=== PATIENT | female | born 1950 | race Caucasian/White ===

== ENCOUNTER 2019-11-23 10:41 | Outpatient (REF) | payer MEDICARE, OTHER, SELFPAY ==
[2019-11-23 12:15] LABS: MANUAL DIFF FLAG NO
[2019-11-23 12:23] LABS: Basophils Absolute Auto 0.1 X10*3/uL (0.0-0.2); Basophils Percent Auto 0.6 % (0-2); Eosinophils Absolute Auto 0.1 X10*3/uL (0.0-0.4); Eosinophils Percent Auto 1.4 % (0-4); Hematocrit 43.7 % (37-47); Hemoglobin 13.1 g/dl (12.0-16.0); Imm Gran Abs Auto 0.02 X10*3/uL (0.00-0.03); Imm Gran Pct Auto 0.2 % (0.0-0.4); Lymphocytes Absolute Auto 3.1 X10*3/uL (1.2-4.9); Lymphocytes Percent Auto 38.4 % (20-40); Mean Corpuscular Hemoglobin 22.8 pg (27.0-33.0); Mean Corpuscular Volume 76.1 fL (80-98); Mean Platelet Volume 9.5 fL (9.4-12.3); Monocytes Absolute Auto 0.5 X10*3/uL (0.1-1.2); Monocytes Percent Auto 5.6 % (2-11); Neutrophils Absolute Auto 4.4 X10*3/uL (2.0-8.3); Neutrophils Percent Auto 53.8 % (45-73); Platelet Count 469 X10*3/uL (160-400); Red Blood Count 5.74 X10*6/uL (4.20-5.50); Red Cell Distribution Width 14.4 % (11.0-16.0); White Blood Count 8.1 X10*3/uL (4.8-10.8)
[2019-11-23 12:57] LABS: Anion Gap 16 (12-20); Blood Urea Nitrogen 22 mg/dL (9-16); Carbon Dioxide 26 mmol/L (22-29); Chloride 99 mmol/L (96-108); Estimated Glomerular Filt Rate 55; Glucose Fasting 172 mg/dL (60-99); Potassium 4.7 mmol/l (3.3-5.1); Sodium 136 mmol/L (135-145)
[2019-11-23 13:19] LABS: Calcium 10.5 mg/dL (8.4-10.2)
[2019-11-23 14:43] LABS: Estimated Average Glucose 226 mg/dL; Hemoglobin A1c % 9.5 %
== END 2019-11-23 10:42 | disposition home or self-care (01) ==
LOC: HO.LAB 10:41
PROVIDERS: PCP Internal Medicine; Visit Provider Nurse Practitioner Family
DX: Z01.818 Encounter for other preprocedural examination (principal)
CPT/HCPCS: 36415; 80048; 83036; 85025

== ENCOUNTER 2020-01-20 07:05 | Outpatient (REF) | payer MEDICARE, OTHER, SELFPAY ==
[2020-01-20 07:45] LABS: Basophils Absolute Auto 0.1 X10*3/uL (0.0-0.2); Basophils Percent Auto 0.7 % (0-2); Eosinophils Absolute Auto 0.2 X10*3/uL (0.0-0.4); Eosinophils Percent Auto 2.3 % (0-4); Hemoglobin 12.2 g/dl (12.0-16.0); Imm Gran Abs Auto 0.02 X10*3/uL (0.00-0.03); Imm Gran Pct Auto 0.3 % (0.0-0.4); Lymphocytes Absolute Auto 3.1 X10*3/uL (1.2-4.9); Lymphocytes Percent Auto 42.1 % (20-40); Mean Corpuscular HGB Conc 30.5 g/dl (31.0-35.0); Mean Corpuscular Hemoglobin 22.8 pg (27.0-33.0); Mean Corpuscular Volume 74.9 fL (80-98); Monocytes Absolute Auto 0.4 X10*3/uL (0.1-1.2); Monocytes Percent Auto 5.4 % (2-11); Neutrophils Absolute Auto 3.7 X10*3/uL (2.0-8.3); Neutrophils Percent Auto 49.2 % (45-73); Platelet Count 412 X10*3/uL (160-400); Red Blood Count 5.34 X10*6/uL (4.20-5.50); Red Cell Distribution Width 14.3 % (11.0-16.0); White Blood Count 7.4 X10*3/uL (4.8-10.8)
[2020-01-20 07:46] LABS: MANUAL DIFF FLAG NO
[2020-01-20 07:56] LABS: Glucose Urine UA NEG (NEG); Leukocyte Esterase Urine NEG (NEG); Nitrite Urine NEG (NEG); Urine Blood 1+ (NEG); Urine Ketones NEG (NEG); Urine Protein NEG (NEG-TRACE)
[2020-01-20 08:03] LABS: Appearance Urine CLEAR; Color Urine YELLOW
[2020-01-20 08:16] LABS: Alanine Aminotransferase 22 U/L (0-31); Albumin Level 4.4 g/dL (3.5-5.0); Alkaline Phosphatase 109 U/L (39-117); Anion Gap 12 (12-20); Aspartate Amino Transferase 17 U/L (5-31); Bilirubin Total 0.5 mg/dL (0.0-1.0); Blood Urea Nitrogen 15 mg/dL (9-16); Calcium 9.9 mg/dL (8.4-10.2); Carbon Dioxide 28 mmol/L (22-29); Chloride 99 mmol/L (96-108); Cholesterol 187 mg/dL; Estimated Glomerular Filt Rate > 60; Glucose Random 243 mg/dL (60-115); HDL Cholesterol 47 mg/dL; LDL Cholesterol Calculated 111 mg/dl; Potassium 4.4 mmol/l (3.3-5.1); Sodium 135 mmol/L (135-145); Squamous Epithelial Cell Urine 1+ /LPF; Total Protein 7.4 g/dL (6.5-8.0); Triglycerides 148 mg/dL
[2020-01-20 09:08] LABS: Folate > 20.0 ng/mL (> or = 4.0); Vitamin B12 729 pg/mL (200-900)
[2020-01-20 09:19] LABS: Creatinine Urine 87.68 mg/dL; Microalbum/Creatinine Ratio Ur 51.3 ug/mg cr
== END 2020-01-20 07:06 | disposition home or self-care (01) ==
LOC: HO.LAB 07:05
PROVIDERS: PCP Internal Medicine; Visit Provider Internal Medicine
DX: E11.65 Type 2 diabetes mellitus with hyperglycemia (principal); E78.00 Pure hypercholesterolemia, unspecified
CPT/HCPCS: 36415; 80053; 80061; 81001; 82043; 82607; 82746; 84439; 84443; 85025

== ENCOUNTER → 2020-02-17 09:28 | Outpatient (BNVA) | payer MEDICARE, OTHER, SELFPAY | PROVIDERS: PCP Internal Medicine; Referring Provider Internal Medicine; Visit Provider Internal Medicine | DX: Z13.89 Encounter for screening for other disorder (principal) | CPT/HCPCS: Q3014 ==

== ENCOUNTER → 2020-02-23 12:18 | Outpatient (BNVA) | payer MEDICARE, OTHER, SELFPAY | PROVIDERS: PCP Internal Medicine; Visit Provider Dietitian, Registered | DX: Z76.89 Persons encountering health services in other specified circumstances (principal) ==

== ENCOUNTER 2020-03-29 11:20 | Outpatient (REF) | payer MEDICARE, OTHER, SELFPAY | END 2020-03-29 11:21 | disposition home or self-care (01) | LOC: HO.LAB 11:20 | PROVIDERS: PCP Neurological Surgery; Referring Provider Obstetrics & Gynecology; Visit Provider Internal Medicine | DX: Z20.822 Contact with and (suspected) exposure to COVID-19 (principal) | CPT/HCPCS: 36415; C9803; U0003; U0005 ==

== ENCOUNTER 2020-04-13 08:22 | Outpatient (REF) | payer MEDICARE, OTHER, SELFPAY ==
--- NOTE | ~2020-04-13 | MM_ITS ---
EXAMINATION: BONE DENSITOMETRY CLINICAL INDICATION: Age-related osteoporosis without current pathological fracture. COMPARISON: Baseline BD dated 06/12/2018. TECHNIQUE: Using a [employer] DXA System (software version: 13.1) manufactured by [employer], dual-energy x-ray absorptiometry was performed of the lumbar spine and left hip. The images are of good technical quality. Summary results are attached. FINDINGS: AP SPINE L1-L2 (excluding L3 and L4): The data of L1-L4 has been changed to exclude the L3 and L4 vertebral bodies, because hardware overlying these levels may cause overestimation of lumbar spine density. Current: BMD 0.673 g/cm2, Z-score -2.4, T-score -4.1, osteoporosis, 15.5% decrease from baseline (<5% change is not significant). Baseline: BMD 0.796 g/cm2. LEFT FEMUR, NECK: Current: BMD 0.641 g/cm2, Z-score -1.1, T-score -2.9, osteoporosis. Baseline: BMD 0.716 g/cm2. LEFT FEMUR, TOTAL: Current: BMD 0.631 g/cm2, Z-score -1.5, T-score -3.0, osteoporosis, 13.2% decrease from baseline (<5% change is not significant). Baseline: BMD 0.727 g/cm2. IDENTIFIED RISK FACTORS: Osteoporosis, history of fracture (adult). Early menopause, secondary osteoporosis, hysterectomy, left oophorectomy. HISTORY OF FRACTURE: Knee. MEDICATIONS: Calcium supplements or multivitamin, vitamin D. MM/XR DEXA axial skeleton IMPRESSION: 1. DIAGNOSIS: Osteoporosis based on the lowest T-score value of -4.1 in the lumbar spine applying World Health Organization criteria. 2. 10-YEAR FRACTURE RISK PREDICTION, FRAX: Major osteoporotic fracture (clinical spine, forearm, hip or shoulder) 26.8%. Hip fracture 8.3%. 3. Treatment Recommendations: NOF guidelines recommend consideration for treatment in postmenopausal women and men age 50 and older presenting with the following: -A hip or vertebral (clinical or morphometric) fracture. -T-score less than or equal to -2.5 at the femoral neck or spine after appropriate evaluation to exclude secondary causes. -Low bone mass at the hip or spine and a 10-year fracture probability by FRAX of greater than or equal to 3% for hip fracture or greater than or equal to 20% for major osteoporotic fracture based on the [place] adapted WHO algorithm. 4. Other Recommendations: All treatment decisions require clinical judgment and consideration of individual patient factors, including patient preferences, comorbidities, previous drug use, risk factors not captured in the FRAX model (e.g. frailty, falls, vitamin D deficiency, increased bone turnover, interval significant decline in bone density) and possible under or overestimation of fracture risk by FRAX. Additional medical evaluation for secondary cause of low bone mineral density may be appropriate. FUTURE SCAN RECOMMENDATION: People with diagnosed cases of osteoporosis or at high risk for fracture should have regular bone mineral density tests. For patients eligible for Medicare, routine testing is allowed once every 2 years. The testing frequency can be increased to one year for patients who have rapidly progressing disease, those who are receiving or discontinuing medical therapy to restore bone mass, or have additional risk factors.
== END 2020-04-13 08:23 | disposition home or self-care (01) ==
LOC: HO.MAMMO 08:22
PROVIDERS: Visit Provider Internal Medicine
DX: M81.0 Age-related osteoporosis without current pathological fracture (principal); E04.1 Nontoxic single thyroid nodule; Z78.0 Asymptomatic menopausal state; Z90.710 Acquired absence of both cervix and uterus; Z90.721 Acquired absence of ovaries, unilateral
CPT/HCPCS: 77080

== ENCOUNTER 2020-04-18 12:18 | Outpatient (REF) | payer MEDICARE, OTHER, SELFPAY ==
--- NOTE | ~2020-04-18 | US_ITS ---
EXAMINATION: US THYROID CLINICAL INFORMATION: Nontoxic single thyroid nodule. COMPARISON: None TECHNIQUE: Linear transducer grayscale and color Doppler examination with attention to the region of the thyroid. FINDINGS: SIZE: Measurements of the thyroid lobes and nodules are given in sagittal, anteroposterior and transverse dimensions respectively. Right Thyroid Lobe: 4.5 x 1.8 x 1.5 cm, volume 6.4 mL. Parenchyma: The gland echotexture is heterogeneous. Thyroid vascularity is normal. Left Thyroid Lobe: 4.8 x 1.9 x 1.3 cm, volume 6.2 mL. Parenchyma: The gland echotexture is heterogeneous. Thyroid vascularity is normal. Isthmus: 0.5 cm in maximum AP dimension. Estimated total number of nodules greater than or equal to 1 cm: 3. [employer] nodules are described as follows: 1. Location: Right mid. Size: 1.0 x 0.8 x 0.9 cm, volume 4 mL. Nodule characteristics: Composition: Solid (2). Echogenicity: Hypoechoic (2). Shape: Not taller than wide (0). Margins: Smooth (0). Echogenic Foci: Punctate echogenic foci (3). ACR TI-RADS total points: 7 ACR TI-RADS category: 5 2. Location: Right mid. Size: 1.0 x 0.8 x 0.8 cm, volume 0.3 mL. Nodule characteristics: Composition: Solid (2). Echogenicity: Hyperechoic (1). Shape: Not taller than wide (0). Margins: Ill-defined (0). Echogenic Foci: None (0). ACR TI-RADS total points: 3 ACR TI-RADS category: 3 3. Location: Left inferior. Size: 1.3 x 1.2 x 1.7 cm, volume 1.4 mL. Nodule characteristics: Composition: Solid (2). Echogenicity: Hyperechoic (1). Shape: Not taller than wide (0). Margins: Smooth (0). Echogenic Foci: None (0). ACR TI-RADS total points: 3 ACR TI-RADS category: 3 NODES: No lymphadenopathy is seen in the tissue surrounding the thyroid gland. US/US thyroid IMPRESSION: Bilateral thyroid nodules. Fine-needle aspiration of the 1 cm nodule with calcification in the mid right lobe and continued ultrasound follow-up should be considered as described below. ACR TI-RADS RECOMMENDATION REFERENCE: Ultrasound-guided fine-needle aspiration, followup ultrasound, no further follow up. * TR1 (0 point) and TR 2 (2 points): No FNA or follow up * TR3 (3 points): FNA if more than or equal to 2.5 cm in maximum dimension, followup ultrasound in 1, 3 and 5 years if 1.5 to 2.4 cm in maximum dimension. * TR4 (4-6 points): FNA if more than or equal to 1.5 cm in maximum dimension, followup ultrasound in 1, 2, 3 and 5 years if 1 to 1.4 cm in maximum dimension. * TR5 (more than or equal to 7 points): FNA if more than or equal to 1 cm in maximum dimension, followup ultrasound every year for 5 years if 0.5 to 0.9 cm in maximum dimension. * TR3, TR4 or TR5 nodules that are below the size threshold for follow up receive no follow up.
== END 2020-04-18 12:19 | disposition home or self-care (01) ==
LOC: HO.US 12:18
PROVIDERS: Visit Provider Internal Medicine
DX: E04.1 Nontoxic single thyroid nodule (principal); M81.0 Age-related osteoporosis without current pathological fracture
CPT/HCPCS: 76536

== ENCOUNTER 2020-04-19 13:31 | Outpatient (REF) | payer MEDICARE, OTHER, SELFPAY ==
[2020-04-19 16:02] LABS: MANUAL DIFF FLAG NO
[2020-04-19 16:18] LABS: Basophils Absolute Auto 0.1 X10*3/uL (0.0-0.2); Basophils Percent Auto 0.6 % (0-2); Eosinophils Absolute Auto 0.2 X10*3/uL (0.0-0.4); Eosinophils Percent Auto 2.6 % (0-4); Estimated Average Glucose 269 mg/dL; Hematocrit 40.1 % (37-47); Hemoglobin 12.4 g/dl (12.0-16.0); Imm Gran Abs Auto 0.02 X10*3/uL (0.00-0.03); Imm Gran Pct Auto 0.2 % (0.0-0.4); Lymphocytes Absolute Auto 3.9 X10*3/uL (1.2-4.9); Lymphocytes Percent Auto 44.2 % (20-40); Mean Corpuscular HGB Conc 30.9 g/dl (31.0-35.0); Mean Corpuscular Hemoglobin 23.2 pg (27.0-33.0); Mean Platelet Volume 9.9 fL (9.4-12.3); Monocytes Absolute Auto 0.5 X10*3/uL (0.1-1.2); Monocytes Percent Auto 5.8 % (2-11); Neutrophils Absolute Auto 4.1 X10*3/uL (2.0-8.3); Neutrophils Percent Auto 46.6 % (45-73); Platelet Count 420 X10*3/uL (160-400); Red Blood Count 5.35 X10*6/uL (4.20-5.50); Red Cell Distribution Width 14.4 % (11.0-16.0); White Blood Count 8.8 X10*3/uL (4.8-10.8)
[2020-04-19 16:30] LABS: Alanine Aminotransferase 21 U/L (0-31); Albumin Level 4.3 g/dL (3.5-5.0); Alkaline Phosphatase 97 U/L (39-117); Anion Gap 13 (12-20); Aspartate Amino Transferase 18 U/L (5-31); Bilirubin Total 0.4 mg/dL (0.0-1.0); Blood Urea Nitrogen 22 mg/dL (9-16); Calcium 10.2 mg/dL (8.4-10.2); Carbon Dioxide 26 mmol/L (22-29); Chloride 100 mmol/L (96-108); Cholesterol 230 mg/dL; Estimated Glomerular Filt Rate 48; Glucose Random 194 mg/dL (60-115); HDL Cholesterol 52 mg/dL; LDL Cholesterol Calculated 135 mg/dl; Phosphorus 3.4 mg/dL (2.7-4.5); Sodium 135 mmol/L (135-145); Total Protein 7.4 g/dL (6.5-8.0); Triglycerides 218 mg/dL
[2020-04-19 16:53] LABS: Glucose Urine UA 500 MG/DL (NEG); Leukocyte Esterase Urine TRACE (NEG); Nitrite Urine NEG (NEG); PH 5.5 (5.0-8.0); Specific Gravity - Urine 1.025 (1.005-1.025); Urine Blood TRACE (NEG); Urine Ketones 5 MG/DL (NEG); Urine Protein NEG (NEG-TRACE)
[2020-04-19 16:53] LABS: Free T4 (Free Thyroxine) 1.05 ng/dL (0.71-1.85); Thyroid Stimulating Hormone 1.65 uIU/mL (0.32-4.0); Vitamin D 25-OH Total 64.5 ng/mL (>30)
[2020-04-19 17:00] LABS: Appearance Urine CLEAR; Color Urine YELLOW
[2020-04-19 17:13] LABS: Folate > 20.0 ng/mL (> or = 4.0); Vitamin B12 743 pg/mL (200-900)
[2020-04-19 17:22] LABS: Creatinine Urine 116.42 mg/dL; Microalbum/Creatinine Ratio Ur 30.9 ug/mg cr
[2020-04-19 17:37] LABS: RBC Urine 0-2 /HPF (0); Squamous Epithelial Cell Urine TRACE /LPF
[2020-04-20 04:31] LABS: LDL Cholesterol Direct 135 mg/dL (<100)
[2020-04-20 11:42] LABS: Calcium (PTHI) 10.2 mg/dL (8.6-10.4); PTHI 29 pg/mL (14-64)
[2020-04-20 13:16] LABS: Prot Elec - Albumin 4.2 g/dL (3.8-4.8); Prot Elec - Alpha1 0.3 g/dL (0.2-0.3); Prot Elec - Alpha2 0.9 g/dL (0.5-0.9); Prot Elec - Beta 1 0.5 g/dL (0.4-0.6); Prot Elec - Beta 2 0.4 g/dL (0.2-0.5); Prot Elec - Total Protein 7.3 g/dL (6.1-8.1)
[2020-04-20 15:36] LABS: Calcium, Ionized 5.4 mg/dL (4.8-5.6)
[2020-04-22 12:11] LABS: Alkaline Phosphatase Bone 17.3 mcg/L (5.6-29.0)
[2020-04-25 08:40] LABS: Glutamic acid decarboxylase Ab <5 IU/mL (<5)
[2020-04-26 04:48] LABS: Islet Cell Antibody Screen NEGATIVE (NEGATIVE)
[2020-04-29 16:01] LABS: Insulinoma associated 2 aatb <5.4 U/mL (<5.4)
== END 2020-04-19 13:32 | disposition home or self-care (01) ==
LOC: HO.LAB 13:31
PROVIDERS: PCP Internal Medicine; Visit Provider Internal Medicine
DX: E11.65 Type 2 diabetes mellitus with hyperglycemia (principal); Z79.4 Long term (current) use of insulin; I10 Essential (primary) hypertension; E04.1 Nontoxic single thyroid nodule; E55.9 Vitamin D deficiency, unspecified; E78.5 Hyperlipidemia, unspecified; M81.0 Age-related osteoporosis without current pathological fracture
CPT/HCPCS: 36415; 80053; 80061; 81001; 82043; 82306; 82330; 82607; 82746; 82947; 83036; 83721; 83970; 84075; 84100; 84155; 84165; 84439; 84443; 85025; 86255; 86341; 96372; 99212; J1815

== ENCOUNTER 2020-04-21 07:53 | Outpatient (REF) | payer MEDICARE, OTHER, SELFPAY ==
[2020-04-21 09:04] LABS: Creatinine, mg/dL 37.62
[2020-04-21 09:05] LABS: Creatinine, 24Hr Urine 0.5 G/Day (1.0-2.0); Total Volume 24 Hour Urine 1375 mL
[2020-04-22 17:17] LABS: Calcium, 24 Hr Urine 47 mg/24 h; Calcium/Creatinine Ratio 85 mg/g creat (30-275); Creatinine 24Hr Urine 0.55 g/24 h (0.50-2.15)
[2020-04-26 07:22] LABS: N-Telopeptide 50 (see note); NTXCreaRU 26 mg/dL (20-275)
== END 2020-04-21 07:54 | disposition home or self-care (01) ==
LOC: HO.LNP 07:53
PROVIDERS: Visit Provider Internal Medicine
DX: M81.0 Age-related osteoporosis without current pathological fracture (principal)
CPT/HCPCS: 82340; 82523; 82570

== ENCOUNTER 2020-08-10 14:41 | Outpatient (REF) | payer MEDICARE, OTHER, SELFPAY ==
[2020-08-10 15:30] LABS: Glucose Urine UA 250 MG/DL (NEG); Leukocyte Esterase Urine TRACE (NEG); Nitrite Urine NEG (NEG); PH 5.5 (5.0-8.0); Specific Gravity - Urine 1.025 (1.005-1.025); UACC Culture Trigger YES; Urine Blood 1+ (NEG); Urine Ketones 5 MG/DL (NEG); Urine Protein NEG (NEG-TRACE)
[2020-08-10 15:32] LABS: Appearance Urine CLEAR; Color Urine YELLOW
[2020-08-10 15:40] LABS: Bacteria Urine 1+ /LPF; Squamous Epithelial Cell Urine 1+ /LPF; UACC CULT YES; WBC Urine 0-2 /HPF (0-4)
[2020-08-10 15:41] LABS: Alanine Aminotransferase 34 U/L (0-31); Albumin Level 4.4 g/dL (3.5-5.0); Alkaline Phosphatase 93 U/L (39-117); Anion Gap 16 (12-20); Aspartate Amino Transferase 27 U/L (5-31); Bilirubin Total 0.3 mg/dL (0.0-1.0); Blood Urea Nitrogen 24 mg/dL (9-16); Calcium 10.5 mg/dL (8.4-10.2); Carbon Dioxide 25 mmol/L (22-29); Chloride 100 mmol/L (96-108); Estimated Glomerular Filt Rate 40; Glucose Random 279 mg/dL (60-115); Potassium 4.7 mmol/L (3.3-5.1); Sodium 136 mmol/L (135-145); Total Protein 7.7 g/dL (6.5-8.0)
[2020-08-10 16:00] LABS: Free T4 (Free Thyroxine) 1.11 ng/dL (0.71-1.85); Thyroid Stimulating Hormone 1.19 uIU/mL (0.32-4.0)
== END 2020-08-10 14:42 | disposition home or self-care (01) ==
LOC: HO.LAB 14:41
PROVIDERS: Internal Medicine; PCP Internal Medicine; Visit Provider Internal Medicine
DX: R30.0 Dysuria (principal)
CPT/HCPCS: 36415; 80053; 81001; 84439; 84443; 87086

== ENCOUNTER 2021-01-06 10:41 | Outpatient (REF) | payer MEDICARE, OTHER, SELFPAY ==
[2021-01-06 11:18] LABS: Appearance Urine CLEAR; Color Urine YELLOW; Glucose Urine UA >=1000 MG/DL (NEG); Leukocyte Esterase Urine NEG (NEG); Nitrite Urine NEG (NEG); Specific Gravity - Urine <= 1.005 (1.005-1.025); Urine Blood TRACE (NEG); Urine Ketones NEG (NEG); Urine Protein NEG (NEG-TRACE)
[2021-01-06 11:19] LABS: Hematocrit 42.2 % (37.0-47.0); Hemoglobin 12.7 g/dl (12.0-16.0); Mean Corpuscular HGB Conc 30.1 g/dl (31.0-35.0); Mean Corpuscular Hemoglobin 22.8 pg (27.0-33.0); Mean Corpuscular Volume 75.8 fL (80.0-98.0); Mean Platelet Volume 9.5 fL (9.4-12.3); Platelet Count 366 X10*3/uL (160-400); Red Blood Count 5.57 X10*6/uL (4.20-5.50); Red Cell Distribution Width 14.9 % (11.0-16.0); White Blood Count 7.2 X10*3/uL (4.8-10.8)
[2021-01-06 11:28] LABS: RBC Urine 0-2 /HPF (0); Squamous Epithelial Cell Urine TRACE /LPF
[2021-01-06 11:33] LABS: Creatinine Urine 29.15 mg/dL; Microalbum/Creatinine Ratio Ur 27.4 ug/mg cr
[2021-01-06 12:00] LABS: Alanine Aminotransferase 28 U/L (0-31); Albumin Level 4.3 g/dL (3.5-5.0); Alkaline Phosphatase 72 U/L (39-117); Anion Gap 13 (12-20); Aspartate Amino Transferase 21 U/L (5-31); Bilirubin Direct < 0.2 mg/dL (0.0-0.5); Bilirubin Total 0.3 mg/dL (0.0-1.0); Blood Urea Nitrogen 25 mg/dL (9-16); Calcium 9.8 mg/dL (8.4-10.2); Carbon Dioxide 24 mmol/L (22-29); Chloride 102 mmol/L (96-108); Cholesterol 204 mg/dL; Estimated Glomerular Filt Rate 43; HDL Cholesterol 51 mg/dL; LDL Cholesterol Calculated 116 mg/dl; Potassium 4.5 mmol/L (3.3-5.1); Sodium 134 mmol/L (135-145); Triglycerides 186 mg/dL
[2021-01-06 12:01] LABS: Total Protein 7.3 g/dL (6.5-8.0)
[2021-01-06 12:16] LABS: Thyroid Stimulating Hormone 0.98 uIU/mL (0.32-4.0)
[2021-01-07 06:44] LABS: Glucose Random 368 mg/dL (60-115)
== END 2021-01-06 10:42 | disposition home or self-care (01) ==
LOC: HO.LAB 10:41
PROVIDERS: PCP Internal Medicine; Visit Provider Internal Medicine
DX: E11.65 Type 2 diabetes mellitus with hyperglycemia (principal); Z79.4 Long term (current) use of insulin
CPT/HCPCS: 36415; 80048; 80061; 80076; 81001; 81003; 82043; 84443; 85027

== ENCOUNTER 2021-06-27 09:36 | Outpatient (REF) | payer MEDICARE, OTHER, SELFPAY ==
[2021-06-27 09:52] LABS: MANUAL DIFF FLAG NO
[2021-06-27 10:34] LABS: Basophils Absolute Auto 0.1 X10*3/uL (0.0-0.2); Basophils Percent Auto 0.9 % (0-2); Eosinophils Absolute Auto 0.2 X10*3/uL (0.0-0.4); Eosinophils Percent Auto 2.7 % (0-4); Hematocrit 43.1 % (37.0-47.0); Hemoglobin 13.1 g/dl (12.0-16.0); Imm Gran Abs Auto 0.04 X10*3/uL (0.00-0.03); Imm Gran Pct Auto 0.6 % (0.0-0.4); Lymphocytes Absolute Auto 2.5 X10*3/uL (1.2-4.9); Lymphocytes Percent Auto 37.6 % (20-40); Mean Corpuscular HGB Conc 30.4 g/dl (31.0-35.0); Mean Corpuscular Volume 75.7 fL (80.0-98.0); Mean Platelet Volume 9.7 fL (9.4-12.3); Monocytes Absolute Auto 0.5 X10*3/uL (0.1-1.2); Monocytes Percent Auto 7.2 % (2-11); Neutrophils Absolute Auto 3.3 x10*3/uL (2.0-8.3); Platelet Count 338 X10*3/uL (160-400); Red Blood Count 5.69 X10*6/uL (4.20-5.50); Red Cell Distribution Width 15.6 % (11.0-16.0); White Blood Count 6.6 X10*3/uL (4.8-10.8)
[2021-06-27 11:13] LABS: Alanine Aminotransferase 30 U/L (0-31); Albumin Level 4.3 g/dL (3.5-5.0); Alkaline Phosphatase 74 U/L (39-117); Anion Gap 15 (12-20); Aspartate Amino Transferase 26 U/L (5-31); Bilirubin Total 0.3 mg/dL (0.0-1.0); Blood Urea Nitrogen 21 mg/dL (9-16); Calcium 10.1 mg/dL (8.4-10.2); Carbon Dioxide 25 mmol/L (22-29); Chloride 99 mmol/L (96-108); Cholesterol 222 mg/dL; Estimated Glomerular Filt Rate 47; Glucose Random 343 mg/dL (60-115); HDL Cholesterol 60 mg/dL; LDL Cholesterol Calculated 134 mg/dl; Potassium 4.6 mmol/L (3.3-5.1); Sodium 134 mmol/L (135-145); Total Protein 7.5 g/dL (6.5-8.0); Triglycerides 144 mg/dL
[2021-06-27 11:20] LABS: Estimated Average Glucose 243 mg/dL; Hemoglobin A1c % 10.1 %
== END 2021-06-27 09:37 | disposition home or self-care (01) ==
LOC: HO.LAB 09:36
PROVIDERS: PCP Internal Medicine; Visit Provider Internal Medicine
DX: E78.00 Pure hypercholesterolemia, unspecified (principal); E11.65 Type 2 diabetes mellitus with hyperglycemia
CPT/HCPCS: 36415; 80053; 80061; 83036; 85025

== ENCOUNTER → 2021-07-24 07:56 | Outpatient (BNVA) | payer MEDICARE, OTHER, SELFPAY | PROVIDERS: PCP Internal Medicine; Visit Provider Internal Medicine | DX: E11.65 Type 2 diabetes mellitus with hyperglycemia (principal); E78.5 Hyperlipidemia, unspecified; M81.0 Age-related osteoporosis without current pathological fracture; E04.1 Nontoxic single thyroid nodule; I12.9 Hypertensive chronic kidney disease with stage 1 through stage 4 chronic kidney disease, or unspecified chronic kidney disease; N18.30 Chronic kidney disease, stage 3 unspecified; R77.8 Other specified abnormalities of plasma proteins; E55.9 Vitamin D deficiency, unspecified; Z79.4 Long term (current) use of insulin; Z79.899 Other long term (current) drug therapy | CPT/HCPCS: Q3014 ==

== ENCOUNTER 2021-07-25 07:29 | Outpatient (REF) | payer MEDICARE, OTHER, SELFPAY ==
[2021-07-25 08:56] LABS: Alanine Aminotransferase 26 U/L (0-31); Albumin Level 4.5 g/dL (3.5-5.0); Alkaline Phosphatase 77 U/L (39-117); Anion Gap 15 (12-20); Aspartate Amino Transferase 23 U/L (5-31); Bilirubin Total 0.4 mg/dL (0.0-1.0); Blood Urea Nitrogen 21 mg/dL (9-16); Calcium 10.5 mg/dL (8.4-10.2); Carbon Dioxide 26 mmol/L (22-29); Chloride 101 mmol/L (96-108); Estimated Glomerular Filt Rate 52; Glucose Random 254 mg/dL (60-115); Phosphorus 3.3 mg/dL (2.7-4.5); Potassium 4.8 mmol/L (3.3-5.1); Sodium 137 mmol/L (135-145); Total Protein 7.8 g/dL (6.5-8.0)
[2021-07-25 09:09] LABS: Appearance Urine CLEAR; Color Urine YELLOW; Glucose Urine UA NEG (NEG); Leukocyte Esterase Urine 1+ (NEG); Nitrite Urine NEG (NEG); Specific Gravity - Urine <= 1.005 (1.005-1.025); UACC Culture Trigger YES; Urine Blood TRACE (NEG); Urine Ketones NEG (NEG); Urine Protein NEG (NEG-TRACE)
[2021-07-25 09:18] LABS: Free T4 (Free Thyroxine) 1.21 ng/dL (0.71-1.85); Thyroid Stimulating Hormone 0.96 uIU/mL (0.32-4.0); Vitamin D 25-OH Total 51.1 ng/mL (>30)
[2021-07-25 09:29] LABS: Bacteria Urine TRACE /LPF; Squamous Epithelial Cell Urine 1+ /LPF
[2021-07-26 15:51] LABS: Calcium (PTHI) 10.4 mg/dL (8.6-10.4); PTHI 35 pg/mL (16-77)
[2021-07-27 11:11] LABS: Prot Elec - Albumin 4.4 g/dL (3.8-4.8); Prot Elec - Alpha1 0.3 g/dL (0.2-0.3); Prot Elec - Beta 1 0.5 g/dL (0.4-0.6); Prot Elec - Beta 2 0.5 g/dL (0.2-0.5); Prot Elec - Gamma 1.1 g/dL (0.8-1.7); Prot Elec - Total Protein 7.8 g/dL (6.1-8.1)
[2021-07-31 12:47] LABS: Calcium, Ionized 5.6 mg/dL (4.8-5.6)
[2021-08-01 12:47] LABS: Alkaline Phosphatase Bone 13.1 mcg/L (5.6-29.0)
== END 2021-07-25 07:30 | disposition home or self-care (01) ==
LOC: HO.LAB 07:29
PROVIDERS: Absent Provider Surgery Plastic and Reconstructive Surgery; PCP Internal Medicine; Visit Provider Internal Medicine
DX: E04.1 Nontoxic single thyroid nodule (principal); E55.9 Vitamin D deficiency, unspecified; M81.0 Age-related osteoporosis without current pathological fracture; R30.0 Dysuria
CPT/HCPCS: 36415; 80053; 81001; 82306; 82330; 83970; 84075; 84100; 84165; 84439; 84443; 87086

== ENCOUNTER 2021-07-27 07:31 | Outpatient (REF) | payer MEDICARE, OTHER, SELFPAY ==
[2021-07-27 08:06] LABS: Total Volume 24 Hour Urine 2500 mL
[2021-07-27 08:12] LABS: Creatinine, 24Hr Urine 0.6 G/Day (1.0-2.0); Creatinine, mg/dL 24.32
[2021-07-30 17:52] LABS: Calcium, 24 Hr Urine 25 mg/24 h; Calcium/Creatinine Ratio 38 mg/g creat (30-275); Creatinine 24Hr Urine 0.65 g/24 h (0.50-2.15)
[2021-08-02 06:27] LABS: N-Telopeptide 39 (see note); NTXCreaRU 90 mg/dL (20-275)
== END 2021-07-27 07:32 | disposition home or self-care (01) ==
LOC: HO.LNP 07:31
PROVIDERS: Visit Provider Internal Medicine
DX: M81.0 Age-related osteoporosis without current pathological fracture (principal)
CPT/HCPCS: 82340; 82523; 82570

== ENCOUNTER → 2021-08-09 08:04 | Outpatient (BNVA) | payer MEDICARE, OTHER, SELFPAY | PROVIDERS: PCP Internal Medicine; Visit Provider Registered Nurse Diabetes Educator | DX: E11.65 Type 2 diabetes mellitus with hyperglycemia (principal); Z79.4 Long term (current) use of insulin | CPT/HCPCS: 99211 ==

== ENCOUNTER → 2021-08-24 12:55 | Outpatient (BNVA) | payer MEDICARE, OTHER, SELFPAY | PROVIDERS: PCP Internal Medicine; Visit Provider Registered Nurse Diabetes Educator | DX: E11.65 Type 2 diabetes mellitus with hyperglycemia (principal); E11.22 Type 2 diabetes mellitus with diabetic chronic kidney disease; N18.9 Chronic kidney disease, unspecified; Z79.4 Long term (current) use of insulin | CPT/HCPCS: 99211 ==

== ENCOUNTER 2021-10-26 07:35 | Outpatient (REF) | payer MEDICARE, OTHER, SELFPAY ==
[2021-10-26 08:58] LABS: Appearance Urine Clear; Color Urine Yellow; Glucose Urine UA Negative (Negative); Leukocyte Esterase Urine Moderate (2+) (Negative); Nitrite Urine Negative (Negative); PH 5.5 (5.0-9.0); Specific Gravity - Urine 1.015 (1.005-1.025); Urine Blood Negative (Negative); Urine Ketones Negative (Negative); Urine Protein Negative (Neg-Trace)
[2021-10-26 09:10] LABS: Bacteria Urine None Seen (None Seen); Hyaline Casts Urine 0-2 /LPF (0-2); RBC Urine 0-2 /HPF (0-2); Squamous Epithelial Cell Urine 0-2 /HPF (0-2); WBC Urine 21-50 /HPF (0-5)
[2021-10-26 09:12] LABS: UACC Culture Trigger YES
== END 2021-10-26 07:36 | disposition home or self-care (01) ==
LOC: HO.LAB 07:35
PROVIDERS: PCP Internal Medicine; Visit Provider Internal Medicine
DX: R30.0 Dysuria (principal)
CPT/HCPCS: 81001; 81003; 87086

== ENCOUNTER 2021-11-28 09:18 | Outpatient (REF) | payer MEDICARE, OTHER, SELFPAY ==
--- NOTE | ~2021-11-28 | MM_ITS ---
EXAMINATION: MM SCREENING DIGITAL BREAST TOMOSYNTHESIS, BILATERAL CLINICAL INFORMATION: Screening. Asymptomatic. The lifetime risk of breast cancer based on the Tyrer-Cuzick Model is 4%. COMPARISON: Mammography: 06/12/2018; outside mammography 07/23/2017, 07/30/2016 ([facility]). TECHNIQUE: Digital breast tomosynthesis is performed in both the craniocaudal and mediolateral oblique views along with computer-aided detection (CAD). Synthesized 2D images are generated from the tomosynthesis. FINDINGS: There are scattered areas of fibroglandular density (ACR BI-RADS breast composition Category b). There are no significant masses, abnormal calcifications, or other abnormalities. Parenchymal pattern is similar to prior studies. There is no developing density or architectural abnormality. The axilla and skin contours are unremarkable. No significant changes from prior exams. MM/MM tomosynthesis screening BI IMPRESSION: No mammographic evidence of malignancy. ASSESSMENT: BI-RADS 1: Negative RECOMMENDATION: Routine annual mammography screening. This patient's information was entered into a reminder system with a target due date for their next mammogram.
== END 2021-11-28 09:19 | disposition home or self-care (01) ==
LOC: HO.MAMMO 09:18
PROVIDERS: PCP Internal Medicine; Visit Provider Internal Medicine
DX: Z12.31 Encounter for screening mammogram for malignant neoplasm of breast (principal)
CPT/HCPCS: 77063; 77067

== ENCOUNTER → 2022-02-07 11:41 | Outpatient (BNVA) | payer MEDICARE, OTHER, SELFPAY | PROVIDERS: PCP Internal Medicine; Visit Provider Internal Medicine | DX: E11.65 Type 2 diabetes mellitus with hyperglycemia (principal); E11.22 Type 2 diabetes mellitus with diabetic chronic kidney disease; I12.9 Hypertensive chronic kidney disease with stage 1 through stage 4 chronic kidney disease, or unspecified chronic kidney disease; N18.9 Chronic kidney disease, unspecified; M81.0 Age-related osteoporosis without current pathological fracture; E78.5 Hyperlipidemia, unspecified; E04.1 Nontoxic single thyroid nodule; E55.9 Vitamin D deficiency, unspecified; R77.8 Other specified abnormalities of plasma proteins; Z79.4 Long term (current) use of insulin | CPT/HCPCS: 36415; 80053; 80061; 82043; 82306; 82607; 82947; 83036; 83721; 83970; 84100; 99212 ==

== ENCOUNTER 2022-02-07 12:59 | Outpatient (REF) | payer MEDICARE, OTHER, SELFPAY ==
[2022-02-07 14:15] LABS: Estimated Average Glucose 189 mg/dL; Hemoglobin A1c % 8.2 %
[2022-02-07 14:36] LABS: Alanine Aminotransferase 21 U/L (0-31); Albumin Level 4.4 g/dL (3.5-5.0); Alkaline Phosphatase 76 U/L (39-117); Anion Gap 17 (12-20); Aspartate Amino Transferase 21 U/L (5-31); Bilirubin Total 0.3 mg/dL (0.0-1.0); Blood Urea Nitrogen 25 mg/dL (9-16); Calcium 10.5 mg/dL (8.4-10.2); Carbon Dioxide 23 mmol/L (22-29); Chloride 103 mmol/L (96-108); Cholesterol 202 mg/dL; Estimated Glomerular Filt Rate 52; Glucose Random 121 mg/dL (60-115); HDL Cholesterol 49 mg/dL; LDL Cholesterol Calculated 130 mg/dl; Potassium 4.6 mmol/L (3.3-5.1); Sodium 138 mmol/L (135-145); Total Protein 7.4 g/dL (6.5-8.0); Triglycerides 115 mg/dL; Vitamin D 25-OH Total 48.8 ng/mL (>30)
[2022-02-07 14:42] LABS: Vitamin B12 943 pg/mL (200-900)
[2022-02-07 15:31] LABS: Microalbum/Creatinine Ratio Ur 33.7 ug/mg cr
[2022-02-08 21:13] LABS: LDL Cholesterol Direct 131 mg/dL (<100)
[2022-02-10 13:39] LABS: Calcium (PTHI) 10.5 mg/dL (8.6-10.4); PTHI 36 pg/mL (16-77)
== END 2022-02-07 13:00 | disposition home or self-care (01) ==
LOC: HO.10HDL 12:59
PROVIDERS: Visit Provider Internal Medicine
DX: Z13.89 Encounter for screening for other disorder (principal)
CPT/HCPCS: 36415; 80053; 80061; 82043; 82306; 82607; 83036; 83721; 83970; 84100

== ENCOUNTER 2022-02-23 11:33 | Emergency (ER) | payer MEDICARE, SELFPAY ==
--- NOTE | 2022-02-23 11:38 | ED_ITS ---
HPI - General Adult General Chief complaint: Extremity Problem <BASSAM Valdez - Last Filed: 02/23/22 11:41> Stated complaint: pain in l arm <BASSAM Valdez - Last Filed: 02/23/22 11:41> Time Seen by Provider: 02/23/22 12:53 <BASSAM Valdez - Last Filed: 02/23/22 11:41> Source: patient <BASSAM Howard - Last Filed: 02/23/22 13:14> Mode of arrival: ambulatory <BASSAM Howard - Last Filed: 02/23/22 13:14> History of Present Illness HPI narrative: 71-year-old female with a past medical history of CKD, GERD, HLD, hypertension, diabetes, presenting to the ED complaining of left arm pain x2 days with associated generalized fatigue/malaise. Admits symptoms resolved/improved at present. Denies known injury, trauma, fall, SOB/CP, numbness, tingling, weakness <BASSAM Howard - Last Filed: 02/23/22 13:14> Onset (ago): day(s) <BASSAM Howard - Last Filed: 02/23/22 13:14> Related Data Home medications: Home Medications Medication Instructions Recorded Confirmed amlodipine 5 mg tablet 5 mg PO DAILY 11/12/21 02/07/22 metformin 1,000 mg tablet 1,000 mg PO BID 02/07/22 02/07/22 Previous Rx's Medication Instructions Recorded nystatin-triamcinolone 100,000 1 appl topical DAILY #30 grams 02/15/21 unit/gram-0.1 % topical ointment blood sugar diagnostic (FreeStyle #120 ea 07/11/21 Lite Strips) blood sugar diagnostic (OneTouch #100 ea 07/24/21 Ultra Test strips) flash glucose scanning reader #1 ea 07/27/21 (FreeStyle Lyndsay 14 Day [place]) flash glucose sensor (FreeStyle #6 kits 07/27/21 Lyndsay 14 Day Sensor kit) insulin aspart U-100 100 unit/mL 10 unit (0.1 mL) subcut TID 30 08/09/21 (3 mL) subcutaneous pen (Novolog days #9 mL FlexPen U-100 Insulin aspart) pen needle, diabetic 32 gauge x #100 ea 08/09/21 gabapentin 100 mg capsule 200 mg PO BEDTIME 90 days #180 caps 11/12/21 losartan 100 mg tablet 100 mg PO DAILY #90 tabs 12/13/21 atorvastatin 80 mg tablet 80 mg PO BEDTIME 30 days #30 tabs 02/07/22 eszopiclone 1 mg tablet (Lunesta) 1 mg PO BEDTIME #30 tabs 02/08/22 insulin detemir U-100 100 unit/mL 30 unit (0.3 mL) subcut DAILY #30 02/18/22 (3 mL) subcutaneous pen (Levemir mL FlexTouch U-100 Insulin) acetaminophen 500 mg tablet 500 mg PO Q6H PRN fever or pain 02/23/22 (Tylenol Extra Strength) #14 tabs lidocaine 5 % topical patch 1 patch topical DAILY PRN pain #30 02/23/22 (Lidoderm) ea <BASSAM Valdez Last Filed: 02/23/22 11:41> Allergies/adverse reactions: Allergies Allergy/AdvReac Type Severity Reaction Status Date / Time dulaglutide [From [facility]] AdvReac Intermediate nausea Verified 02/07/22 11:53 glipizide AdvReac Intermediate patient Verified 02/07/22 11:53 <BASSAM Valdez Last Filed: 02/23/22 11:41> Review of Systems Review of Systems: Constitutional: No Fever, No Chills ENT/Mouth: No Ear Pain, No Nasal Congestion, No sore throat, No Rhinorrhea, No Swallowing Difficulty Cardiovascular: No Chest Pain, No SOB Respiratory: No Cough, No Sputum, No Wheezing Gastrointestinal: No Nausea, No Vomiting, No Diarrhea, No Constipation, No A bdominal pain Genitourinary: No Dysuria, No Urinary Frequency, No Hematuria, No Flank Pain Musculoskeletal: + joint pain, No Myalgias, No Joint Swelling Skin: No Skin Lesions, No rash Neuro: No Weakness, No Numbness, No Paresthesias <BASSAM Howard Last Filed: 02/23/22 13:14> Yes all other systems are reviewed and are negative <BASSAM Howard Last Filed: 02/23/22 13:14> Constitutional: Constitutional: Reports as per HPI <BASSAM Howard Last Filed: 02/23/22 13:14> [facility] Past Medical History Attestation statement: The following information was validated with the patient. <BASSAM Howard - Last Filed: 02/23/22 13:14> Medical History: Medical History Abnormal SPEP CKD (chronic kidney disease) Common bile duct dilatation Esophageal hernia GERD (gastroesophageal reflux disease) H. pylori duodenitis Hypercholesterolemia Hypertension Insomnia Osteoporosis Thyroid nodule Tubular adenoma of colon Type 2 diabetes mellitus with hyperglycemia Vitamin D deficiency <BASSAM Valdez - Last Filed: 02/23/22 11:41> Surgical History: Surgical History H/O: hysterectomy History of back surgery History of partial hysterectomy S/P epidural steroid injection Status post lumbar spine surgery for decompression of spinal cord <BASSAM Valdez - Last Filed: 02/23/22 11:41> Family History Family History: Family History Father No problems noted. Mother Diabetes <BASSAM Valdez - Last Filed: 02/23/22 11:41> Social History Social History: Social History Housing: House Are you a primary primary care physician to a significant other at home: No Alcohol intake: never Patient Tobacco Use Status: Never used Tobacco e-Cigarette/Vaping Use: Never Used Second Hand Smoke Exposure: No Advance Directives: Yes Advance Directives Information Provided: No Advance Directives on File: No service: No Current occupational status: retired Cognitive needs: No Hearing needs: No Vision needs: Yes (Glasses) <BASSAM Valdez - Last Filed: 02/23/22 11:41> Physical Exam ED Vital Signs: Vital Signs - 24 hr 02/23/22 11:39 Temperature 97.8 F Pulse Rate 97 Respiratory Rate 18 Blood Pressure 144/74 H Pulse Oximetry 97 Oxygen Delivery Method Room Air BMI result Body Mass Index 28.5 <BASSAM Valdez - Last Filed: 02/23/22 11:41> Vital Signs - 24 hr 02/23/22 11:39 Temperature 97.8 F Pulse Rate 97 Respiratory Rate 18 Blood Pressure 144/74 H Pulse Oximetry 97 Oxygen Delivery Method Room Air BMI result Body Mass Index 28.5 <BASSAM Howard - Last Filed: 02/23/22 13:14> Const General: cooperative, healthy appearing and no acute distress <BASSAM Howard - Last Filed: 02/23/22 13:14> Orientation/consciousness: patient oriented x3 <BASSAM Howard - Last Filed: 02/23/22 13:14> Limitations: no limitations <BASSAM Howard - Last Filed: 02/23/22 13:14> HENMT Head: Yes normal to inspection and Yes atraumatic <BASSAM Howard - Last Filed: 02/23/22 13:14> Ears: hearing grossly normal bilaterally <BASSAM Howard - Last Filed: 02/23/22 13:14> General nose exam: Normal external nose present <BASSAM Howard - Last Filed: 02/23/22 13:14> Face and sinus: Yes normal facial exam <BASSAM Howard - Last Filed: 02/23/22 13:14> Eyes General: appearance normal, both eyes and all related structures <BASSAM Howard - Last Filed: 02/23/22 13:14> EOM: EOMs intact bilaterally <BASSAM Howard - Last Filed: 02/23/22 13:14> Neck Neck: Yes normal visual inspection and Yes no meningeal signs <BASSAM Howard - Last Filed: 02/23/22 13:14> Resp Effort & Inspection: normal respiratory effort and no respiratory distress <BASSAM Howard - Last Filed: 02/23/22 13:14> Auscultation: clear to auscultation bilaterally <BASSAM Howard - Last Filed: 02/23/22 13:14> Cardio Rate: regular rate <BASSAM Howard - Last Filed: 02/23/22 13:14> Heart sounds: S1 normal heart sound present and S2 normal heart sound present <BASSAM Howard - Last Filed: 02/23/22 13:14> Peripheral pulses: radial pulses present and ulnar radial pulses present <BASSAM Howard Last Filed: 02/23/22 13:14> Skin Rashes: no rashes <BASSAM Howard Last Filed: 02/23/22 13:14> Wounds: no wounds <BASSAM Howard Last Filed: 02/23/22 13:14> Neuro General: patient oriented x3, tone normal and no meningeal signs <BASSAM Howard Last Filed: 02/23/22 13:14> Gait exam (Neuro): Normal gait present <BASSAM Howard Last Filed: 02/23/22 13:14> Extrem Other: Left deltoid with mild tenderness to palpation. No appreciable deformity/ecchymosis or erythema. Full range of motion to shoulder intact. Neurovascular intact distally. <BASSAM Howard Last Filed: 02/23/22 13:14> General: Yes normal to inspection <BASSAM Howard Last Filed: 02/23/22 13:14> Course Course Course Narrative: RME performed by Luz Barajas PA-C. Patient is a 71 year old female presenting to the emergency department with left arm pain. Patient states that she is also more tired than usual over the last few days. States the pain is j umping from spot to spot on her left arm. Labs and EKG ordered. Patient placed back in waiting room pending results and room availability. <BASSAM Valdez Last Filed: 02/23/22 11:41> RME performed by Luz Barajas PA-C. Patient is a 71 year old female presenting to the emergency department with left arm pain. Patient states that she is also more tired than usual over the last few days. States the pain is jumping from spot to spot on her left arm. Labs and EKG ordered. Patient placed back in waiting room pending results and room availability. -1309--BUN acute on chronically elevated. Labs otherwise reassuring. Troponin negative -COVID-19/influenza/RSV negative <BASSAM Howard Last Filed: 02/23/22 13:14> Medical Decision Making Medical Decision Making MDM Narrative: 71-year-old female with a past medical history of CKD, GERD, HLD, hypertension, diabetes, presenting to the ED complaining of left arm pain x2 days with associated generalized fatigue/malaise. On exam vital signs stable, NAD, nontoxic appearing, physical exam as above. Patient reports symptomatic improvement at present. Concern for atypical ACS vs MSK pain/strain. Low suspicion for fracture, no evidence of infection Plan: EKG, labs Please refer to course for remaining clinical decision making, interpretation of labs/imaging results, and discussions with consultants and/or family members. <BASSAM Howard - Last Filed: 02/23/22 13:14> Differential Diagnosis Differential Diagnoses: The differential diagnosis associated with the presentation includes <BASSAM Howard - Last Filed: 02/23/22 13:14> As above <BASSAM Howard - Last Filed: 02/23/22 13:14> Lab Data MDM Lab Attestation statement: I reviewed the patient's lab results. <BASSAM Howard - Last Filed: 02/23/22 13:14> Result Diagrams: 02/23/22 12:05 02/23/22 12:05 <BASSAM Valdez - Last Filed: 02/23/22 11:41> Labs: Lab Results 02/23/22 02/23/22 02/23/22 Range/Units 12:05 12:05 12:05 WBC 9.2 (4.8-10.8) X10*3/uL RBC 5.07 (4.20-5.50) X10*6/uL Hgb 11.2 L (12.0-16.0) g/dl Hct 37.1 (37.0-47.0) % MCV 73.2 L (80.0-98.0) fL MCH 22.1 L (27.0-33.0) pg MCHC 30.2 L (31.0-35.0) g/dl RDW 14.8 (11.0-16.0) % Plt Count 410 H (160-400) X10*3/uL MPV 9.4 (9.4-12.3) fL Immature Gran % (Auto) 0.3 (0.0-0.4) % Neut % (Auto) 63.3 (45-73) % Lymph % (Auto) 27.2 (20-40) % [place] % (Auto) 6.4 (2-11) % Eos % (Auto) 2.0 (0-4) % Baso % (Auto) 0.8 (0-2) % Lymph # (Auto) 2.5 (1.2-4.9) X10*3/uL [place] # (Auto) 0.6 (0.1-1.2) X10*3/uL Eos # (Auto) 0.2 (0.0-0.4) X10*3/uL Baso # (Auto) 0.1 (0.0-0.2) X10*3/uL Abs Immat Gran (auto) 0.03 (0.00-0.03) X10*3/uL Absolute Neuts (auto) 5.8 (2.0-8.3) x10*3/uL Absolute Nucleated RBC 0.000 (0.0-0.012) X10*3/uL Nucleated RBC % (auto) 0.0 (0.0-0.2) /100WBC Sodium 138 (135-145) mmol/L Potassium 4.7 (3.3-5.1) mmol/L Chloride 105 (96-108) mmol/L Carbon Dioxide 20 L (22-29) mmol/L Anion Gap 18 (12-20) BUN 27 H (9-16) mg/dL Creatinine 1.06 (0.5-1.4) mg/dL Estim Creat Clear Calc 43.1 Estimated GFR 51 Random Glucose 155 H (60-115) mg/dL Calcium 9.9 (8.4-10.2) mg/dL Magnesium 1.6 (1.6-2.6) mg/dL Total Bilirubin 0.3 (0.0-1.0) mg/dL AST 22 (5-31) U/L ALT 21 (0-31) U/L Alkaline Phosphatase 74 (39-117) U/L Troponin I High Sens < 3.5 (<3.5-17.0) ng/L B-Natriuretic Peptide (<100) pg/mL Total Protein 7.5 (6.5-8.0) g/dL Albumin 4.3 (3.5-5.0) g/dL Influenza Type A (PCR) (Negative) Influenza Type B (PCR) (Negative) RSV RNA Qual (PCR) (Negative) SARS-CoV-2 RNA (RT-PCR) (Negative) 02/23/22 02/23/22 Range/Units 12:05 12:07 WBC (4.8-10.8) X10*3/uL RBC (4.20-5.50) X10*6/uL Hgb (12.0-16.0) g/dl Hct (37.0-47.0) % MCV (80.0-98.0) fL MCH (27.0-33.0) pg MCHC (31.0-35.0) g/dl RDW (11.0-16.0) % Plt Count (160-400) X10*3/uL MPV (9.4-12.3) fL Immature Gran % (Auto) (0.0-0.4) % Neut % (Auto) (45-73) % Lymph % (Auto) (20-40) % [place] % (Auto) (2-11) % Eos % (Auto) (0-4) % Baso % (Auto) (0-2) % Lymph # (Auto) (1.2-4.9) X10*3/uL [place] # (Auto) (0.1-1.2) X10*3/uL Eos # (Auto) (0.0-0.4) X10*3/uL Baso # (Auto) (0.0-0.2) X10*3/uL Abs Immat Gran (auto) (0.00-0.03) X10*3/uL Absolute Neuts (auto) (2.0-8.3) x10*3/uL Absolute Nucleated RBC (0.0-0.012) X10*3/uL Nucleated RBC % (auto) (0.0-0.2) /100WBC Sodium (135-145) mmol/L Potassium (3.3-5.1) mmol/L Chloride (96-108) mmol/L Carbon Dioxide (22-29) mmol/L Anion Gap (12-20) BUN (9-16) mg/dL Creatinine (0.5-1.4) mg/dL Estim Creat Clear Calc Estimated GFR Random Glucose (60-115) mg/dL Calcium (8.4-10.2) mg/dL Magnesium (1.6-2.6) mg/dL Total Bilirubin (0.0-1.0) mg/dL AST (5-31) U/L ALT (0-31) U/L Alkaline Phosphatase (39-117) U/L Troponin I High Sens (<3.5-17.0) ng/L B-Natriuretic Peptide 27 (<100) pg/mL Total Protein (6.5-8.0) g/dL Albumin (3.5-5.0) g/dL Influenza Type A (PCR) NEGATIVE (Negative) Influenza Type B (PCR) NEGATIVE (Negative) RSV RNA Qual (PCR) NEGATIVE (Negative) SARS-CoV-2 RNA (RT-PCR) NEGATIVE (Negative) <BASSAM Valdez - Last Filed: 02/23/22 11:41> Lab Results 02/23/22 02/23/22 02/23/22 Range/Units 12:05 12:05 12:05 WBC 9.2 (4.8-10.8) X10*3/uL RBC 5.07 (4.20-5.50) X10*6/uL Hgb 11.2 L (12.0-16.0) g/dl Hct 37.1 (37.0-47.0) % MCV 73.2 L (80.0-98.0) fL MCH 22.1 L (27.0-33.0) pg MCHC 30.2 L (31.0-35.0) g/dl RDW 14.8 (11.0-16.0) % Plt Count 410 H (160-400) X10*3/uL MPV 9.4 (9.4-12.3) fL Immature Gran % (Auto) 0.3 (0.0-0.4) % Neut % (Auto) 63.3 (45-73) % Lymph % (Auto) 27.2 (20-40) % [place] % (Auto) 6.4 (2-11) % Eos % (Auto) 2.0 (0-4) % Baso % (Auto) 0.8 (0-2) % Lymph # (Auto) 2.5 (1.2-4.9) X10*3/uL [place] # (Auto) 0.6 (0.1-1.2) X10*3/uL Eos # (Auto) 0.2 (0.0-0.4) X10*3/uL Baso # (Auto) 0.1 (0.0-0.2) X10*3/uL Abs Immat Gran (auto) 0.03 (0.00-0.03) X10*3/uL Absolute Neuts (auto) 5.8 (2.0-8.3) x10*3/uL Absolute Nucleated RBC 0.000 (0.0-0.012) X10*3/uL Nucleated RBC % (auto) 0.0 (0.0-0.2) /100WBC Sodium 138 (135-145) mmol/L Potassium 4.7 (3.3-5.1) mmol/L Chloride 105 (96-108) mmol/L Carbon Dioxide 20 L (22-29) mmol/L Anion Gap 18 (12-20) BUN 27 H (9-16) mg/dL Creatinine 1.06 (0.5-1.4) mg/dL Estim Creat Clear Calc 43.1 Estimated GFR 51 Random Glucose 155 H (60-115) mg/dL Calcium 9.9 (8.4-10.2) mg/dL Magnesium 1.6 (1.6-2.6) mg/dL Total Bilirubin 0.3 (0.0-1.0) mg/dL AST 22 (5-31) U/L ALT 21 (0-31) U/L Alkaline Phosphatase 74 (39-117) U/L Troponin I High Sens < 3.5 (<3.5-17.0) ng/L B-Natriuretic Peptide (<100) pg/mL Total Protein 7.5 (6.5-8.0) g/dL Albumin 4.3 (3.5-5.0) g/dL Influenza Type A (PCR) (Negative) Influenza Type B (PCR) (Negative) RSV RNA Qual (PCR) (Negative) SARS-CoV-2 RNA (RT-PCR) (Negative) 02/23/22 02/23/22 Range/Units 12:05 12:07 WBC (4.8-10.8) X10*3/uL RBC (4.20-5.50) X10*6/uL Hgb (12.0-16.0) g/dl Hct (37.0-47.0) % MCV (80.0-98.0) fL MCH (27.0-33.0) pg MCHC (31.0-35.0) g/dl RDW (11.0-16.0) % Plt Count (160-400) X10*3/uL MPV (9.4-12.3) fL Immature Gran % (Auto) (0.0-0.4) % Neut % (Auto) (45-73) % Lymph % (Auto) (20-40) % [place] % (Auto) (2-11) % Eos % (Auto) (0-4) % Baso % (Auto) (0-2) % Lymph # (Auto) (1.2-4.9) X10*3/uL [place] # (Auto) (0.1-1.2) X10*3/uL Eos # (Auto) (0.0-0.4) X10*3/uL Baso # (Auto) (0.0-0.2) X10*3/uL Abs Immat Gran (auto) (0.00-0.03) X10*3/uL Absolute Neuts (auto) (2.0-8.3) x10*3/uL Absolute Nucleated RBC (0.0-0.012) X10*3/uL Nucleated RBC % (auto) (0.0-0.2) /100WBC Sodium (135-145) mmol/L Potassium (3.3-5.1) mmol/L Chloride (96-108) mmol/L Carbon Dioxide (22-29) mmol/L Anion Gap (12-20) BUN (9-16) mg/dL Creatinine (0.5-1.4) mg/dL Estim Creat Clear Calc Estimated GFR Random Glucose (60-115) mg/dL Calcium (8.4-10.2) mg/dL Magnesium (1.6-2.6) mg/dL Total Bilirubin (0.0-1.0) mg/dL AST (5-31) U/L ALT (0-31) U/L Alkaline Phosphatase (39-117) U/L Troponin I High Sens (<3.5-17.0) ng/L B-Natriuretic Peptide 27 (<100) pg/mL Total Protein (6.5-8.0) g/dL Albumin (3.5-5.0) g/dL Influenza Type A (PCR) NEGATIVE (Negative) Influenza Type B (PCR) NEGATIVE (Negative) RSV RNA Qual (PCR) NEGATIVE (Negative) SARS-CoV-2 RNA (RT-PCR) NEGATIVE (Negative) <BASSAM Howard - Last Filed: 02/23/22 13:14> Independent Interpretation I performed an independent interpretation of an: EKG <BASSAM Howard Last Filed: 02/23/22 13:14> Interpretation: Interpretation: EKG normal sinus rhythm at a rate of 90. RI interval 164. QTC 467. No significant change when compared to priors <BASSAM Howard - Last Filed: 02/23/22 13:14> External Record Review External record reviewed: Outpatient record and Prior outpatient labs <BASSAM Howard Last Filed: 02/23/22 13:14> Discharge Plan Discharge Clinical Impression: Arm pain, left <BASSAM Valdez - Last Filed: 02/23/22 11:41> Patient Disposition: Home, Self-Care <BASSAM Valdez - Last Filed: 02/23/22 11:41> Instructions: Arm Pain (ED) <BASSAM Valdez Last Filed: 02/23/22 11:41> Additional Instructions: Your EKG and blood work was reassuring. Her heart enzyme was negative Rest. Stay hydrated. Take Tylenol as needed. Lidoderm patches are numbing patches, apply to painful area Use heat or ice Please have close follow-up with her doctor If symptoms persist or worsen, change, he developed chest pain or shortness of breath return to the emergency department <BASSAM Valdez Last Filed: 02/23/22 11:41> Prescriptions: New acetaminophen [Tylenol Extra Strength] 500 mg tablet 500 mg PO Q6H PRN (Reason: fever or pain) Qty: 14 0RF lidocaine [Lidoderm] 5 % adhesive patch,medicated 1 patch topical DAILY MDD remove after 12 hours PRN (Reason: pain) Qty: 30 0RF Rx Instructions: leave on most painful area for up to 12 hrs No Action nystatin-triamcinolone 100,000-0.1 unit/gram-% ointment 1 appl topical DAILY Qty: 30 0RF (DME) FreeStyle Lite Strips Strip See Rx Instructions .ROUTE .MEDSUPPLY Qty: 120 11RF Rx Instructions: As directed four times a day insulin aspart U-100 [Novolog FlexPen U-100 Insulin] 100 unit/mL (3 mL) insulin pen 10 unit subcut TID 30 Days Qty: 9 11RF (DME) pen needle, diabetic 32 gauge x 5/32 needle See Rx Instructions subcut DAILY Qty: 100 11RF Rx Instructions: As directed losartan 100 mg tablet 100 mg PO DAILY Qty: 90 2RF atorvastatin 80 mg tablet 80 mg PO BEDTIME 30 Days Qty: 30 11RF eszopiclone [Lunesta] 1 mg tablet 1 mg PO BEDTIME Qty: 30 2RF Levemir FlexTouch U-100 Insuln 100 unit/mL (3 mL) insulin pen 30 unit subcut DAILY Qty: 30 2RF Rx Instructions: or as directed amlodipine 5 mg tablet 5 mg PO DAILY gabapentin 100 mg capsule 200 mg PO BEDTIME 90 Days Qty: 180 2RF (DME) FreeStyle Lyndsay 14 Day [place] Misc See Rx Instructions .ROUTE .MEDSUPPLY Qty: 1 0RF Rx Instructions: As directed (DME) FreeStyle [place] 14 Day Sensor Kit See Rx Instructions .ROUTE .MEDSUPPLY Qty: 6 3RF Rx Instructions: As directed (DME) OneTouch Ultra Test Strip See Rx Instructions .Route Qty: 100 11RF Rx Instructions: 4x daily metformin 1,000 mg tablet 1,000 mg PO BID <BASSAM Valdez - Last Filed: 02/23/22 11:41> Referrals: Po,Ailyn Haney MD [Primary Care Provider] - 1 week <BASSAM Valdez - Last Filed: 02/23/22 11:41>
[2022-02-23 11:39] VITALS: BP 144/74; PULSE 97; RESP 18; TEMP 36.6; O2SAT 97; BMI 28.5
--- NOTE | 2022-02-23 11:44 | ECG_ITS ---
Test Reason : cp, radiating pain Blood Pressure : / mmHG Vent. Rate : 090 BPM Atrial Rate : 090 BPM P-R Int : 164 ms QRS Dur : 068 ms QT Int : 382 ms P-R-T Axes : 039 -02 049 degrees QTc Int : 467 ms Normal sinus rhythm Normal ECG When compared with ECG of 19-JUL-2006 08:38, No significant change was found Referred By: Luz Barajas Electronically Signed By:COBY HANSON
[2022-02-23 12:13] LABS: MANUAL DIFF FLAG NO
[2022-02-23 12:16] LABS: Basophils Absolute Auto 0.1 X10*3/uL (0.0-0.2); Basophils Percent Auto 0.8 % (0-2); Eosinophils Absolute Auto 0.2 X10*3/uL (0.0-0.4); Hematocrit 37.1 % (37.0-47.0); Hemoglobin 11.2 g/dl (12.0-16.0); Imm Gran Abs Auto 0.03 X10*3/uL (0.00-0.03); Imm Gran Pct Auto 0.3 % (0.0-0.4); Lymphocytes Absolute Auto 2.5 X10*3/uL (1.2-4.9); Lymphocytes Percent Auto 27.2 % (20-40); Mean Corpuscular HGB Conc 30.2 g/dl (31.0-35.0); Mean Corpuscular Hemoglobin 22.1 pg (27.0-33.0); Mean Corpuscular Volume 73.2 fL (80.0-98.0); Mean Platelet Volume 9.4 fL (9.4-12.3); Monocytes Absolute Auto 0.6 X10*3/uL (0.1-1.2); Monocytes Percent Auto 6.4 % (2-11); Neutrophils Absolute Auto 5.8 x10*3/uL (2.0-8.3); Neutrophils Percent Auto 63.3 % (45-73); Platelet Count 410 X10*3/uL (160-400); Red Blood Count 5.07 X10*6/uL (4.20-5.50); Red Cell Distribution Width 14.8 % (11.0-16.0); White Blood Count 9.2 X10*3/uL (4.8-10.8)
[2022-02-23 12:31] LABS: Alanine Aminotransferase 21 U/L (0-31); Albumin Level 4.3 g/dL (3.5-5.0); Alkaline Phosphatase 74 U/L (39-117); Anion Gap 18 (12-20); Aspartate Amino Transferase 22 U/L (5-31); Bilirubin Total 0.3 mg/dL (0.0-1.0); Blood Urea Nitrogen 27 mg/dL (9-16); Calcium 9.9 mg/dL (8.4-10.2); Carbon Dioxide 20 mmol/L (22-29); Chloride 105 mmol/L (96-108); Creatinine Clr Calc Pharmacy 43.1; Estimated Glomerular Filt Rate 51; Glucose Random 155 mg/dL (60-115); Magnesium 1.6 mg/dL (1.6-2.6); Potassium 4.7 mmol/L (3.3-5.1); Sodium 138 mmol/L (135-145); Total Protein 7.5 g/dL (6.5-8.0)
[2022-02-23 12:37] LABS: B Type Natriuretic Peptide 27 pg/mL (<100)
[2022-02-23 12:38] LABS: Troponin-I High Sensitivity < 3.5 ng/L (<3.5-17.0)
[2022-02-23 12:51] LABS: Influenza A PCR NEGATIVE (Negative); Influenza B PCR NEGATIVE (Negative); Resp Syncy Virus RNA Qual PCR NEGATIVE (Negative); SARS COV2 PCR INHOUSE NEGATIVE (Negative)
== END 2022-02-23 13:25 | disposition home or self-care (01) ==
PROVIDERS: Physician Assistant Medical; Emergency Provider Emergency Medicine Emergency Medical Services; PCP Internal Medicine
DX: M79.602 Pain in left arm (principal); E11.22 Type 2 diabetes mellitus with diabetic chronic kidney disease; I12.9 Hypertensive chronic kidney disease with stage 1 through stage 4 chronic kidney disease, or unspecified chronic kidney disease; N18.9 Chronic kidney disease, unspecified; E78.5 Hyperlipidemia, unspecified; Z20.822 Contact with and (suspected) exposure to COVID-19; Z20.828 Contact with and (suspected) exposure to other viral communicable diseases; Z79.4 Long term (current) use of insulin; Z79.02 Long term (current) use of antithrombotics/antiplatelets; Z79.899 Other long term (current) drug therapy
CPT/HCPCS: 0241U; 36415; 80053; 83735; 83880; 84484; 85025; 93005; 99282; 99283

== ENCOUNTER 2022-03-27 08:06 | Outpatient (REF) | payer MEDICARE, OTHER, SELFPAY ==
[2022-03-27 08:57] LABS: Appearance Urine Clear; Color Urine Yellow; Glucose Urine UA Negative (Negative); Leukocyte Esterase Urine Small (1+) (Negative); Nitrite Urine Negative (Negative); PH 5.5 (5.0-9.0); Specific Gravity - Urine <= 1.005 (1.005-1.025); UMIC TRIGGER UACC YES; Urine Blood Trace (Negative); Urine Ketones Negative (Negative); Urine Protein Negative (Neg-Trace)
[2022-03-27 09:00] LABS: Bacteria Urine None Seen (None Seen); Hyaline Casts Urine 0-2 /LPF (0-2); RBC Urine 0-2 /HPF (0-2); UACC Culture Trigger YES
[2022-03-27 09:00] LABS: Immature Retic Fraction 14.4 % (3.0-15.9); Retic HGB Equivalent 21.8 pg (30.0-35.0); Reticulocyte Percent 1.3 % (0.5-1.8); Reticulocytes Absolute 0.064 X10*6/uL (0.026-0.095)
[2022-03-27 09:30] LABS: Alanine Aminotransferase 22 U/L (0-31); Albumin Level 4.2 g/dL (3.5-5.0); Alkaline Phosphatase 67 U/L (39-117); Anion Gap 19 (12-20); Aspartate Amino Transferase 21 U/L (5-31); Bilirubin Total 0.4 mg/dL (0.0-1.0); Blood Urea Nitrogen 25 mg/dL (9-16); Calcium 9.9 mg/dL (8.4-10.2); Carbon Dioxide 21 mmol/L (22-29); Chloride 104 mmol/L (96-108); Cholesterol 207 mg/dL; Estimated Glomerular Filt Rate 52; Glucose Random 181 mg/dL (60-115); HDL Cholesterol 57 mg/dL; Iron 35 mcg/dL (30-160); LDL Cholesterol Calculated 127 mg/dl; Percent Iron Saturation 9 % (15-50); Potassium 4.7 mmol/L (3.3-5.1); Sodium 139 mmol/L (135-145); Total Iron Binding Capacity 391 mcg/dL (228-428); Total Protein 7.3 g/dL (6.5-8.0); Triglycerides 119 mg/dL; Unsaturated Iron Binding 356 ug/dL
[2022-03-27 10:01] LABS: Ferritin 8 ng/mL (10-250); Free T4 (Free Thyroxine) 1.09 ng/dL (0.71-1.85); Thyroid Stimulating Hormone 1.29 uIU/mL (0.32-4.0)
== END 2022-03-27 08:07 | disposition home or self-care (01) ==
LOC: HO.LAB 08:06
PROVIDERS: PCP Internal Medicine; Visit Provider Internal Medicine
DX: E78.00 Pure hypercholesterolemia, unspecified (principal); N39.0 Urinary tract infection, site not specified
CPT/HCPCS: 36415; 80053; 80061; 81001; 82728; 83540; 84439; 84443; 85045; 87086

== ENCOUNTER 2022-04-22 07:02 | Outpatient (REF) | payer MEDICARE, OTHER, SELFPAY ==
[2022-04-22 07:53] LABS: Appearance Urine Clear; Color Urine Yellow; Glucose Urine UA Negative (Negative); Leukocyte Esterase Urine Small (1+) (Negative); Nitrite Urine Negative (Negative); PH 5.5 (5.0-9.0); UMIC TRIGGER UACC YES; Urine Blood Negative (Negative); Urine Ketones Trace mg/dL (Negative); Urine Protein Negative (Neg-Trace)
[2022-04-22 08:08] LABS: Bacteria Urine None Seen (None Seen); Hyaline Casts Urine 0-2 /LPF (0-2); Squamous Epithelial Cell Urine 0-2 /HPF (0-2); UACC Culture Trigger YES; WBC Urine 0-5 /HPF (0-5)
== END 2022-04-22 07:03 | disposition home or self-care (01) ==
LOC: HO.LAB 07:02
PROVIDERS: PCP Internal Medicine; Visit Provider Internal Medicine
DX: N18.9 Chronic kidney disease, unspecified (principal); R82.90 Unspecified abnormal findings in urine
CPT/HCPCS: 81001; 87086

== ENCOUNTER 2022-07-30 13:12 | Outpatient (REF) | payer MEDICARE, OTHER, SELFPAY ==
--- NOTE | ~2022-07-30 | MM_ITS ---
EXAMINATION: BONE DENSITOMETRY CLINICAL INDICATION: Osteoporosis. COMPARISON: Previous BD dated 04/13/2020 and baseline BD dated 06/12/2018. TECHNIQUE: Using a [employer] DXA System (software version: 13.1) manufactured by [employer], dual-energy x-ray absorptiometry was performed of the lumbar spine, left hip, and left forearm radius 33%. The images are of good technical quality. Summary results are attached. FINDINGS: AP SPINE L1-L2 (excluding L3 and L4): The data of L1-L4 has been changed to exclude the L3 and L4 vertebral bodies, because hardware at these levels may cause overestimation of lumbar spine density. Current: BMD 0.771 g/cm2, Z-score -1.5, T-score -3.3, osteoporosis, 14.6% increase from previous, 3.1% decrease from baseline (<5% change is not significant). Prior: BMD 0.673 g/cm2. Baseline: BMD 0.796 g/cm2. LEFT FEMUR, NECK: Current: BMD 0.652 g/cm2, Z-score -1.0, T-score -2.8, osteoporosis. Prior: BMD 0.641 g/cm2. Baseline: BMD 0.716 g/cm2. LEFT FEMUR, TOTAL: Current: BMD 0.641 g/cm2, Z-score -1.3, T-score -2.9, osteoporosis, 1.6% increase from previous, 11.8% decrease from baseline (<5% change is not significant). Prior: BMD 0.631 g/cm2. Baseline: BMD 0.727 g/cm2. LEFT FOREARM RADIUS 33%: BMD 0.517 g/cm2, Z-score -2.1, T-score -4.1, osteoporosis. Prior: Not previously measured. IDENTIFIED RISK FACTORS: Early menopause, history of fracture (adult), hysterectomy, left oophorectomy, osteoporosis, secondary osteoporosis. HISTORY OF FRACTURE: Knee. MEDICATIONS: Multivitamin. MM/XR DEXA axial skeleton IMPRESSION: 1. DIAGNOSIS: Osteoporosis based on the lowest T-score value of -4.1 in the forearm radius 33% applying World Health Organization criteria. 2. 10-YEAR FRACTURE RISK PREDICTION, FRAX: According to the guidelines, FRAX calculation should only be performed on patients in the osteopenia bone density category. Therefore, FRAX was not performed on this patient. 3. Treatment Recommendations: NOF guidelines recommend consideration for treatment in postmenopausal women and men age 50 and older presenting with the following: -A hip or vertebral (clinical or morphometric) fracture. -T-score less than or equal to -2.5 at the femoral neck or spine after appropriate evaluation to exclude secondary causes. -Low bone mass at the hip or spine and a 10-year fracture probability by FRAX of greater than or equal to 3% for hip fracture or greater than or equal to 20% for major osteoporotic fracture based on the [place] adapted WHO algorithm. 4. Other Recommendations: All treatment decisions require clinical judgment and consideration of individual patient factors, including patient preferences, comorbidities, previous drug use, risk factors not captured in the FRAX model (e.g. frailty, falls, vitamin D deficiency, increased bone turnover, interval significant decline in bone density) and possible under or overestimation of fracture risk by FRAX. Additional medical evaluation for secondary cause of low bone mineral density may be appropriate. FUTURE SCAN RECOMMENDATION: People with diagnosed cases of osteoporosis or at high risk for fracture should have regular bone mineral density tests. For patients eligible for Medicare, routine testing is allowed once every 2 years. The testing frequency can be increased to one year for patients who have rapidly progressing disease, those who are receiving or discontinuing medical therapy to restore bone mass, or have additional risk factors.
== END 2022-07-30 13:13 | disposition home or self-care (01) ==
LOC: HO.MAMMO 13:12
PROVIDERS: PCP Internal Medicine; Visit Provider Internal Medicine
DX: Z13.820 Encounter for screening for osteoporosis (principal); Z78.0 Asymptomatic menopausal state; M81.0 Age-related osteoporosis without current pathological fracture
CPT/HCPCS: 77080

== ENCOUNTER 2022-08-15 10:44 | Outpatient (REF) | payer MEDICARE, OTHER, SELFPAY ==
--- NOTE | 2022-08-15 11:22 | PM.OP ---
Brief Operative Note Date of Service: 08/15/22 Pre-op diagnosis: Multinodular Thyroid Procedure: This is doctor Cadence Rajan. This is an ultrasound-guided fine-needle aspiration report. Indication: Multinodular Thyroid Porcedure: Procedure was explained to the patient. Alternatives, the risk and benefits were discussed. Written consent was obtained. A time-out was also obtained. After sterile preparation, 1 ml of 1% lidocaine solution was applied subcutaneously for anesthetic effect. Then Fine-needle aspiration of a left mid pole 1.7 cm thyroid nodule was performed using direct ultrasound guidance to confirm accurate needle placement. Four aspirations were made using 27 gauge needles. Samples were submitted for cytology. One pass was dedicated for [employer] sequencing library cataloging technician testing. The patient tolerated the procedure well. Aftercare instructions were provided. Impression: Uncomplicated fine needle aspiration biopsy of a left mid pole 1.7 cm thyroid nodule under ultrasound guidance. Surgeon: Cadence Rajan, DO Was an Specialty Sales Representative used for this Procedure?: No Estimated blood loss (mL): 0
[2022-08-15] MEDS: Lidocaine HCl 1 % MPF 5 ML VIAL SUBCUT (11:45)
== END 2022-08-15 10:45 | disposition home or self-care (01) ==
LOC: HO.US 10:44
PROVIDERS: Visit Provider Internal Medicine
DX: E04.1 Nontoxic single thyroid nodule (principal)
CPT/HCPCS: 10005; 88172; 88173

== ENCOUNTER 2022-08-28 07:57 | Outpatient (AMB) | payer MEDICARE, OTHER, SELFPAY ==
--- NOTE | 2022-08-28 07:57 | A.OFFVIS_ITS ---
Intake Intake Visit Reasons: dm Allergies dulaglutide [From Trulicity] Adverse Reaction (Intermediate, Verified 08/28/22 09:03) nausea glipizide Adverse Reaction (Intermediate, Verified 08/28/22 09:03) patient Medication List - Last Reconciled 08/28/22 by Cadence Rajan DO acetaminophen (Tylenol Extra Strength) 500 mg PO Q6H PRN amlodipine 5 mg PO DAILY 90 days atorvastatin 80 mg PO BEDTIME 30 days blood sugar diagnostic (FreeStyle Lite Strips) As directed four times a day blood sugar diagnostic (OneTouch Ultra Test strips) 4x daily denosumab 60 mg subcut [id number] eszopiclone (Lunesta) 1 mg PO BEDTIME flash glucose scanning reader (365webcallStyle Lyndsay 14 Day Commerce) As directed flash glucose sensor (FreeStyle Lyndsay 14 Day Sensor kit) As directed gabapentin 200 mg (2 x 100 mg) PO BEDTIME 90 days insulin detemir U-100 (Levemir FlexTouch U-100 Insulin) 30 units (0.3 mL) subcut DAILY insulin lispro (Humalog KwikPen (U-100) Insulin) 10 units (0.1 mL) subcut TID 30 days lidocaine 5% (Lidoderm) 1 patch topical DAILY PRN MDD remove after 12 hours losartan 100 mg PO DAILY metformin 1,000 mg PO BID 90 days pen needle, diabetic As directed HPI HPI Comments History of Present Illness Details 71 YO F with PMHx T2DM who is seen in F/U for T2DM, Osteoporosis and a NTMNG. Diabetes will not be addressed today. Of note, the patient is somewhat of a poor historian. Additional history was provided by her Son who is a plastic surgeon in [facility]. 1) T2DM: Initially diagnosed with T2DM in 1999. Was initially started on treatment with Metformin. She started using Insulin in 2016. Current regimen Metformin 1000 mg PO BID and Levemir 30 units daily and Humalog 5 units AC. She has failed treatment with Trulicity as well as Glipizide. She was unable to tolerate the Trulicity due to GI distress. She was intolerant to Jardiance due to recurrent vaginal yeast infection. Uses Freestyle Lyndsay CGM. Unable to download her sensor today. Reports low sugars when she does not eat. Is aware of the rule of 15's to treat. No low sugars since her last visit. Treats lows with juice. Checks sugar after to ensure it is rising. Most recent A1C: 7.6% 02/07/2022, DOWN FROM 10.1% 06/27/2021, down from 11.1% 04/19/2020, up from 9.5% 11/23/2019. Family history of T2DM in her Mother. Has eyes checked yearly, last eye exam mid 2021, denies retinopathy. Has neuropathy. Is on Gabapentin. Has nephropathy, on Losartan 100 mg PO daily. UAC 27.4 01/06/2021. Has HLD, on Atorvastatin 40 mg PO daily. Last LDL 134 06/27/2021. Denies CAD. Diet: Does not follow any particular diet. Weight: Has lost 40 lbs in the past year. Had diabetes education. 2) Osteoporosis: She has a longstanding history of hypercalcemia. She also has a long standing history of Osteoporosis of her spine and hip. She appears to have failed treatment with Fosamax. BMD has acutely worsened over the past 2 years. After our initial visit we completed a full workup for secondary causes of Osteoporosis. SPEP revealed possible elevated M protein. She was referred to Heme-Onc and had additional testing. This was thought to represent MGUS. She continues to follow with Heme-Onc. First diagnosed in her late 50's. Received treatment in the past with Fosamax for 5 years, but stopped this around the age of 65. Tolerated treatment well without complication. No history of pathologic fracture or ONJ. Has 0 servings of dietary calcium. Does not take Calcium. Takes 5000 IU of Vitamin D daily. Fracture history: Did have a fracture of her leg. This was a fragility fracture. She had a hysterectomy in her mid 40's and never had symptoms of menopause after. History of Kidney stones: Denies Family history of Osteoporosis in her Mother. UTD on dental cleanings and sees dentist every 6 months. No planned upcoming dental work or extractions. We discussed Prolia and she was initially agreeable to this, but then changed her mind and refused treatment. Also has a NTMNG. She underwent FNA biopsy 08/15/2022 of her left mid pole 1.7 cm thyroid nodule with benign (bethesda category II) cytology. Thyroid US: 04/18/2020 Right Thyroid Lobe: 4.5 x 1.8 x 1.5 cm, volume 6.4 mL. Parenchyma: The gland echotexture is heterogeneous. Thyroid vascularity is normal. Left Thyroid Lobe: 4.8 x 1.9 x 1.3 cm, volume 6.2 mL. Parenchyma: The gland echotexture is heterogeneous. Thyroid vascularity is normal. Isthmus: 0.5 cm in maximum AP dimension. Estimated total number of nodules greater than or equal to 1 cm: 3. Medical Doctor Md/Medical Director nodules are described as follows: 1. Location: Right mid. Size: 1.0 x 0.8 x 0.9 cm, volume 4 mL. Nodule characteristics: Composition: Solid (2). Echogenicity: Hypoechoic (2). Shape: Not taller than wide (0). Margins: Smooth (0). Echogenic Foci: Punctate echogenic foci (3). ACR TI-RADS total points: 7 ACR TI-RADS category: 5 2. Location: Right mid. Size: 1.0 x 0.8 x 0.8 cm, volume 0.3 mL. Nodule characteristics: Composition: Solid (2). Echogenicity: Hyperechoic (1). Shape: Not taller than wide (0). Margins: Ill-defined (0). Echogenic Foci: None (0). ACR TI-RADS total points: 3 ACR TI-RADS category: 3 3. Location: Left inferior. Size: 1.3 x 1.2 x 1.7 cm, volume 1.4 mL. Nodule characteristics: Composition: Solid (2). Echogenicity: Hyperechoic (1). Shape: Not taller than wide (0). Margins: Smooth (0). Echogenic Foci: None (0). ACR TI-RADS total points: 3 ACR TI-RADS category: 3 NODES: No lymphadenopathy is seen in the tissue surrounding the thyroid gland. DXA: 07/30/2022 FINDINGS: AP SPINE L1-L2 (excluding L3 and L4): The data of L1-L4 has been changed to exclude the L3 and L4 vertebral bodies, because hardware at these levels may cause overestimation of lumbar spine density. Current: BMD 0.771 g/cm2, Z-score -1.5, T-score -3.3, osteoporosis, 14.6% increase from previous, 3.1% decrease from baseline (<5% change is not significant). Prior: BMD 0.673 g/cm2. Baseline: BMD 0.796 g/cm2. LEFT FEMUR, NECK: Current: BMD 0.652 g/cm2, Z-score -1.0, T-score -2.8, osteoporosis. Prior: BMD 0.641 g/cm2. Baseline: BMD 0.716 g/cm2. LEFT FEMUR, TOTAL: Current: BMD 0.641 g/cm2, Z-score -1.3, T-score -2.9, osteoporosis, 1.6% increase from previous, 11.8% decrease from baseline (<5% change is not significant). Prior: BMD 0.631 g/cm2. Baseline: BMD 0.727 g/cm2. LEFT FOREARM RADIUS 33%: BMD 0.517 g/cm2, Z-score -2.1, T-score -4.1, osteoporosis. Prior:? Not previously measured. Labs: Laboratory Tests 03/27/22 08:20 Creatinine 1.05 Estimated GFR 52 PFSH Medical History Abnormal SPEP CKD (chronic kidney disease) Common bile duct dilatation Esophageal hernia GERD (gastroesophageal reflux disease) H. pylori duodenitis Hypercholesterolemia Hypertension Insomnia Osteoporosis Thyroid nodule Tubular adenoma of colon Type 2 diabetes mellitus with hyperglycemia Vitamin D deficiency Surgical History H/O: hysterectomy History of back surgery History of partial hysterectomy S/P epidural steroid injection Status post lumbar spine surgery for decompression of spinal cord Family History Father No problems noted. Mother Diabetes Social History Housing: House Are you a primary wound care nurse to a significant other at home: No Alcohol intake: never Patient Tobacco Use Status: Never used Tobacco e-Cigarette/Vaping Use: Never Used Second Hand Smoke Exposure: No service: No Current occupational status: retired Cognitive needs: No Hearing needs: No Vision needs: Yes (Glasses) Assessment & Plan Assessment & Plan (1) Thyroid nodule: Code(s): E04.1 - Nontoxic single thyroid nodule Plan: She underwent FNA biopsy of her left mid pole 1.7 cm thyroid nodule 08/15/2022 with benign cytology. She will be due for a repeat surveillance US in 1 years time. I spent 20 minutes in reviewing the record, seeing the patient and documenting in the medical record, including 5 minutes on the phone with the Patient. (2) Vitamin D deficiency: Code(s): E55.9 - Vitamin D deficiency, unspecified Plan: Vitamin D levels were elevated in the past. Will repeat levels now and adjust her supplement as indicated. (3) Osteoporosis: Code(s): M81.0 - Age-related osteoporosis without current pathological fracture Plan: Patient with severe osteoporosis of the spine and osteoporosis of the hip. She has had a significant decline in the past 2 years both at the spine and the hip. I am very concerned for multiple myeloma given the possible M protein on her SPEP and the elevated kappa light chains. She does have MGUS and is following with Heme-Onc for this. She failed oral bisphosphonates. Given her CKD IV Reclast is not a good option for her. Given her elevated lipids, poorly controlled Diabetes and elevated risk for CAD, evenity is also not a good option. Prolia remains a viable option for her. Will start Prolia at this time. We discussed potential ADRs of flu like symptoms with body aches, osteonecrosis of the jaw and atypical fracture. All questions were answered. She will be scheduled with my nurse for her first prolia injection. She will then be due 6 months later for her second dose. We discussed the importance of insuring she does not miss any scheduled doses as her fracture risk will in crease. (4) CKD (chronic kidney disease): Code(s): N18.9 - Chronic kidney disease, unspecified Plan: She has CKD Stage 3. She was referred to Nephrology. (5) Abnormal SPEP: Code(s): R77.8 - Other specified abnormalities of plasma proteins Plan: She is following with Heme-Onc for this. Calcium mildly elevated which I suspect is related to her MGUS, which she has been diagnosed with. Medications: Refilled pen needle, diabetic As directed 100 ea 11RF E11.65 - Type 2 diabetes mellitus with hyperglycemia, Z79.4 - prison (current) use of insulin Telehealth Telehealth Location of provider rendering services: practice address Location of patient: address on file Patient Identification confirmed using: Name, : Yes Telehealth method: voice only Patient verbally consented to treatment: Yes Patient verbally consented to billing insurance company: Yes Patient informed of any privacy concerns related to visit: Yes Coding Level of Care Code Tele Est Pt Level 3 (19731) Diagnoses Thyroid nodule E04.1 Vitamin D deficiency E55.9 Osteoporosis M81.0 CKD (chronic kidney disease) N18.9 Abnormal SPEP R77.8
== END 2022-08-28 09:16 | disposition home or self-care (01) ==
LOC: HO.ENCR 07:57
PROVIDERS: Visit Provider Internal Medicine
DX: E04.1 Nontoxic single thyroid nodule (principal); E55.9 Vitamin D deficiency, unspecified; M81.0 Age-related osteoporosis without current pathological fracture; N18.30 Chronic kidney disease, stage 3 unspecified; R77.8 Other specified abnormalities of plasma proteins
CPT/HCPCS: 99443

== ENCOUNTER → 2022-08-28 07:57 | Outpatient (BNVA) | payer MEDICARE, OTHER, SELFPAY | PROVIDERS: Visit Provider Internal Medicine ==

== ENCOUNTER 2022-11-08 07:38 | Outpatient (REF) | payer MEDICARE, OTHER, SELFPAY ==
[2022-11-08 10:52] LABS: Appearance Urine Clear; Color Urine Dark Yellow; Glucose Urine UA Negative (Negative); Leukocyte Esterase Urine Small (1+) (Negative); Nitrite Urine Negative (Negative); PH 5.5 (5.0-9.0); UMIC TRIGGER UACC YES; Urine Blood Negative (Negative); Urine Ketones Trace mg/dL (Negative); Urine Protein Trace mg/dL (Neg-Trace)
[2022-11-08 10:57] LABS: Bacteria Urine None Seen (None Seen); Hyaline Casts Urine 0-2 /LPF (0-2); RBC Urine 0-2 /HPF (0-2); Squamous Epithelial Cell Urine 0-2 /HPF (0-2); UACC Culture Trigger YES
== END 2022-11-08 07:39 | disposition home or self-care (01) ==
LOC: HO.LAB 07:38
PROVIDERS: PCP Internal Medicine; Visit Provider Internal Medicine
DX: R30.0 Dysuria (principal)
CPT/HCPCS: 81001; 87086

== ENCOUNTER 2022-11-12 06:42 | Outpatient (REF) | payer MEDICARE, OTHER, SELFPAY ==
[2022-11-12 07:46] LABS: Estimated Average Glucose 194 mg/dL; Hemoglobin A1c % 8.4 % (<6.0)
[2022-11-12 08:09] LABS: Alanine Aminotransferase 19 U/L (0-31); Albumin Level 4.4 g/dL (3.5-5.0); Alkaline Phosphatase 86 U/L (39-117); Anion Gap 16 (12-20); Aspartate Amino Transferase 19 U/L (5-31); Bilirubin Total 0.3 mg/dL (0.0-1.0); Blood Urea Nitrogen 22 mg/dL (9-16); Calcium 10.4 mg/dL (8.4-10.2); Carbon Dioxide 23 mmol/L (22-29); Chloride 104 mmol/L (96-108); Estimated Glomerular Filt Rate 53; Glucose Random 134 mg/dL (60-115); Phosphorus 3.2 mg/dL (2.7-4.5); Potassium 4.5 mmol/L (3.3-5.1); Sodium 138 mmol/L (135-145); Total Protein 8.4 g/dL (6.5-8.0)
[2022-11-12 08:26] LABS: Vitamin D 25-OH Total 60.3 ng/mL (>30)
[2022-11-14 16:19] LABS: Calcium (PTHI) 10.1 mg/dL (8.6-10.4); PTHI 43 pg/mL (16-77)
== END 2022-11-12 06:43 | disposition home or self-care (01) ==
LOC: HO.LAB 06:42
PROVIDERS: Absent Provider Surgery Plastic and Reconstructive Surgery; PCP Internal Medicine; Visit Provider Internal Medicine
DX: M81.0 Age-related osteoporosis without current pathological fracture (principal); E55.9 Vitamin D deficiency, unspecified; E11.65 Type 2 diabetes mellitus with hyperglycemia; Z79.4 Long term (current) use of insulin
CPT/HCPCS: 36415; 80053; 82306; 83036; 83970; 84100

== ENCOUNTER 2022-11-20 14:50 | Outpatient (AMB) | payer MEDICARE, OTHER, SELFPAY ==
--- NOTE | 2022-11-20 14:58 | MHC.OFFVIS ---
Intake Vital Signs 11/20/22 15:04 Height 5 ft 1 in Weight 151 lb 0.266 oz BMI 28.5 BP 144/68 H Blood Pressure Location Rt brachial Position Sitting Pulse 109 H Pulse Source Pulse Oximeter Intake Visit Reasons: DM/Osteoporosis/LVM Intake Note: New patient to Dr. Brooks present for T2DM and Osteoporosis follow up visit. Previously followed by Dr. De. Patient receives DME through: [facility] Last Diabetic Eye exam: approx 3 months Last Podiatry Visit: Does not see a Deicer Finisher, pt requesting referral. Random Glucose: 167 mg/dl HgA1C: 8.4% 11/12/22 Steel Detailer Required: No Accompanied by: Self / Same As Patient Allergies dulaglutide [From Trulicity] Adverse Reaction (Intermediate, Verified 11/20/22 15:06) nausea glipizide Adverse Reaction (Intermediate, Verified 11/20/22 15:06) patient HPI HPI Comments History of Present Illness Details 72 YO F with PMHx T2DM who is seen in F/U for T2DM, Osteoporosis and a NTMNG. Diabetes will not be addressed today. Of note, the patient is somewhat of a poor historian. Additional history was provided by her Son who is a plastic surgeon in [facility]. 1) T2DM: Initially diagnosed with T2DM in 2000. Was initially started on treatment with Metformin. She started using Insulin in 2016. Current regimen Metformin 1000 mg PO BID and Levemir 30 units daily and Humalog 5 units AC. She has failed treatment with Trulicity as well as Glipizide. She was unable to tolerate the Trulicity due to GI distress. She was intolerant to Jardiance due to recurrent vaginal yeast infection. Uses Dexcom sensor. Download shows she is using the sensor 100% of the time. Average glucose is 202 with G mi of 8.1% and standard deviation 61. 39% range with 60% hyperglycemia and no hypoglycemia Reports rare low sugars when she does not eat. Is aware of the rule of 15's to treat. No low sugars since her last visit. Treats lows with juice. Checks sugar after to ensure it is rising. Most recent A1C: 8.4 % 11/12/2022 Family history of T2DM in her Mother. Has eyes checked yearly, last eye exam 3 mos a go , denies retinopathy. Has neuropathy. Is on Gabapentin. Has nephropathy, on Losartan 100 mg PO daily. UAC 27.4 01/06/2021. Has HLD, on Atorvastatin 40 mg PO daily. Last LDL 134 06/27/2021. Denies CAD. Had diabetes education. 2) Osteoporosis: She has a longstanding history of hypercalcemia. She also has a long standing history of Osteoporosis of her spine and hip. She appears to have failed treatment with Fosamax. BMD has acutely worsened over the past 2 years. After our initial visit we completed a full workup for secondary causes of Osteoporosis. SPEP revealed possible elevated M protein. She was referred to Heme-Onc and had additional testing. This was thought to represent MGUS. She continues to follow with Heme-Onc. First diagnosed in her late 50's. Received treatment in the past with Fosamax for 1 years 5 yrs a go , but stopped this around the age of 65. Tolerated treatment well without complication. No history of pathologic fracture or ONJ. Has 0 servings of dietary calcium. Does not take Calcium. Takes 5000 IU of Vitamin D daily. Fracture history: Did have a fracture of her leg. This was a fragility fracture. She had a hysterectomy in her mid 40's and never had symptoms of menopause after. History of Kidney stones: Denies Family history of Osteoporosis in her Mother. UTD on dental cleanings and sees dentist every 6 months. No planned upcoming dental work or extractions. We discussed Prolia and she was initially agreeable to this, but then changed her mind and refused treatment. Also has a NTMNG. She underwent FNA biopsy 08/15/2022 of her left mid pole 1.7 cm thyroid nodule with benign (bethesda category II) cytology. Thyroid US: 04/18/2020 Right Thyroid Lobe: 4.5 x 1.8 x 1.5 cm, volume 6.4 mL. Parenchyma: The gland echotexture is heterogeneous. Thyroid vascularity is normal. Left Thyroid Lobe: 4.8 x 1.9 x 1.3 cm, volume 6.2 mL. Parenchyma: The gland echotexture is heterogeneous. Thyroid vascularity is normal. Isthmus: 0.5 cm in maximum AP dimension. Estimated total number of nodules greater than or equal to 1 cm: 3. Recovery Agent nodules are described as follows: 1. Location: Right mid. Size: 1.0 x 0.8 x 0.9 cm, volume 4 mL. Nodule characteristics: Composition: Solid (2). Echogenicity: Hypoechoic (2). Shape: Not taller than wide (0). Margins: Smooth (0). Echogenic Foci: Punctate echogenic foci (3). ACR TI-RADS total points: 7 ACR TI-RADS category: 5 2. Location: Right mid. Size: 1.0 x 0.8 x 0.8 cm, volume 0.3 mL. Nodule characteristics: Composition: Solid (2). Echogenicity: Hyperechoic (1). Shape: Not taller than wide (0). Margins: Ill-defined (0). Echogenic Foci: None (0). ACR TI-RADS total points: 3 ACR TI-RADS category: 3 3. Location: Left inferior. Size: 1.3 x 1.2 x 1.7 cm, volume 1.4 mL. Nodule characteristics: Composition: Solid (2). Echogenicity: Hyperechoic (1). Shape: Not taller than wide (0). Margins: Smooth (0). Echogenic Foci: None (0). ACR TI-RADS total points: 3 ACR TI-RADS category: 3 NODES: No lymphadenopathy is seen in the tissue surrounding the thyroid gland. DXA: 07/30/2022 FINDINGS: AP SPINE L1-L2 (excluding L3 and L4): The data of L1-L4 has been changed to exclude the L3 and L4 vertebral bodies, because hardware at these levels may cause overestimation of lumbar spine density. Current: BMD 0.771 g/cm2, Z-score -1.5, T-score -3.3, osteoporosis, 14.6% increase from previous, 3.1% decrease from baseline (<5% change is not significant). Prior: BMD 0.673 g/cm2. Baseline: BMD 0.796 g/cm2. LEFT FEMUR, NECK: Current: BMD 0.652 g/cm2, Z-score -1.0, T-score -2.8, osteoporosis. Prior: BMD 0.641 g/cm2. Baseline: BMD 0.716 g/cm2. LEFT FEMUR, TOTAL: Current: BMD 0.641 g/cm2, Z-score -1.3, T-score -2.9, osteoporosis, 1.6% increase from previous, 11.8% decrease from baseline (<5% change is not significant). Prior: BMD 0.631 g/cm2. Baseline: BMD 0.727 g/cm2. LEFT FOREARM RADIUS 33%: BMD 0.517 g/cm2, Z-score -2.1, T-score -4.1, osteoporosis. Prior:? Not previously measured. Labs: Laboratory Tests 03/27/22 08:20 Creatinine 1.05 Estimated GFR 52 PFSH Medical History Abnormal SPEP CKD (chronic kidney disease) Common bile duct dilatation Esophageal hernia GERD (gastroesophageal reflux disease) H. pylori duodenitis Hypercholesterolemia Hypertension Insomnia Osteoporosis Thyroid nodule Tubular adenoma of colon Type 2 diabetes mellitus with hyperglycemia Vitamin D deficiency Surgical History History of back surgery S/P epidural steroid injection Status post lumbar spine surgery for decompression of spinal cord H/O: hysterectomy History of partial hysterectomy Family History Father No problems noted. Mother Diabetes Social History Housing: House Are you a primary caregivers non medical to a significant other at home: No Alcohol intake: never Patient Tobacco Use Status: Never used Tobacco e-Cigarette/Vaping Use: Never Used Second Hand Smoke Exposure: No service: No Current occupational status: retired Cognitive needs: No Hearing needs: No Vision needs: Yes (Glasses) Physical Exam Vital Signs: Last Vital Signs Pulse 109 H 11/20/22 15:04 BP 144/68 H 11/20/22 15:04 BMI result Body Mass Index 28.5 Absence of Cushingoid features. Absence of acromegalic features. Neck exam reveals nl size thyroid about 15 gms. No thyroid nodules palpable. No carotid bruits present. Lungs CTA. Heart S1 S2, Reg R/R. No M/R/ G. Skin exam reveals absence of vitiligo or acanthosis nigricans. Abdominal exam reveals Soft NT/ND with NA BS. No organomegaly present. Neck Other: . Extrem Other: Visual exam of foot performed. No ulcerations or open lesions. No onchomycosis, no callouses.Pulses 2 + distally Sensation intact to monofilament exam. Vibratory sensation sensed is intact with 128 Hz tuning fork Results Reviewed Results Reviewed: 11/20/22 15:18 Glucose, Whole Blood Routine Laboratory Last Values Glucose (Clinic) 167 mg/dL (60-115) H 11/20/22 15:18 Assessment & Plan Assessment & Plan (1) Type 2 diabetes mellitus with hyperglycemia: Code(s): E11.65 - Type 2 diabetes mellitus with hyperglycemia Qualifiers: Diabetes mellitus buttermilk drier operator insulin use: with buttermilk drier operator use Qualified Code(s): E11.65 - Type 2 diabetes mellitus with hyperglycemia; Z79.4 - terminal computer operator (current) use of insulin Plan: This 72-year-old white female with history of type 2 diabetes being treated with metformin and basal-bolus insulin poor glycemic control and known microvascular complications namely CKD and neuropathy. Plan is to talk to the patient about starting another G LP 1 agonist either Ozempic or Mounjaro . Will start Mounjaro 2.5 mg Qwkly and titrate as tolerated. Went over side effects ofMounjaro including but not limited to nausea, vomiting and pancreatitis risk which is rare . Will also change Levemir to longer-acting insulin like Tresiba 30 units Will also have patient follow up with family life educator. Went over correlation of poor glycemic and the development and progression of complications Mounjaro 2.5 mg samples given the patient lot number expiration date Tresiba samples given the patient lot number expiration date (2) Osteoporosis: Code(s): M81.0 - Age-related osteoporosis without current pathological fracture Plan: Secondary workup was negative except for MGUS. Patient is currently on calcium and vitamin-D with high risk for fracture. The plan is to discuss potential therapies with the patient including use of anabolic therapy like Evenity, Tymlos or Forteo or anti resorptive therapy like Prolia but would favor anabolic therapy 1st. Patient is opting towards use of a anabolic agent like Evenity. (3) Hyperlipemia: Code(s): E78.5 - Hyperlipidemia, unspecified Orders: Orders Lipid Panel 2 Months E78.5 - Hyperlipidemia, unspecified Medications: New insulin degludec (Tresiba FlexTouch U-100 insulin) 30 units (0.3 mL) subcut DAILY 30 mL 5RF blood-glucose sensor ([employer] G7 Sensor device) As directed change every 10 days 3 ea 5RF Discontinued insulin detemir U-100 (Levemir FlexTouch U-100 Insulin) or as directed Discontinued Reason: Doctor's Order 30 units (0.3 mL) subcut DAILY 30 mL 12RF E11.65 - Type 2 diabetes mellitus with hyperglycemia, Z79.4 - terminal computer operator (current) use of insulin Coding Level of Care Code Est Pt Level 4 (29312) Diagnoses Type 2 diabetes mellitus with hyperglycemia, with long-term current use of insulin E11.65; Z79.4 Diabetes mellitus buttermilk drier operator insulin use: with buttermilk drier operator use Osteoporosis M81.0 Hyperlipemia E78.5
[2022-11-20 15:04] VITALS: BP 144/68; PULSE 109; BMI 28.5
[2022-11-20 15:27] LABS: Glucose, Whole Blood 167 mg/dL (60-115)
== END 2022-11-20 16:29 | disposition home or self-care (01) ==
PROVIDERS: Visit Provider Internal Medicine Endocrinology, Diabetes & Metabolism
DX: E11.65 Type 2 diabetes mellitus with hyperglycemia (principal); Z79.4 Long term (current) use of insulin; M81.0 Age-related osteoporosis without current pathological fracture; E78.5 Hyperlipidemia, unspecified
CPT/HCPCS: 99214

== ENCOUNTER → 2022-11-20 14:50 | Outpatient (BNVA) | payer MEDICARE, OTHER, SELFPAY | PROVIDERS: Visit Provider Internal Medicine Endocrinology, Diabetes & Metabolism | DX: E04.2 Nontoxic multinodular goiter (principal); M81.0 Age-related osteoporosis without current pathological fracture; E11.65 Type 2 diabetes mellitus with hyperglycemia; E78.5 Hyperlipidemia, unspecified; Z79.4 Long term (current) use of insulin | CPT/HCPCS: 82947; 99212 ==

== ENCOUNTER 2022-12-09 08:19 | Outpatient (REF) | payer MEDICARE, OTHER, SELFPAY | END 2022-12-09 08:20 | disposition home or self-care (01) | LOC: HO.MAMMO 08:19 | PROVIDERS: PCP Internal Medicine; Visit Provider Internal Medicine | DX: Z12.31 Encounter for screening mammogram for malignant neoplasm of breast (principal) | CPT/HCPCS: 77063; 77067 ==

== ENCOUNTER → 2022-12-09 08:30 | Outpatient (BNV) | payer MEDICARE, OTHER, SELFPAY | PROVIDERS: PCP Internal Medicine; Visit Provider Radiology Diagnostic Radiology | DX: Z12.31 Encounter for screening mammogram for malignant neoplasm of breast (principal) | CPT/HCPCS: 77063; 77067 ==

== ENCOUNTER 2023-03-18 06:24 | Outpatient (REF) | payer MEDICARE, OTHER, SELFPAY ==
[2023-03-18 07:50] LABS: Anion Gap 14 (12-20); Blood Urea Nitrogen 24 mg/dL (9-16); Calcium 10.3 mg/dL (8.4-10.2); Carbon Dioxide 24 mmol/L (22-29); Chloride 105 mmol/L (96-108); Cholesterol 232 mg/dL (<200); Estimated Glomerular Filt Rate 52; Glucose Random 98 mg/dL (60-115); HDL Cholesterol 70 mg/dL (>40); LDL Cholesterol Calculated 142 mg/dL (<100); Potassium 4.2 mmol/L (3.3-5.1); Sodium 139 mmol/L (135-145); Triglycerides 100 mg/dL (<150)
[2023-03-18 08:56] LABS: Appearance Urine Clear; Color Urine Yellow; Glucose Urine UA Negative (Negative); Leukocyte Esterase Urine Trace (Negative); Nitrite Urine Negative (Negative); PH 5.5 (5.0-9.0); Specific Gravity - Urine 1.015 (1.005-1.025); UMIC TRIGGER UACC YES; Urine Blood Negative (Negative); Urine Ketones Negative (Negative); Urine Protein Negative (Neg-Trace)
[2023-03-18 09:10] LABS: Bacteria Urine None Seen (None Seen); Hyaline Casts Urine 0-2 /LPF (0-2); RBC Urine 0-2 /HPF (0-2); Squamous Epithelial Cell Urine 0-2 /HPF (0-2); UACC Culture Trigger YES
[2023-03-18 09:28] LABS: Microalbum/Creatinine Ratio Ur 80.2 ug/mg cr (<30)
== END 2023-03-18 06:25 | disposition home or self-care (01) ==
LOC: HO.LAB 06:24
PROVIDERS: Absent Provider Internal Medicine Endocrinology, Diabetes & Metabolism; PCP Internal Medicine; Visit Provider Internal Medicine
DX: E11.65 Type 2 diabetes mellitus with hyperglycemia (principal); E78.5 Hyperlipidemia, unspecified; R30.0 Dysuria; Z79.4 Long term (current) use of insulin
CPT/HCPCS: 36415; 80048; 80061; 81001; 82043; 82570; 87086

== ENCOUNTER 2023-03-31 13:31 | Outpatient (AMB) | payer MEDICARE, OTHER, SELFPAY ==
--- NOTE | 2023-03-31 13:32 | MHC.OFFVIS ---
Intake Vital Signs 03/31/23 13:33 Height 5 ft 1 in Weight 157 lb 6.561 oz BMI 29.7 BP 152/72 H Blood Pressure Location Lt brachial Position Sitting Pulse 98 Pulse Source Pulse Oximeter Intake Visit Reasons: DM-confirmed Intake Note: Patient present today to follow up on Type 2 Diabetes Mellitus. Patient receives DME supplies through: [facility] Last Diabetic Eye exam: 07/2022 Last Podiatry Visit: None Random Glucose: 100 mg/dl HgA1C: 7.3% Marksmanship Instructor Required: No Accompanied by: Self / Same As Patient Allergies dulaglutide [[facility] Adverse Reaction (Intermediate, Verified 03/31/23 13:37) nausea glipizide Adverse Reaction (Intermediate, Verified 03/31/23 13:37) patient Medication List - Last Reconciled 03/31/23 by Luis Brooks MD acetaminophen (Tylenol Extra Strength) 500 mg PO Q6H PRN amlodipine 5 mg PO DAILY 90 days atorvastatin 80 mg PO BEDTIME 30 days blood sugar diagnostic (FreeStyle Lite Strips) As directed four times a day blood sugar diagnostic (OneTouch Ultra Test strips) 4x daily blood-glucose sensor (DexMedminder G7 Sensor device) As directed change every 10 days gabapentin 200 mg (2 x 100 mg) PO BEDTIME 90 days insulin aspart U-100 (Novolog FlexPen U-100 Insulin aspart) 10 units (0.1 mL) subcut TID insulin degludec (Tresiba FlexTouch U-100 insulin) 30 units (0.3 mL) subcut DAILY losartan 100 mg PO DAILY metformin 1,000 mg PO BID 90 days pen needle, diabetic As directed tirzepatide (Mounjaro) 2.5 mg (0.5 mL) subcut QWEEK 12 weeks zolpidem 5 mg PO BEDTIME PRN HPI HPI Comments History of Present Illness Details 72 YO F with PMHx T2DM who is seen in F/U for T2DM, Osteoporosis and a NTMNG. Diabetes will not be addressed today. Of note, the patient is somewhat of a poor historian. Additional history was provided by her Son who is a plastic surgeon in [facility]. 1) T2DM: Initially diagnosed with T2DM in 1999. Was initially started on treatment with Metformin. She started using Insulin in 2015. Current regimen Metformin 1000 mg PO BID and Tresiba 30 units daily and Novolog 10 units TID . mounjaro 2.5 mg Qwkly She has failed treatment with Trulicity as well as Glipizide. She was unable to tolerate the Trulicity due to GI distress. She was intolerant to Jardiance due to recurrent vaginal yeast infection. Uses Dexcom sensor. Download shows she is using the sensor 100% of the time. Average glucose is 174 with G mi of 7.5% and standard deviation 53. 61% range with 39% hyperglycemia and no hypoglycemia Reports no low sugars when she does not eat. Is aware of the rule of 15's to treat. No low sugars since her last visit. Treats lows with juice. Checks sugar after to ensure it is rising. Family history of T2DM in her Mother. Has eyes checked yearly, last eye exam 3-4 mos ago , denies retinopathy. Has neuropathy. Is on Gabapentin. Has nephropathy, on Losartan 100 mg PO daily. UAC 27.4 01/06/2021. Has HLD, on Atorvastatin 40 mg PO daily. Last LDL 134 06/27/2021. Denies CAD. Had diabetes education. 2) Osteoporosis: She has a longstanding history of hypercalcemia. She also has a long standing history of Osteoporosis of her spine and hip. She appears to have failed treatment with Fosamax. BMD has acutely worsened over the past 2 years. After our initial visit we completed a full workup for secondary causes of Osteoporosis. SPEP revealed possible elevated M protein. She was referred to Heme-Onc and had additional testing. This was thought to represent MGUS. She continues to follow with Heme-Onc. First diagnosed in her late 50's. Received treatment in the past with Fosamax for 1 years 5 yrs a go , but stopped this around the age of 65. Tolerated treatment well without complication. No history of pathologic fracture or ONJ. Has 0 servings of dietary calcium. Does not take Calcium. Takes 5000 IU of Vitamin D daily. Fracture history: Did have a fracture of her leg. This was a fragility fracture. She had a hysterectomy in her mid 40's and never had symptoms of menopause after. History of Kidney stones: Denies Family history of Osteoporosis in her Mother. UTD on dental cleanings and sees dentist every 6 months. No planned upcoming dental work or extractions. We discussed Prolia and she was initially agreeable to this, but then changed her mind and refused treatment. Also has a NTMNG. She underwent FNA biopsy 08/15/2022 of her left mid pole 1.7 cm thyroid nodule with benign (bethesda category II) cytology. Thyroid US: 04/18/2020 Right Thyroid Lobe: 4.5 x 1.8 x 1.5 cm, volume 6.4 mL. Parenchyma: The gland echotexture is heterogeneous. Thyroid vascularity is normal. Left Thyroid Lobe: 4.8 x 1.9 x 1.3 cm, volume 6.2 mL. Parenchyma: The gland echotexture is heterogeneous. Thyroid vascularity is normal. Isthmus: 0.5 cm in maximum AP dimension. Estimated total number of nodules greater than or equal to 1 cm: 3. Marksmanship Instructor nodules are described as follows: 1. Location: Right mid. Size: 1.0 x 0.8 x 0.9 cm, volume 4 mL. Nodule characteristics: Composition: Solid (2). Echogenicity: Hypoechoic (2). Shape: Not taller than wide (0). Margins: Smooth (0). Echogenic Foci: Punctate echogenic foci (3). ACR TI-RADS total points: 7 ACR TI-RADS category: 5 2. Location: Right mid. Size: 1.0 x 0.8 x 0.8 cm, volume 0.3 mL. Nodule characteristics: Composition: Solid (2). Echogenicity: Hyperechoic (1). Shape: Not taller than wide (0). Margins: Ill-defined (0). Echogenic Foci: None (0). ACR TI-RADS total points: 3 ACR TI-RADS category: 3 3. Location: Left inferior. Size: 1.3 x 1.2 x 1.7 cm, volume 1.4 mL. Nodule characteristics: Composition: Solid (2). Echogenicity: Hyperechoic (1). Shape: Not taller than wide (0). Margins: Smooth (0). Echogenic Foci: None (0). ACR TI-RADS total points: 3 ACR TI-RADS category: 3 NODES: No lymphadenopathy is seen in the tissue surrounding the thyroid gland. DXA: 07/30/2022 FINDINGS: AP SPINE L1-L2 (excluding L3 and L4): The data of L1-L4 has been changed to exclude the L3 and L4 vertebral bodies, because hardware at these levels may cause overestimation of lumbar spine density. Current: BMD 0.771 g/cm2, Z-score -1.5, T-score -3.3, osteoporosis, 14.6% increase from previous, 3.1% decrease from baseline (<5% change is not significant). Prior: BMD 0.673 g/cm2. Baseline: BMD 0.796 g/cm2. LEFT FEMUR, NECK: Current: BMD 0.652 g/cm2, Z-score -1.0, T-score -2.8, osteoporosis. Prior: BMD 0.641 g/cm2. Baseline: BMD 0.716 g/cm2. LEFT FEMUR, TOTAL: Current: BMD 0.641 g/cm2, Z-score -1.3, T-score -2.9, osteoporosis, 1.6% increase from previous, 11.8% decrease from baseline (<5% change is not significant). Prior: BMD 0.631 g/cm2. Baseline: BMD 0.727 g/cm2. LEFT FOREARM RADIUS 33%: BMD 0.517 g/cm2, Z-score -2.1, T-score -4.1, osteoporosis. Prior:? Not previously measured. Labs: Laboratory Tests 03/27/22 08:20 Creatinine 1.05 Estimated GFR 52 PFSH Medical History Abnormal SPEP CKD (chronic kidney disease) Common bile duct dilatation Esophageal hernia GERD (gastroesophageal reflux disease) H. pylori duodenitis Hypercholesterolemia Hypertension Insomnia Osteoporosis Thyroid nodule Tubular adenoma of colon Type 2 diabetes mellitus with hyperglycemia Vitamin D deficiency Surgical History History of back surgery S/P epidural steroid injection Status post lumbar spine surgery for decompression of spinal cord H/O: hysterectomy History of partial hysterectomy Family History Father No problems noted. Mother Diabetes Social History Housing: House Are you a primary dog daycare provider to a significant other at home: No Alcohol intake: never Patient Tobacco Use Status: Never used Tobacco e-Cigarette/Vaping Use: Never Used Second Hand Smoke Exposure: No service: No Current occupational status: retired Cognitive needs: No Hearing needs: No Vision needs: Yes (Glasses) Physical Exam Vital Signs: Last Vital Signs Pulse 98 03/31/23 13:33 BP 152/72 H 03/31/23 13:33 BMI result Body Mass Index 29.7 Absence of Cushingoid features. Absence of acromegalic features. Neck exam reveals nl size thyroid about 15 gms. No thyroid nodules palpable. No carotid bruits present. Lungs CTA. Heart S1 S2, Reg R/R. No M/R/ G. Skin exam reveals absence of vitiligo or acanthosis nigricans. Abdominal exam reveals Soft NT/ND with NA BS. No organomegaly present. Neck Other: . Extrem Other: Visual exam of foot performed. No ulcerations or open lesions. No onchomycosis, no callouses.Pulses 2 + distally Sensation intact to monofilament exam. Vibratory sensation sensed is intact with 128 Hz tuning fork Results AMB Hemoglobin A1c AMB Hemoglobin A1c 7.3 % Last Edit by Yolanda Hendrickson on 03/31/23 13:53 Assessment & Plan Assessment & Plan (1) Type 2 diabetes mellitus with hyperglycemia: Code(s): E11.65 - Type 2 diabetes mellitus with hyperglycemia Qualifiers: Diabetes mellitus terminal operator insulin use: with half-way use Qualified Code(s): E11.65 - Type 2 diabetes mellitus with hyperglycemia; Z79.4 - watermelon inspector (current) use of insulin Plan: This 72-year-old white female with history of type 2 diabetes being treated with metformin , Mounjaro and basal-bolus insulin poor glycemic control and known microvascular complications namely CKD and neuropathy. Plan is to restart the Mounjaro 2.5 mg Will also have patient follow up with family life educator. Went over correlation of poor glycemic and the development and progression of complications. (2) Osteoporosis: Code(s): M81.0 - Age-related osteoporosis without current pathological fracture Plan: Secondary workup was negative except for MGUS. Patient is currently on calcium and vitamin-D with high risk for fracture. Currently on Prolia and calcium and vitamin-D The plan is to have patient follow up with Hematology regarding MGUS. Assuming hematology is okay with starting Prolia will then start Prolia 60 mg q.6 months . Asked patient to have mechanical engineering director faxed follow-up letter to me (3) Hyperlipemia: Code(s): E78.5 - Hyperlipidemia, unspecified Plan: As below (4) Hypercholesterolemia: Code(s): E78.00 - Pure hypercholesterolemia, unspecified Plan: LDL is not at goal at atorvastatin 80 mg. We will add ezetimibe 10 mg recheck lipid profile in 6 weeks Orders: Orders AMB Hemoglobin A1c Today E11.65 - Type 2 diabetes mellitus with hyperglycemia Lipid Panel 5 Weeks E11.65 - Type 2 diabetes mellitus with hyperglycemia Medications: New ezetimibe (Zetia) 10 mg PO DAILY 30 tabs 0RF Coding Level of Care Code Est Pt Level 4 (45519) Diagnoses Type 2 diabetes mellitus with hyperglycemia, with long-term current use of insulin E11.65; Z79.4 Diabetes mellitus terminal operator insulin use: with half-way use Osteoporosis M81.0 Hyperlipemia E78.5 Hypercholesterolemia E78.00
[2023-03-31 13:33] VITALS: BP 152/72; PULSE 98; BMI 29.7
[2023-03-31 13:46] LABS: Glucose, Whole Blood 100 mg/dL (60-115)
== END 2023-03-31 14:13 | disposition home or self-care (01) ==
PROVIDERS: Visit Provider Internal Medicine Endocrinology, Diabetes & Metabolism
DX: E11.65 Type 2 diabetes mellitus with hyperglycemia (principal); Z79.4 Long term (current) use of insulin; M81.0 Age-related osteoporosis without current pathological fracture; E78.5 Hyperlipidemia, unspecified; E78.00 Pure hypercholesterolemia, unspecified
CPT/HCPCS: 99214

== ENCOUNTER → 2023-03-31 13:31 | Outpatient (BNVA) | payer MEDICARE, OTHER, SELFPAY | PROVIDERS: Visit Provider Internal Medicine Endocrinology, Diabetes & Metabolism | DX: E11.65 Type 2 diabetes mellitus with hyperglycemia (principal); M81.0 Age-related osteoporosis without current pathological fracture; E78.5 Hyperlipidemia, unspecified; E78.00 Pure hypercholesterolemia, unspecified; Z79.4 Long term (current) use of insulin | CPT/HCPCS: 82947; 83036; 99212 ==

== ENCOUNTER 2023-05-09 13:20 | Outpatient (AMB) | payer MEDICARE, OTHER, SELFPAY ==
--- NOTE | 2023-05-09 13:13 | A.OFFPC_ITS ---
Vital Signs 05/09/23 13:25 05/09/23 13:33 Height 5 ft 1 in Weight 151 lb 8 oz BMI 28.6 BP 100/60 117/70 Blood Pressure Location Rt brachial Lt brachial Position Sitting Sitting Pulse 85 Pulse Source Pulse Oximeter Pulse Oximetry (%) 99 Oxygen Delivery Method Room Air Intake Visit Reasons: Annual PE Intake Note: Patient is here today for a physical. Specialty Cook Required: No Orthopedic Assistant: Not Required per policy Accompanied by: Self / Same As Patient Allergies dulaglutide [From [facility]] Adverse Reaction (Intermediate, Verified 05/09/23 13:24) nausea glipizide Adverse Reaction (Intermediate, Verified 05/09/23 13:24) patient Medication List - Last Reconciled 05/09/23 by Ailyn Garzon MD amlodipine 10 mg PO DAILY aspirin 81 mg PO DAILY atorvastatin 80 mg PO BEDTIME blood sugar diagnostic (Tyres on the DriveTouch Ultra Test strips) 4x daily blood-glucose sensor (Dexcom G7 Sensor device) As directed change every 10 days gabapentin 200 mg (2 x 100 mg) PO BEDTIME 90 days insulin aspart U-100 (Novolog FlexPen U-100 Insulin aspart) 10 units (0.1 mL) subcut TID insulin degludec (Tresiba FlexTouch U-100 insulin) 30 units (0.3 mL) subcut DAILY losartan 100 mg PO DAILY metformin 1,000 mg PO BID 90 days pen needle, diabetic As directed tirzepatide (Mounjaro) 2.5 mg (0.5 mL) subcut QWEEK 12 weeks zolpidem 5 mg PO BEDTIME PRN Tobacco use date assessed: 05/09/23 Fall risk assessment: No Falls in past year Last assessed Fall Risk: 05/09/23 Dental Screening Dental Screen Date: 05/09/23 Did you have a dental visit in the last 12 months?: Yes Did you have a dental problem in the last 6 months where you did not have access to dental care?: No Was dental information given to patient?: Patient has dentist HPI Annual PE HPI Details 72-year-old overweight female with diabe nano mellitus hypertension hypercholesterolemia GERD chronic kidney disease last seen in 2021. Patient's colonoscopy February 2019 bone density May 2018 mammogram November 2022 patient sees for Ophthalmology diagnosis of nonproliferative diabetes retinopathy advised intravitreal injections March 2023 has macular edema and cataracts patient has followed up with endocrinology also for the diabetes mellitus osteoporosis and non toxic multinodular goiter. For the diabetes placed on Mounjaro failure from Trulicity can not tolerate Jardiance. Osteoporosis calcium vitamin-D will be seeing Hematology Oncology regarding MGUS before starting Prolia addition of Zetia for cholesterol. Patient has been followed up by Nephrology also diagnosis of hypertensive disorder hypercalcemia monoclonal gammopathy of unknown significance workup requested. sob on exertion 3months having palpitations hearing PFSH Medical History Abnormal SPEP CKD (chronic kidney disease) Common bile duct dilatation Esophageal hernia GERD (gastroesophageal reflux disease) H. pylori duodenitis Hypercholesterolemia Hypertension Insomnia Osteoporosis Thyroid nodule Tubular adenoma of colon Type 2 diabetes mellitus with hyperglycemia Vitamin D deficiency Surgical History History of back surgery S/P epidural steroid injection Status post lumbar spine surgery for decompression of spinal cord H/O: hysterectomy History of partial hysterectomy Family History Father No problems noted. Mother Diabetes Social History Housing: House Are you a primary post acute care registered nurse to a significant other at home: No Alcohol intake: never Patient Tobacco Use Status: Never used Tobacco e-Cigarette/Vaping Use: Never Used Second Hand Smoke Exposure: No service: No Current occupational status: retired Cognitive needs: No Hearing needs: No Vision needs: Yes (Glasses) Questionnaire PHQ-9 Over the last 2 weeks, how often have you been bothered by any of the following problems? 1. Little interest or pleasure in doing things: not at all 2. Feeling down, depressed, or hopeless: not at all 3. Trouble falling or staying asleep, or sleeping too much: not at all 4. Feeling tired or having little energy: not at all 5. Poor appetite or overeating: not at all 6. Feeling bad about yourself - or that you are a failure or have let yourself or your family down: not at all 7. Trouble concentrating on things, such as reading the newspaper or watching television: not at all 8. Moving or speaking so slowly that other people could have noticed. Or the opposite - being so fidgety or restless that you have been moving around a lot more than usual: not at all 9. Thoughts that you would be better off or of hurting yourself in some way: not at all Total score: 0 Depression Screening Interpretation: Negative Depression Screening Done: Yes Source: Developed by Drs. Luis Grewal, Keysha Monreal, Edgar Bernardo and colleagues, with an educational rachana from [employer]. Thrive Questionnaire Date Thrive assessed: 05/09/23 I am a: Patient What is your living situation today?: I have a steady place to live Within the past 12 months, did the food you bought not last and you didn't have the money to get more?: Never true Within the past 12 months, did you worry whether your food would run out before you got money to buy more?: Never true Do you have trouble paying for medicines?: No Do you have trouble getting transportation to medical appointments?: No Do you have trouble paying your heating and electricity bill?: No Do you have trouble taking care of your child, family member or friend?: No Do you have trouble with day-to-day activities such as bathing, preparing meals, shopping, managing finances, etc.?: No Are you currently unemployed and looking for a job?: No Are you interested in more education?: No Currently or been in a relationship where the following occur: no concerns reported THRIVE Score: 0 AUDIT C Alcohol Use Questionnaire (AUDIT-C) 1. How often do you have a drink containing alcohol?: Never Total Score: 0 NASRA-7 AMB Questionnaire NASRA-7 Date NASRA - 7 assessed: 05/09/23 Feeling nervous, anxious, or on edge: 0 = Not at all Not being able to stop or control worryin = Not at all Worrying too much about different things: 0 = Not at all Trouble relaxin = Not at all Being so restless that it is hard to sit still: 0 = Not at all Becoming easily annoyed or irritable: 0 = Not at all Feeling afraid as if something awful might happen: 0 = Not at all Total NASRA-7 score (0-4 normal; 5-9 mild; 10-14 moderate; 15-21 severe): 0 Source: Developed by Drs. Luis Grewal, Keysha Monreal, Edgar Bernardo and colleagues, with an educational rachana from [employer]. Review of Systems Const Denies poor appetite and Denies weakness Eyes Denies no additional complaints ENT Reports Normal hearing present, Denies dizziness, Denies nasal congestion, Denies tinnitus and Denies sore throat Card Denies chest pain, Denies syncope, Denies rapid heart rate and Denies dyspnea Resp Denies cough and Denies dyspnea GI Denies change in stool character, Reports constipation, Denies diarrhea, Denies nausea and Denies vomiting Denies urinary frequency, Denies difficulty voiding and Denies dysuria Neuro Reports Normal hearing present, Denies confusion, Denies dizziness, Denies syncope and Denies weakness Psych Denies confusion Physical exam (Primary Care) Vital Signs: Last Vital Signs Pulse 85 05/09/23 13:25 BP 100/60 05/09/23 13:25 Pulse Ox 99 05/09/23 13:25 Oxygen Delivery Method Room Air 05/09/23 13:25 BMI result Body Mass Index 28.6 Tobacco/Smoking Status: Tobacco use Status Tobacco use date assessed 11/12/21 05/09/23 13:16 Patient Tobacco Use Status Never used Tobacco 05/09/23 13:16 e-Cigarette/Vaping Use Never Used 05/09/23 13:16 Depression Screening Interpretation: Negative Thrive Assessment: Date of Thrive Assessment Date Thrive assessed 07/27/21 05/09/23 13:16 Currently or been in a relationship where the following occur: no concerns reported Const General: No confusion Orientation/consciousness: No confusion HENMT Head: Yes normocephalic Ears: external ears normal and TM's normal bilaterally Face and sinus: Yes normal facial exam Mouth: moist mucous membranes Throat: Yes tonsils normal Eyes Conjunctivae: conjunctivae normal Pupils: Equal, round and reactive pupils present and Pupil accommodation reflex normal Direct Ophthalmoscopy: normal light reflex Neck Neck: No lymphadenopathy Thyroid: Thyroid normal Chest Chest palpation & inspection: normal inspection of the chest Resp Effort & Inspection: normal respiratory effort and no audible wheezes Auscultation: clear to auscultation bilaterally, no crackles, no wheezes and lung sounds not diminished Cardio Rate: regular rate Rhythm: regular rhythm Peripheral pulses: radial pulses present and dorsalis pedis present GI Other: guaiac positive pedal pulse normal and pin prick good Palpation (GI): no masses Auscultation: normal bowel sounds and normoactive bowel sounds Rectal Exam - Female: deferred Skin General skin exam: no rashes or lesions noted Rashes: no rashes Neuro General: No confusion Cranial nerves: Yes Equal, round and reactive pupils present and Yes Normal hearing present Cognition (Neuro): normal cognition Gait exam (Neuro): Normal gait present Motor exam (neuro): 5/5 motor strength present throughout Deep tendon reflexes (DTR's): Right brachioradialis reflex intensity grade: 2+, Left brachioradialis reflex intensity grade: 2+, Right patellar reflex intensity grade: 2+ and Left patellar reflex intensity grade: 2+ Extrem General: No edema Assessment and Plan Assessment & Plan (1) Annual physical exam: Code(s): Z00.00 - Encounter for general adult medical examination without abnormal findings (2) Type 2 diabetes mellitus with hyperglycemia: Code(s): E11.65 - Type 2 diabetes mellitus with hyperglycemia Qualifiers: Diabetes mellitus terminal carman insulin use: with jail use Qualified Code(s): E11.65 - Type 2 diabetes mellitus with hyperglycemia; Z79.4 - FPC (current) use of insulin Plan: Decrease the amount of carbohydrate intake, pasta, bread, rice and potatoes are all sugar and that is aside from all the sweet stuff, remember that fruits are good but they are Sweet also. Patient is being followed up by Endocrinology on Tresiba and NovoLog metformin and Mounjaro hemoglobin A1c in March 2023 7.3 (3) Hypertension: Code(s): I10 - Essential (primary) hypertension Qualifiers: Hypertension type: essential hypertension Qualified Code(s): I10 - Essential (primary) hypertension Plan: Continue with blood pressure medication. Decrease salt intake and exercise patient is taking losartan 100 mg once a day amlodipine 5 mg once a day (4) Hypercholesterolemia: Code(s): E78.00 - Pure hypercholesterolemia, unspecified Plan: Avoid fried foods, chicken skin, eggs, butter margarine, pastries and meat. Be it pork or beef they have a lot of cholesterol LDL goal of less than 100 and triglyceride of less than 150. Patient on atorvastatin 80 mg once a day and recently added Zetia 10 mg once a day (5) GERD (gastroesophageal reflux disease): Code(s): K21.9 - Gastro-esophageal reflux disease without esophagitis Plan: Avoid the foods that causes that usually spicy foods, tomato products, juices, coffee, soda and foods that your sensitive to. After eating do not lie down, allow 3-4 hours before in lie down. And keep the head of bed above 30 degrees to avoid the acid from going up. (6) CKD (chronic kidney disease): Code(s): N18.9 - Chronic kidney disease, unspecified Plan: Patient is being followed up by Nephrology continuing with diabetes control and blood pressure control (7) Osteoporosis: Code(s): M81.0 - Age-related osteoporosis without current pathological fracture Plan: Calcium vitamin-D endocrinology has has introduced Prolia (8) MGUS (monoclonal gammopathy of unknown significance): Code(s): D47.2 - Monoclonal gammopathy Plan: Patient is being followed by hematology oncology (9) SOB (shortness of breath) on exertion: Code(s): R06.02 - Shortness of breath (10) Guaiac positive stools: Code(s): R19.5 - Other fecal abnormalities Orders: Orders Complete Blood Count Auto Diff Today E11.65 - Type 2 diabetes mellitus with hyperglycemia, Z79.4 - termite control representative (current) use of insulin Ferritin Today E11.65 - Type 2 diabetes mellitus with hyperglycemia, Z79.4 - termite control representative (current) use of insulin Reticulocyte Count Today E11.65 - Type 2 diabetes mellitus with hyperglycemia, Z79.4 - FPC (current) use of insulin Lipid Panel Today E11.65 - Type 2 diabetes mellitus with hyperglycemia, E78.00 - Pure hypercholesterolemia, unspecified, Z79.4 - FPC (current) use of insulin Thyroid Stimulating Hormone Today E11.65 - Type 2 diabetes mellitus with hyperglycemia, Z79.4 - termite control representative (current) use of insulin Magnesium Today E11.65 - Type 2 diabetes mellitus with hyperglycemia, Z79.4 - FPC (current) use of insulin ECG 12 lead EKG Today E11.65 - Type 2 diabetes mellitus with hyperglycemia, Z79.4 - FPC (current) use of insulin XR chest 2V Today R06.02 - Shortness of breath Vitamin B12 and Folate Today E11.65 - Type 2 diabetes mellitus with hyperglycemia, Z79.4 - termite control representative (current) use of insulin IRON PROFILE Today E11.65 - Type 2 diabetes mellitus with hyperglycemia, Z79.4 - FPC (current) use of insulin Creatinine Urine Today E11.65 - Type 2 diabetes mellitus with hyperglycemia, Z79.4 - termite control representative (current) use of insulin Microalbumin, Random (w Creat) Today E11.65 - Type 2 diabetes mellitus with hyperglycemia, Z79.4 - termite control representative (current) use of insulin Free T4 (Free Thyroxine) Today E11.65 - Type 2 diabetes mellitus with hyperglycemia, Z79.4 - termite control representative (current) use of insulin Vitamin D 25-OH Total Today E11.65 - Type 2 diabetes mellitus with hyperglycemia, Z79.4 - FPC (current) use of insulin Phosphorus Today E11.65 - Type 2 diabetes mellitus with hyperglycemia, Z79.4 - termite control representative (current) use of insulin Referrals Hematology & Oncology Referral D47.2 - Monoclonal gammopathy Gastroenterology Referral R19.5 - Other fecal abnormalities Coding Level of Care Code Est Pt Prev Care >65y(79228) Diagnoses Annual physical exam Z00.00 Type 2 diabetes mellitus with hyperglycemia, with long-term current use of insulin E11.65; Z79.4 Diabetes mellitus terminal carman insulin use: with jail use Essential hypertension I10 Hypertension type: essential hypertension Hypercholesterolemia E78.00 GERD (gastroesophageal reflux disease) K21.9 CKD (chronic kidney disease) N18.9 Osteoporosis M81.0 MGUS (monoclonal gammopathy of unknown significance) D47.2 SOB (shortness of breath) on exertion R06.02 Guaiac positive stools R19.5
[2023-05-09 13:25] VITALS: BP 100/60; PULSE 85; O2SAT 99; BMI 28.6
[2023-05-09 13:33] VITALS: BP 117/70
== END 2023-05-09 14:17 | disposition home or self-care (01) ==
PROVIDERS: PCP Internal Medicine; Visit Provider Internal Medicine
DX: Z00.00 Encounter for general adult medical examination without abnormal findings (principal); I12.9 Hypertensive chronic kidney disease with stage 1 through stage 4 chronic kidney disease, or unspecified chronic kidney disease; N18.9 Chronic kidney disease, unspecified; E11.65 Type 2 diabetes mellitus with hyperglycemia; Z79.4 Long term (current) use of insulin; E78.00 Pure hypercholesterolemia, unspecified; K21.9 Gastro-esophageal reflux disease without esophagitis; M81.0 Age-related osteoporosis without current pathological fracture; D47.2 Monoclonal gammopathy; R06.02 Shortness of breath; R19.5 Other fecal abnormalities
CPT/HCPCS: 99397

== ENCOUNTER 2023-05-10 07:19 | Outpatient (REF) | payer MEDICARE, OTHER, SELFPAY ==
--- NOTE | ~2023-05-10 | XR_ITS ---
EXAMINATION: XR chest 2V CLINICAL INFORMATION: Reason for Exam R06.02 - Shortness of breath COMPARISON: 04/23/2016 TECHNIQUE: 2 views of the chest FINDINGS: Clear lungs. No pneumothorax or pleural effusion. Normal cardiomediastinal silhouette. Hiatal hernia. XR/XR chest 2V Impression: No acute pulmonary disease. Hiatal hernia.
[2023-05-10 08:03] LABS: Basophils Absolute Auto 0.1 X10*3/uL (0.0-0.2); Basophils Percent Auto 0.7 % (0-2); Eosinophils Absolute Auto 0.3 X10*3/uL (0.0-0.4); Eosinophils Percent Auto 3.1 % (0-4); Hematocrit 31.1 % (37.0-47.0); Hemoglobin 9.2 g/dl (12.0-16.0); Imm Gran Abs Auto 0.03 X10*3/uL (0.00-0.03); Imm Gran Pct Auto 0.4 % (0.0-0.4); Immature Retic Fraction 18.3 % (3.0-15.9); Lymphocytes Absolute Auto 2.7 X10*3/uL (1.2-4.9); Lymphocytes Percent Auto 32.4 % (20-40); MANUAL DIFF FLAG SCAN; Mean Corpuscular HGB Conc 29.6 g/dl (31.0-35.0); Mean Corpuscular Hemoglobin 18.4 pg (27.0-33.0); Mean Platelet Volume 8.8 fL (9.4-12.3); Monocytes Absolute Auto 0.6 X10*3/uL (0.1-1.2); Monocytes Percent Auto 6.7 % (2-11); Neutrophils Absolute Auto 4.7 x10*3/uL (2.0-8.3); Neutrophils Percent Auto 56.7 % (45-73); Platelet Count 470 X10*3/uL (160-400); Red Cell Distribution Width 19.9 % (11.0-16.0); Retic HGB Equivalent 18.3 pg (30.0-35.0); Reticulocyte Percent 1.2 % (0.5-1.8); Reticulocytes Absolute 0.058 X10*6/uL (0.026-0.095); SCAN SMEAR FLAG 1; White Blood Count 8.3 X10*3/uL (4.8-10.8)
[2023-05-10 08:05] LABS: Mean Corpuscular Volume 62.2 fL (80.0-98.0)
[2023-05-10 08:25] LABS: SLIDE REVIEW VERIFIED
[2023-05-10 08:40] LABS: Creatinine Urine 73.22 mg/dL; Microalbum/Creatinine Ratio Ur 20.4 ug/mg cr (<30)
[2023-05-10 08:46] LABS: Albumin Level 4.3 g/dL (3.5-5.0); Calcium 10.4 mg/dL (8.4-10.2); Cholesterol 204 mg/dL (<200); Cholesterol 211 mg/dL (<200); Estimated Glomerular Filt Rate 47; HDL Cholesterol 62 mg/dL (>40); HDL Cholesterol 63 mg/dL (>40); Iron 24 mcg/dL (30-160); LDL Cholesterol Calculated 123 mg/dL (<100); LDL Cholesterol Calculated 130 mg/dL (<100); Magnesium 1.6 mg/dL (1.6-2.6); Percent Iron Saturation 6 % (15-50); Phosphorus 3.3 mg/dL (2.7-4.5); Total Iron Binding Capacity 377 mcg/dL (228-428); Triglycerides 94 mg/dL (<150); Triglycerides 96 mg/dL (<150); Unsaturated Iron Binding 353 ug/dL
[2023-05-10 08:47] LABS: Parathyroid Hormone Intact 55.9 pg/mL (8.7-77.1)
[2023-05-10 09:03] LABS: Ferritin 7 ng/mL (10-250); Free T4 (Free Thyroxine) 1.07 ng/dL (0.71-1.85); Vitamin D 25-OH Total 40.9 ng/mL (>30)
[2023-05-10 09:15] LABS: Folate 12.7 ng/mL (> or = 4.0); Vitamin B12 901 pg/mL (200-900)
== END 2023-05-10 07:20 | disposition home or self-care (01) ==
LOC: HO.LAB 07:19
PROVIDERS: Internal Medicine Endocrinology, Diabetes & Metabolism; PCP Internal Medicine; Visit Provider Internal Medicine
DX: E11.65 Type 2 diabetes mellitus with hyperglycemia (principal); R06.02 Shortness of breath; E78.00 Pure hypercholesterolemia, unspecified; E83.52 Hypercalcemia; Z79.4 Long term (current) use of insulin
CPT/HCPCS: 36415; 71046; 80061; 82040; 82043; 82306; 82310; 82565; 82570; 82607; 82728; 82746; 83540; 83735; 83970; 84100; 84439; 84443; 85025; 85045

== ENCOUNTER → 2023-05-12 10:20 | Outpatient (REF) | payer MEDICARE, OTHER, SELFPAY ==
--- NOTE | 2023-05-12 10:28 | ECG_ITS ---
Test Reason : dm Blood Pressure : / mmHG Vent. Rate : 084 BPM Atrial Rate : 084 BPM P-R Int : 166 ms QRS Dur : 068 ms QT Int : 364 ms P-R-T Axes : 055 021 055 degrees QTc Int : 430 ms Normal sinus rhythm Normal ECG When compared with ECG of 23-FEB-2022 11:49, No significant change was found Referred By: Ailyn Garzon Electronically Signed By:Alvaro Gallegos
== END ==
LOC: HO.CARD 10:20
PROVIDERS: PCP Internal Medicine; Visit Provider Internal Medicine
DX: E11.65 Type 2 diabetes mellitus with hyperglycemia (principal); Z79.4 Long term (current) use of insulin
CPT/HCPCS: 93005

== ENCOUNTER → 2023-05-12 10:28 | Outpatient (BNV) | payer MEDICARE, OTHER, SELFPAY | PROVIDERS: PCP Internal Medicine; Visit Provider Internal Medicine Cardiovascular Disease | DX: E11.9 Type 2 diabetes mellitus without complications (principal) | CPT/HCPCS: 93010 ==

== ENCOUNTER → 2023-06-16 10:00 | Outpatient (BNV) | payer MEDICARE, OTHER, SELFPAY | PROVIDERS: PCP Internal Medicine; Referring Provider Internal Medicine; Visit Provider Internal Medicine | DX: D47.2 Monoclonal gammopathy (principal); D50.9 Iron deficiency anemia, unspecified; R77.9 Abnormality of plasma protein, unspecified | CPT/HCPCS: 99204; 99214 ==

== ENCOUNTER 2023-07-08 08:22 | Outpatient (AMB) | payer MEDICARE, OTHER, SELFPAY ==
[2023-07-08 08:25] VITALS: BP 132/54; PULSE 99; BMI 29.3
--- NOTE | 2023-07-08 08:25 | A.OFFVIS_ITS ---
Vital Signs 07/08/23 08:25 Height 5 ft 1 in Weight 155 lb 3.287 oz BMI 29.3 BP 132/54 L Blood Pressure Location Lt brachial Position Sitting Pulse 99 Pulse Source Pulse Oximeter Intake Visit Reasons: f/u Type 2 DM /hyperlipidemia /osteoporosis Intake Note: Patient present today to follow up on Type 2 Diabetes Mellitus. Patient receives DME supplies through: [employer] Last Diabetic Eye exam: 04/2023 Last Podiatry Visit: Doesn't have one. Random Glucose: 108 mg/dl HgA1C: 6.5% Hospital Superintendent Required: No Accompanied by: Self / Same As Patient Allergies dulaglutide [From Trulicity] Adverse Reaction (Intermediate, Verified 07/08/23 08:31) nausea glipizide Adverse Reaction (Intermediate, Verified 07/08/23 08:31) patient HPI Comments Details: 73 YO F with PMHx T2DM who is seen in F/U for T2DM, Osteoporosis and a NTMNG. . Of note, the patient is somewhat of a poor historian. Additional history was provided by her Son who is a plastic surgeon in [facility]. 1) T2DM: Initially diagnosed with T2DM in 1999. Was initially started on treatment with Metformin. She started using Insulin in 2016. Current regimen Metformin 1000 mg PO BID and Tresiba 30 units daily and Novolog 10 units TID . mounjaro 2.5 mg Qwkly She has failed treatment with Trulicity as well as Glipizide. She was unable to tolerate the Trulicity due to GI distress. She was intolerant to Jardiance due to recurrent vaginal yeast infection. Uses Dexcom sensor. Download shows she is using the sensor 79% of the time. Average glucose is 175 with G mi of 7.5% and standard deviation 48. 60% range with 40% hyperglycemia and no hypoglycemia Reports no low sugars when she does not eat. Is aware of the rule of 15's to treat. No low sugars since her last visit. Treats lows with juice. Checks sugar after to ensure it is rising. Family history of T2DM in her Mother. Has eyes checked yearly, last eye exam couple of mos a go , has retinopathy. Has neuropathy. Is on Gabapentin. Has nephropathy, on Losartan 100 mg PO daily. UAC 27.4 01/06/2021. Has HLD, on Atorvastatin 40 mg PO daily. Now on 80 mg atorvastatin Last LDL 134 06/27/2021. Denies CAD. Had diabetes education. 2) Osteoporosis: She has a longstanding history of hypercalcemia. She also has a long standing history of Osteoporosis of her spine and hip. She appears to have failed treatment with Fosamax. BMD has acutely worsened over the past 2 years. After our initial visit we completed a full workup for secondary causes of Osteoporosis. SPEP revealed possible elevated M protein. She was referred to Heme-Onc and had additional testing. This was thought to represent MGUS. She continues to follow with Heme-Onc. First diagnosed in her late 50's. Received treatment in the past with Fosamax for 1 years 5 yrs a go , but stopped this around the age of 65. Tolerated treatment well without complication. No history of pathologic fracture or ONJ. Has 0 servings of dietary calcium. Does not take Calcium. Takes 5000 IU of Vitamin D daily. Fracture history: Did have a fracture of her leg. This was a fragility fracture. She had a hysterectomy in her mid 40's and never had symptoms of menopause after. History of Kidney stones: Denies Family history of Osteoporosis in her Mother. UTD on dental cleanings and sees dentist every 6 months. No planned upcoming de ntal work or extractions. We discussed Prolia and she was initially agreeable to this, but then changed her mind and refused treatment. Also has a NTMNG. She underwent FNA biopsy 08/15/2022 of her left mid pole 1.7 cm thyroid nodule with benign (bethesda category II) cytology. Thyroid US: 04/18/2020 Right Thyroid Lobe: 4.5 x 1.8 x 1.5 cm, volume 6.4 mL. Parenchyma: The gland echotexture is heterogeneous. Thyroid vascularity is normal. Left Thyroid Lobe: 4.8 x 1.9 x 1.3 cm, volume 6.2 mL. Parenchyma: The gland echotexture is heterogeneous. Thyroid vascularity is normal. Isthmus: 0.5 cm in maximum AP dimension. Estimated total number of nodules greater than or equal to 1 cm: 3. Silicator nodules are described as follows: 1. Location: Right mid. Size: 1.0 x 0.8 x 0.9 cm, volume 4 mL. Nodule characteristics: Composition: Solid (2). Echogenicity: Hypoechoic (2). Shape: Not taller than wide (0). Margins: Smooth (0). Echogenic Foci: Punctate echogenic foci (3). ACR TI-RADS total points: 7 ACR TI-RADS category: 5 2. Location: Right mid. Size: 1.0 x 0.8 x 0.8 cm, volume 0.3 mL. Nodule characteristics: Composition: Solid (2). Echogenicity: Hyperechoic (1). Shape: Not taller than wide (0). Margins: Ill-defined (0). Echogenic Foci: None (0). ACR TI-RADS total points: 3 ACR TI-RADS category: 3 3. Location: Left inferior. Size: 1.3 x 1.2 x 1.7 cm, volume 1.4 mL. Nodule characteristics: Composition: Solid (2). Echogenicity: Hyperechoic (1). Shape: Not taller than wide (0). Margins: Smooth (0). Echogenic Foci: None (0). ACR TI-RADS total points: 3 ACR TI-RADS category: 3 NODES: No lymphadenopathy is seen in the tissue surrounding the thyroid gland. DXA: 07/30/2022 FINDINGS: AP SPINE L1-L2 (excluding L3 and L4): The data of L1-L4 has been changed to exclude the L3 and L4 vertebral bodies, because hardware at these levels may cause overestimation of lumbar spine density. Current: BMD 0.771 g/cm2, Z-score -1.5, T-score -3.3, osteoporosis, 14.6% increase from previous, 3.1% decrease from baseline (<5% change is not significant). Prior: BMD 0.673 g/cm2. Baseline: BMD 0.796 g/cm2. LEFT FEMUR, NECK: Current: BMD 0.652 g/cm2, Z-score -1.0, T-score -2.8, osteoporosis. Prior: BMD 0.641 g/cm2. Baseline: BMD 0.716 g/cm2. LEFT FEMUR, TOTAL: Current: BMD 0.641 g/cm2, Z-score -1.3, T-score -2.9, osteoporosis, 1.6% increase from previous, 11.8% decrease from baseline (<5% change is not significant). Prior: BMD 0.631 g/cm2. Baseline: BMD 0.727 g/cm2. LEFT FOREARM RADIUS 33%: BMD 0.517 g/cm2, Z-score -2.1, T-score -4.1, osteoporosis. Prior:? Not previously measured. Labs: Laboratory Tests 03/27/22 08:20 Creatinine 1.05 Estimated GFR 52 [facility] Medical History Abnormal SPEP CKD (chronic kidney disease) Common bile duct dilatation Esophageal hernia GERD (gastroesophageal reflux disease) H. pylori duodenitis Hypercholesterolemia Hypertension Insomnia Osteoporosis Thyroid nodule Tubular adenoma of colon Type 2 diabetes mellitus with hyperglycemia Vitamin D deficiency Surgical History History of back surgery S/P epidural steroid injection Status post lumbar spine surgery for decompression of spinal cord H/O: hysterectomy History of partial hysterectomy Family History Father No problems noted. Mother Diabetes Social History Household Members: None Housing: House Are you a primary point of care technician to a significant other at home: No Alcohol intake: never Patient Tobacco Use Status: Never used Tobacco e-Cigarette/Vaping Use: Never Used Second Hand Smoke Exposure: No service: No Current occupational status: retired Cognitive needs: No Hearing needs: No Vision needs: Yes (Glasses) Physical Exam Vital Signs: Last Vital Signs Pulse 99 07/08/23 08:25 BP 132/54 L 07/08/23 08:25 BMI result Body Mass Index 29.3 Absence of Cushingoid features. Absence of acromegalic features. Neck exam reveals nl size thyroid about 15 gms. No thyroid nodules palpable. No carotid bruits present. Lungs CTA. Heart S1 S2, Reg R/R. No M/R/ G. Skin exam reveals absence of vitiligo or acanthosis nigricans. Abdominal exam reveals Soft NT/ND with NA BS. No organomegaly present. Neck Other: . Extrem Other: Visual exam of foot performed. No ulcerations or open lesions. No onchomycosis, no callouses.Pulses 2 + distally Sensation intact to monofilament exam. Vibratory sensation sensed is intact with 128 Hz tuning fork Results AMB Hemoglobin A1c AMB Hemoglobin A1c 6.5 % Last Edit by KAVITA Christensen on 07/08/23 08:44 Results Reviewed Results Reviewed: Laboratory Last Values Glucose (Clinic) 108 mg/dL (60-115) 07/08/23 08:34 Assessment & Plan Assessment & Plan (1) Type 2 diabetes mellitus with hyperglycemia: Code(s): E11.65 - Type 2 diabetes mellitus with hyperglycemia Category: Medical Qualifiers: Diabetes mellitus terminal superintendent insulin use: with half-way use Qualified Code(s): E11.65 - Type 2 diabetes mellitus with hyperglycemia; Z79.4 - truck terminal manager (current) use of insulin Plan: This 72-year-old white female with history of type 2 diabetes being treated with metformin , Mounjaro and basal-bolus insulin poor glycemic control and known microvascular complications namely CKD and neuropathy. Plan is to continue the current therapy. At this point, her glycemic control is optimized considering her age and comorbidities and in terms of the diabetes she returned to the care of her primary care provider I returned back to endocrinology sure HbA1c deteriorate (2) Osteoporosis: Code(s): M81.0 - Age-related osteoporosis without current pathological fracture Category: Medical Plan: Secondary workup was negative except for MGUS. Patient is currently on calcium and vitamin-D with high risk for fracture. My concern is that she had repeated high calciums with high inappropriately normal PTH is suggesting the presence of primary hyperparathyroidism or FH H. Her 24 hour urine collections have been low normal Will recheck calcium, albumin, PTH, 25 hydroxy vitamin-D, 24 hour urine for calcium and creatinine as well as serum creatinine to clarify underlying etiology to see if primary hyperparathyroidism exist or FHh. I would prefer to do this prior to initiating Prolia as if results are consistent with primary hyperparathyroidism would consider surgical exploration. We could consider doing genetic testing to rule out HH if we are not sure based on 24 hour urine. (3) Hyperlipemia: Code(s): E78.5 - Hyperlipidemia, unspecified Plan: As below (4) Hypercholesterolemia: Code(s): E78.00 - Pure hypercholesterolemia, unspecified Category: Medical Plan: LDL is not at goal at atorvastatin 80 mg. Patient states she was only taking 40 mg and now is increased 80 mg We will recheck lipid profile (5) Thyroid nodule: Code(s): E04.1 - Nontoxic single thyroid nodule Category: Medical Plan: Status post FNA of right midpole nodule with benign cytology. We will repeat thyroid ultrasound Orders: Orders Albumin Level Today E83.52 - Hypercalcemia Parathyroid Hormone Intact Today E83.52 - Hypercalcemia AMB Hemoglobin A1c Today E11.65 - Type 2 diabetes mellitus with hyperglycemia, Z13.9 - Encounter for screening, unspecified, Z79.4 - truck terminal manager (current) use of insulin Lipid Panel Today E04.1 - Nontoxic single thyroid nodule, E78.00 - Pure h ypercholesterolemia, unspecified US thyroid Today E04.1 - Nontoxic single thyroid nodule, E04.2 - Nontoxic multinodular goiter, E78.00 - Pure hypercholesterolemia, unspecified Calcium Today E83.52 - Hypercalcemia Creatinine Today E83.52 - Hypercalcemia Vitamin D 25-OH Total Today E83.52 - Hypercalcemia Coding Level of Care Code Est Pt Level 3 (00344) Diagnoses Type 2 diabetes mellitus with hyperglycemia, with long-term current use of insulin E11.65; Z79.4 Diabetes mellitus terminal superintendent insulin use: with terminal superintendent use Osteoporosis M81.0 Hyperlipemia E78.5 Hypercholesterolemia E78.00 Thyroid nodule E04.1
[2023-07-08 08:38] LABS: Glucose, Whole Blood 108 mg/dL (60-115)
== END 2023-07-08 09:16 | disposition home or self-care (01) ==
PROVIDERS: PCP Internal Medicine; Visit Provider Internal Medicine Endocrinology, Diabetes & Metabolism
DX: E11.65 Type 2 diabetes mellitus with hyperglycemia (principal); Z79.4 Long term (current) use of insulin; M81.0 Age-related osteoporosis without current pathological fracture; E78.5 Hyperlipidemia, unspecified; E78.00 Pure hypercholesterolemia, unspecified; E04.1 Nontoxic single thyroid nodule; Z13.9 Encounter for screening, unspecified
CPT/HCPCS: 99213

== ENCOUNTER → 2023-07-08 08:22 | Outpatient (BNVA) | payer MEDICARE, OTHER, SELFPAY | PROVIDERS: PCP Internal Medicine; Visit Provider Internal Medicine Endocrinology, Diabetes & Metabolism | DX: E11.65 Type 2 diabetes mellitus with hyperglycemia (principal); M81.0 Age-related osteoporosis without current pathological fracture; E78.5 Hyperlipidemia, unspecified; E78.00 Pure hypercholesterolemia, unspecified; E04.1 Nontoxic single thyroid nodule; Z79.4 Long term (current) use of insulin | CPT/HCPCS: 82947; 83036; 99212 ==

== ENCOUNTER 2023-07-24 10:19 | Outpatient (REF) | payer MEDICARE, OTHER, SELFPAY ==
--- NOTE | ~2023-07-24 | US_ITS ---
EXAMINATION: US THYROID CLINICAL INFORMATION: Nontoxic multinodular goiter. COMPARISON: Thyroid ultrasound 04/18/2020. TECHNIQUE: Linear transducer grayscale and color Doppler examination with attention to the region of the thyroid. FINDINGS: SIZE: Measurements of the thyroid lobes and nodules are given in sagittal, anteroposterior and transverse dimensions respectively. Right Thyroid Lobe: 5.0 x 1.5 x 1.5 cm, volume 5.9 mL. Previously 4.5 x 1.8 x 1.5 cm, volume 6.4 mL. Parenchyma: The gland echotexture is heterogeneous. Thyroid vascularity is normal. Left Thyroid Lobe: 4.9 x 1.7 x 1.6 cm, volume 7.0 mL. Previously 4.8 x 1.9 x 1.3 cm, volume 6.2 mL. Parenchyma: The gland echotexture is heterogeneous. Thyroid vascularity is normal. Isthmus: 0.7 cm in maximum AP dimension. Previously 0.5 cm. Estimated total number of nodules greater than or equal to 1 cm: 2. Executive Producer nodules are described as follows: 1. Location: Right mid pole. Size: 1.1 x 0.9 x 1.0 cm, volume 0.5 mL. Previously: 1.0 x 0.8 x 0.9 cm, volume 0.4 mL. Nodule characteristics: Composition: Mixed cystic and solid (1). Echogenicity: Very hypoechoic (3). Shape: Not taller than wide (0). Margins: Smooth (0). Echogenic Foci: Punctate echogenic foci (3). ACR TI-RADS total points: 7 Previous: 7 ACR TI-RADS category: 5 Previous: 5 Significant change in size (>/= 20% in 2 dimensions and minimal increase of 2 mm or 50% or greater increase in volume): No Change in features: No Change in ACR TI-RADS risk category: No 2. Location: Left lower pole. Size: 1.9 x 1.4 x 1.9 cm, volume 2.6 mL. Previously: 1.3 x 1.2 x 1.7 cm, volume 1.4 mL. Nodule characteristics: Composition: Solid (2). Echogenicity: Hyperechoic (1). Shape: Not taller than wide (0). Margins: Smooth (0). Echogenic Foci: Punctate echogenic foci (3). ACR TI-RADS total points: 6 Previous: 3 ACR TI-RADS category: 4 Previous: 3 Significant change in size (>/= 20% in 2 dimensions and minimal increase of 2 mm or 50% or greater increase in volume): Yes Change in features: Yes Change in ACR TI-RADS risk category: Yes, increased from 3 to 4. 3. Location: Left lower pole. Size: 0.9 x 0.7 x 0.6 cm, volume 0.18 mL. Previously: Not documented. Nodule characteristics: Composition: Solid (2). Echogenicity: Hyperechoic (1). Shape: Taller than wide (3). Margins: Smooth (0). Echogenic Foci: None (0). ACR TI-RADS total points: 6 ACR TI-RADS category: 4 NODES: No lymphadenopathy is seen in the tissue surrounding the thyroid gland. US/US thyroid IMPRESSION: 1. Multinodular goiter. 2. The 1.1 cm right mid pole nodule and the 1.9 cm left lower pole nodule should undergo biopsy. ACR TI-RADS RECOMMENDATION REFERENCE: Ultrasound-guided fine-needle aspiration, follow up ultrasound, no further followup. * TR1 (0 point) and TR2 (2 points): No FNA or followup * TR3 (3 points): FNA if more than or equal to 2.5 cm in maximum dimension, follow up ultrasound in 1, 3 and 5 years if 1.5 to 2.4 cm in maximum dimension. * TR4 (4-6 points): FNA if more than or equal to 1.5 cm in maximum dimension, follow up ultrasound in 1, 2, 3 and 5 years if 1 to 1.4 cm in maximum dimension. * TR5 (more than or equal to 7 points): FNA if more than or equal to 1 cm in maximum dimension, follow up ultrasound every year for 5 years if 0.5 to 0.9 cm in maximum dimension. * TR3, TR4 or TR5 nodules that are below the size threshold for follow up receive no followup.
== END 2023-07-24 10:20 | disposition home or self-care (01) ==
LOC: HO.US 10:19
PROVIDERS: PCP Internal Medicine; Visit Provider Internal Medicine Endocrinology, Diabetes & Metabolism
DX: E04.2 Nontoxic multinodular goiter (principal); E04.1 Nontoxic single thyroid nodule; E78.00 Pure hypercholesterolemia, unspecified
CPT/HCPCS: 76536

== ENCOUNTER → 2023-10-16 11:46 | Outpatient (RCR) | payer MEDICARE, OTHER, SELFPAY ==
[2020-05-03 09:31] VITALS: BMI 26.6
[2020-05-03 09:35] VITALS: BP 173/73; PULSE 86; RESP 12; TEMP 36.8; O2SAT 98
[2020-05-03 10:05] LABS: MANUAL DIFF FLAG NO
--- NOTE | 2020-05-03 10:10 | MHC.HEMONCMA ---
Patient came in for a consult today, it was booked as a thyroid cancer consult which it turned out to just be a hematology consult for possible MGUS. Patient states she is feeling ok, no concerns at this time. Clinical summary was reviewed and updated. Patient had lab work and will have a telehealth appt in 1 month.
[2020-05-03 10:29] LABS: Basophils Absolute Auto 0.1 X10*3/uL (0.0-0.2); Basophils Percent Auto 0.8 % (0-2); Eosinophils Absolute Auto 0.2 X10*3/uL (0.0-0.4); Eosinophils Percent Auto 2.7 % (0-4); Hematocrit 40.4 % (37-47); Hemoglobin 12.2 g/dl (12.0-16.0); Imm Gran Abs Auto 0.01 X10*3/uL (0.00-0.03); Imm Gran Pct Auto 0.1 % (0.0-0.4); Lymphocytes Absolute Auto 3.1 X10*3/uL (1.2-4.9); Lymphocytes Percent Auto 42.8 % (20-40); Mean Corpuscular HGB Conc 30.2 g/dl (31.0-35.0); Mean Corpuscular Hemoglobin 22.9 pg (27.0-33.0); Mean Corpuscular Volume 75.9 fL (80-98); Mean Platelet Volume 9.6 fL (9.4-12.3); Monocytes Absolute Auto 0.4 X10*3/uL (0.1-1.2); Monocytes Percent Auto 5.9 % (2-11); Neutrophils Absolute Auto 3.4 X10*3/uL (2.0-8.3); Neutrophils Percent Auto 47.7 % (45-73); Platelet Count 375 X10*3/uL (160-400); Red Blood Count 5.32 X10*6/uL (4.20-5.50); Red Cell Distribution Width 14.5 % (11.0-16.0); White Blood Count 7.1 X10*3/uL (4.8-10.8)
[2020-05-03 11:06] LABS: Iron 71 mcg/dL (30-160); Percent Iron Saturation 20 % (15-50); Total Iron Binding Capacity 363 mcg/dL (228-428); Unsaturated Iron Binding 292 ug/dL
--- NOTE | 2020-05-03 12:04 | PM.HEMONCCN ---
Subjective - Subjective Chief complaint: Abnormal blood test Consult date: 05/03/20 Requesting Physician: Dr. De Primary Care Provider: Ailyn Garzon MD HPI - Consult Narrative Reason for consult: Abnormal serum protein electrophoresis Narrative: Mckenna Hancock is a 69 year old female of [place] descent who has been referred for evaluation of abnormal protein electrophoresis. She has a history of osteoporosis as well as thyroid nodules, poorly controlled diabetes for which she is followed closely by Endocrinology. In the last year her sugars have been rather out of control and she has lost significant amount of weight. She has pain in her small joints from arthritis but denies any fractures. She denies loss of appetite, fatigue, fever or chills. She has not been told of anemia in the past or elevated platelets. Review of Systems - Constitutional Reports no additional constitutional complaints, Denies fever(s), Denies lack of energy, Denies night sweats, Denies poor appetite, Denies weakness, Reports weight loss - Cardiovascular Reports no additional cardiovascular complaints - Respiratory Reports no additional respiratory complaints - Gastrointestinal Reports no additional gastrointestinal complaints Oncology Screenings - ECOG Performance Status ECOG Performance Status: 1 [facility] Medical History: Medical History (Last Updated 04/24/20 @ 08:12 by Cadence Rajan DO) Abnormal SPEP Common bile duct dilatation Esophageal hernia GERD (gastroesophageal reflux disease) H. pylori duodenitis HLD (hyperlipidemia) Hypercholesterolemia Hypertension Insomnia Osteoporosis Thyroid nodule Tubular adenoma of colon Type 2 diabetes mellitus with hyperglycemia Vitamin D deficiency Family History: Family History (Last Reviewed 04/19/20 @ 14:38 by Cadence Rajan DO) Father No problems noted. Mother Diabetes Surgical History: Surgical History (Last Reviewed 04/19/20 @ 13:44 by Cadence Rajan DO) H/O: hysterectomy History of back surgery History of partial hysterectomy S/P epidural steroid injection Status post lumbar spine surgery for decompression of spinal cord Social History: Social History (Last Updated 05/03/20 @ 09:40 by Mallory Bland) Living Situation History: Are you a primary care management coordinator to a significant other at home: No Alcohol History: Alcohol intake: never Alcohol History Details: Alcohol intake frequency: does not drink Tobacco History: Smoking Status: Never smoker Substance Use History: Use of substances other than those prescribed or required for medical reasons: No Domestic Abuse History: Have you been hit, kicked, punched, or otherwise hurt by someone within the past year? If so, by whom?: No Do you feel safe in your current relationship?: No Healthcare Practices: [facility] Practices: [employer] Nutrition Assessment: Recently lost weight without trying: Yes How much weight loss: 34pounds or more Eating poorly because of decreased appetite: No Nutrition screen score: 6 Nutrition Risks: No Nutritional Risk Patient : No : No Poor oral hygiene: No Smoking status: Never smoker Home Medications and Allergies Home Medications Medication Instructions Recorded Confirmed Type aspirin 81 mg tablet,delayed 81 mg PO DAILY 11/23/19 05/03/20 History release ferrous sulfate 325 mg (65 mg 325 mg PO DAILY 11/23/19 05/03/20 History iron) tablet insulin detemir U-100 100 unit/mL 28 unit SUBCUT DAILY ml 02/17/20 05/03/20 History (3 mL) subcutaneous pen pen needle, diabetic 32 gauge x #50 ea 02/17/20 05/03/20 History Allergies Allergy/AdvReac Type Severity Reaction Status Date / Time dulaglutide [From [facility] [address] [facility]] AdvReac Intermediate nausea Verified 04/19/20 14:38 glipizide AdvReac Intermediate patient Verified 04/19/20 14:38 Physical Exam Vital signs: Vital Signs Temp 98.3 F 05/03/20 09:35 Pulse 86 05/03/20 09:35 Resp 12 05/03/20 09:35 BP 173/73 H 05/03/20 09:35 Pulse Ox 98 05/03/20 09:35 Intake & Output 05/02/20 05/03/20 05/03/20 18:59 06:59 18:59 Other: Weight 63.8 kg Weight in Grams [id number] Weight 63.8 kg - Constitutional Present: no acute distress, average body habitus - Routine HEENT Exam Head: Present: normal inspection Eye: Present: EOMI, PERRL - Routine Neck Exam Present: supple. Absent: lymphadenopathy - Routine Respiratory Exam Present: CTAB - Routine Cardiovascular Exam Cardiovascular: Present: S1, S2 - Routine Abdominal Exam Present: soft - Routine Extremities Exam Present: normal inspection - Routine Skin Exam Absent: cyanosis, erythema - Routine Neurological Exam Present: alert. Absent: motor deficit Hem/Onc Consult Result - Labs CBC & Chem 7: 05/03/20 10:02 Labs: Short CBC 05/03/20 Range/Units 10:02 WBC 7.1 (4.8-10.8) X10*3/uL Hgb 12.2 (12.0-16.0) g/dl Hct 40.4 (37-47) % Plt Count 375 (160-400) X10*3/uL Assessment and Plan (1) Abnormal SPEP Status: Acute 1. This is a 69-year-old woman with past medical history significant for diabetes, mild hypercalcemia and osteoporosis referred for evaluation of abnormal serum protein electrophoresis. She does not have anemia or renal dysfunction. Serum immunofixation has been ordered. Free kappa/lambda light chain assay and ratio is pending. Workup for plasma cell dyscrasia is warranted and has been submitted. 2. Chronic thrombocytosis dating back to 2018. Platelets today are normal however she has had elevated platelets for several years. She does not have iron deficiency or anemia. She has chronic low MCV suggestive of thalassemia trait. JAK2 mutation to rule out myeloproliferative disease has been submitted. Follow-up in 1 month. I thank you very much for this consultation.
[2020-05-04 21:11] LABS: Kappa Light Chain, Free Serum 24.2 mg/L (3.3-19.4); Kappa/Lambda Lt Ch Free Ratio 1.25 (0.26-1.65); Lambda Light Chain, Free Serum 19.4 mg/L (5.7-26.3)
[2020-05-08 12:36] LABS: IgA 308 mg/dL (70-320); IgG 1109 mg/dL (600-1540); IgM 53 mg/dL (50-300)
== END | disposition home or self-care (01) ==
LOC: HO.ONC 05-03 09:22
PROVIDERS: PCP Internal Medicine; Visit Provider Internal Medicine
DX: R77.8 Other specified abnormalities of plasma proteins (principal); D47.3 Essential (hemorrhagic) thrombocythemia
CPT/HCPCS: 36415; 81219; 81270; 81279; 81339; 82784; 83520; 83540; 85025; 86334; 99204

== ENCOUNTER 2023-10-30 09:36 | Outpatient (AMB) | payer MEDICARE, OTHER, SELFPAY ==
[2023-10-30 10:04] VITALS: BP 130/68; PULSE 77; O2SAT 97; BMI 29.1
--- NOTE | 2023-10-30 10:04 | MHC.PC.OV ---
Vital Signs 10/30/23 10:04 Height 5 ft 1 in Weight 154 lb BMI 29.1 BP 130/68 Blood Pressure Location Lt brachial Position Sitting Pulse 77 Pulse Source Pulse Oximeter Pulse Oximetry (%) 97 Oxygen Delivery Method Room Air Intake Visit Reasons: Rsched from 10/05 see coments on 10/05 Allergies dulaglutide [From Trulicity] Adverse Reaction (Intermediate, Verified 10/30/23 10:04) nausea glipizide Adverse Reaction (Intermediate, Verified 10/30/23 10:04) patient Tobacco use date assessed: 05/09/23 Fall risk assessment: No Falls in past year Last assessed Fall Risk: 10/30/23 Dental Screening Dental Screen Date: 10/30/23 Did you have a dental visit in the last 12 months?: Yes Did you have a dental problem in the last 6 months where you did not have access to dental care?: No Was dental information given to patient?: Patient has dentist HPI Rsched from 10/05 see coments on 10/05 HPI Details 73-year-old overweight female with uncontrolled diabetes mellitus hypertension hypercholesterolemia GERD chronic kidney disease MGUS coming in for follow-up. Last seen in April 2023. Patient is up-to-date with colonoscopy July 2023 bone density and mammogram. Patient had ultrasound of the thyroid done in July showing multinodular goiter. Has been seen by Endocrinology and will continue to monitor. Has had biopsy benign. As for the MGUS this is being followed up by hematology oncology. cough in am months 2 , noted a R posterior scalp cyst and discussed about changes - patient complains of morning cough and denies any fever nor shortness of breath. Discussed concerns on cough regarding allergy asthma and reflux as the most common cause but will do a chest x-ray. Also noted history of iron deficiency anemia will test blood work with this. Had a long discussion again with regards to diet and exercise to help this diabetes to be under control. Patient does admit to be noncompliant with the medication into take only as needed has had a trip in another country and has been indiscriminately eating . FOR[facility]LY [facility], [facility] Medical History Abnormal SPEP CKD (chronic kidney disease) Common bile duct dilatation Esophageal hernia GERD (gastroesophageal reflux disease) H. pylori duodenitis Hypercholesterolemia Hypertension Insomnia Osteoporosis Thyroid nodule Tubular adenoma of colon Type 2 diabetes mellitus with hyperglycemia Vitamin D deficiency Surgical History History of back surgery S/P epidural steroid injection Status post lumbar spine surgery for decompression of spinal cord H/O: hysterectomy History of partial hysterectomy Family History Father No problems noted. Mother Diabetes Social History Household Members: None Housing: House Are you a primary child day care center worker to a significant other at home: No Alcohol intake: never Patient Tobacco Use Status: Never used Tobacco Tobacco use type: Cigarette e-Cigarette/Vaping Use: Never Used Second Hand Smoke Exposure: No service: No Current occupational status: retired Cognitive needs: No Hearing needs: No Vision needs: Yes (Glasses) Questionnaire PHQ-9 Over the last 2 weeks, how often have you been bothered by any of the following problems? 1. Little interest or pleasure in doing things: not at all 2. Feeling down, depressed, or hopeless: not at all 3. Trouble falling or staying asleep, or sleeping too much: not at all 4. Feeling tired or having little energy: not at all 5. Poor appetite or overeating: not at all 6. Feeling bad about yourself - or that you are a failure or have let yourself or your family down: not at all 7. Trouble concentrating on things, such as reading the newspaper or watching television: not at all 8. Moving or speaking so slowly that other people could have noticed. Or the opposite - being so fidgety or restless that you have been moving around a lot more than usual: not at all 9. Thoughts that you would be better off or of hurting yourself in some way: not at all Total score: 0 Depression Screening Interpretation: Negative Depression Screening Done: Yes Source: Developed by Drs. Luis Grewal, Keysha Monreal, Edgar Bernardo and colleagues, with an educational rachana from [employer]. Thrive Questionnaire Date Thrive assessed: 05/09/23 AUDIT C Alcohol Use Questionnaire (AUDIT-C) 1. How often do you have a drink containing alcohol?: Never Total Score: 0 NASRA-7 AMB Questionnaire NASRA-7 Date NASRA - 7 assessed: 05/09/23 Source: Developed by DrsBrandon Grewal, Keysha Monreal, Edgar Bernardo and colleagues, with an educational rachana from [employer]. Physical exam (Primary Care) Vital Signs: Last Vital Signs Pulse 77 10/30/23 10:04 BP 130/68 10/30/23 10:04 Pulse Ox 97 10/30/23 10:04 Oxygen Delivery Method Room Air 10/30/23 10:04 Care Plan Goal for BP management: feet exam - pulse is good, no bruised BMI result Body Mass Index 29.1 Tobacco/Smoking Status: Tobacco use Status Tobacco use date assessed 05/09/23 10/30/23 10:05 Patient Tobacco Use Status Never used Tobacco 10/30/23 10:05 Tobacco use type Cigarette 10/30/23 10:05 e-Cigarette/Vaping Use Never Used 10/30/23 10:05 PHQ-9: PHQ-9 Score PHQ-9: Total score 0 10/30/23 10:23 Depression Screening Interpretation: Negative Thrive Assessment: Date of Thrive Assessment Date Thrive assessed 05/09/23 10/30/23 10:05 Const General: alert; No acute distress Eyes Conjunctivae: conjunctivae normal Resp Auscultation: clear to auscultation bilaterally Cardio Rate: regular rate Rhythm: regular rhythm GI Inspection: Yes normal to inspection Extrem General: Yes normal to inspection and No edema Results AMB Hemoglobin A1c AMB Hemoglobin A1c 7.9 % Last Edit by Mariel Ingram CMA on 10/30/23 10:23 Results Reviewed Results Reviewed: Laboratory Last Values Hgb A1c (Clinic) 7.9 % (4.0-6.0) H 10/30/23 10:05 Assessment and Plan Assessment & Plan (1) Type 2 diabetes mellitus with hyperglycemia: Comment: Dr. Villalta and Edith Code(s): E11.65 - Type 2 diabetes mellitus with hyperglycemia Qualifiers: Diabetes mellitus manager fleet insulin use: with manager fleet use Qualified Code(s): E11.65 - Type 2 diabetes mellitus with hyperglycemia; Z79.4 - residential (current) use of insulin Plan: Decrease the amount of carbohydrate intake, pasta, bread, rice and potatoes are all sugar and that is aside from all the sweet stuff, remember that fruits are good but they are Sweet also. Hemoglobin A1c goal of less than 7.0 patient is being followed up by Endocrinology has insulin 10 units 3 times a day and Tresiba of 30 units once a day metformin a 1000 mg twice a day and Mounjaro (2) Hypertension: Code(s): I10 - Essential (primary) hypertension Qualifiers: Hypertension type: essential hypertension Qualified Code(s): I10 - Essential (primary) hypertension Plan: Continue with blood pressure medication. Decrease salt intake and exercise takes losartan 100 mg once a day amlodipine 5 mg once a day (3) Hypercholesterolemia: Code(s): E78.00 - Pure hypercholesterolemia, unspecified Plan: Avoid fried foods, chicken skin, eggs, butter margarine, pastries and meat. Be it pork or beef they have a lot of cholesterol LDL goal of less than 100 and on atorvastatin 80 mg will once a day and retest (4) GERD (gastroesophageal reflux disease): Code(s): K21.9 - Gastro-esophageal reflux disease without esophagitis Plan: Avoid the foods that causes that usually spicy foods, tomato products, juices, coffee, soda and foods that your sensitive to. After eating do not lie down, allow 3-4 hours before in lie down. And keep the head of bed above 30 degrees to avoid the acid from going up. (5) Osteoporosis: Code(s): M81.0 - Age-related osteoporosis without current pathological fracture Plan: Patient follows up with endocrinology and bone density is up-to-date (6) Cough: Code(s): R05.9 - Cough, unspecified Orders: Orders Complete Blood Count Auto Diff Today E11.65 - Type 2 diabetes mellitus with hyperglycemia, Z79.4 - residential (current) use of insulin Lipid Panel Today E11.65 - Type 2 diabetes mellitus with hyperglycemia, E78.00 - Pure hypercholesterolemia, unspecified, Z79.4 - chemistry associate (current) use of insulin Calcium, 24 Hr Ur Today E83.52 - Hypercalcemia Parathyroid Hormone Intact Today E83.52 - Hypercalcemia XR chest 2V Today R05.9 - Cough, unspecified AMB Hemoglobin A1c Today Z13.9 - Encounter for screening, unspecified Comprehensive Met. Panel Today E11.65 - Type 2 diabetes mellitus with hyperglycemia, Z79.4 - residential (current) use of insulin Free T4 (Free Thyroxine) Today E11.65 - Type 2 diabetes mellitus with hyperglycemia, Z79.4 - chemistry associate (current) use of insulin Thyroid Stimulating Hormone Today E11.65 - Type 2 diabetes mellitus with hyperglycemia, Z79.4 - chemistry associate (current) use of insulin Vitamin B12 and Folate Today E11.65 - Type 2 diabetes mellitus with hyperglycemia, Z79.4 - chemistry associate (current) use of insulin Calcium Today E83.52 - Hypercalcemia Albumin Level Today E83.52 - Hypercalcemia Creatinine, 24 Hr Group Today E83.52 - Hypercalcemia Ferritin Today R05.9 - Cough, unspecified Reticulocyte Count Today R05.9 - Cough, unspecified IRON PROFILE Today R05.9 - Cough, unspecified Coding Level of Care Code Est Pt Level 4 (41515) Diagnoses Type 2 diabetes mellitus with hyperglycemia, with long-term current use of insulin E11.65; Z79.4 Diabetes mellitus halfway insulin use: with halfway use Essential hypertension I10 Hypertension type: essential hypertension Hypercholesterolemia E78.00 GERD (gastroesophageal reflux disease) K21.9 Osteoporosis M81.0 Cough R05.9
== END 2023-10-30 10:57 | disposition home or self-care (01) ==
PROVIDERS: PCP Internal Medicine; Visit Provider Internal Medicine
DX: E11.65 Type 2 diabetes mellitus with hyperglycemia (principal); Z79.4 Long term (current) use of insulin; I10 Essential (primary) hypertension; E78.00 Pure hypercholesterolemia, unspecified; K21.9 Gastro-esophageal reflux disease without esophagitis; M81.0 Age-related osteoporosis without current pathological fracture; R05.9 Cough, unspecified
CPT/HCPCS: 83036; 99214

== ENCOUNTER 2023-11-10 06:08 | Outpatient (REF) | payer MEDICARE, OTHER, SELFPAY ==
--- NOTE | ~2023-11-10 | XR_ITS ---
EXAMINATION: XR CHEST CLINICAL INFORMATION: Cough. COMPARISON: May 10, 2023 TECHNIQUE: 2 views of the chest were obtained. FINDINGS: The lungs are well expanded. No focal consolidation. No pleural effusion. Cardiac silhouette is unchanged. Hiatal hernia. XR/XR chest 2V IMPRESSION: No acute abnormality. Electronically signed by: Donavan Armijo MD 11/10/2023 09:24 AM EDT RP
[2023-11-10 06:44] LABS: MANUAL DIFF FLAG NO
[2023-11-10 07:50] LABS: Basophils Absolute Auto 0.1 X10*3/uL (0.0-0.2); Basophils Percent Auto 0.8 % (0-2); Eosinophils Absolute Auto 0.3 X10*3/uL (0.0-0.4); Eosinophils Percent Auto 4.1 % (0-4); Hematocrit 41.7 % (37.0-47.0); Hemoglobin 12.6 g/dl (12.0-16.0); Imm Gran Abs Auto 0.01 X10*3/uL (0.00-0.03); Imm Gran Pct Auto 0.2 % (0.0-0.4); Immature Retic Fraction 6.9 % (3.0-15.9); Lymphocytes Absolute Auto 2.1 X10*3/uL (1.2-4.9); Lymphocytes Percent Auto 32.3 % (20-40); Mean Corpuscular HGB Conc 30.2 g/dl (31.0-35.0); Mean Corpuscular Hemoglobin 22.9 pg (27.0-33.0); Mean Corpuscular Volume 75.7 fL (80.0-98.0); Mean Platelet Volume 9.6 fL (9.4-12.3); Monocytes Absolute Auto 0.4 X10*3/uL (0.1-1.2); Monocytes Percent Auto 6.9 % (2-11); Neutrophils Absolute Auto 3.6 x10*3/uL (2.0-8.3); Neutrophils Percent Auto 55.7 % (45-73); Platelet Count 393 X10*3/uL (160-400); Red Blood Count 5.51 X10*6/uL (4.20-5.50); Red Cell Distribution Width 16.3 % (11.0-16.0); Retic HGB Equivalent 25.5 pg (30.0-35.0); Reticulocyte Percent 1.6 % (0.5-1.8); Reticulocytes Absolute 0.086 X10*6/uL (0.026-0.095); White Blood Count 6.4 X10*3/uL (4.8-10.8)
[2023-11-10 08:24] LABS: Parathyroid Hormone Intact 66.3 pg/mL (8.7-77.1)
[2023-11-10 08:27] LABS: Vitamin D 25-OH Total 44.2 ng/mL (>30)
[2023-11-10 08:32] LABS: Alanine Aminotransferase 29 U/L (0-31); Albumin Level 4.2 g/dL (3.5-5.0); Alkaline Phosphatase 85 U/L (39-117); Anion Gap 14 (12-20); Aspartate Amino Transferase 21 U/L (5-31); Bilirubin Total 0.3 mg/dL (0.0-1.0); Blood Urea Nitrogen 22 mg/dL (9-16); Calcium 10.2 mg/dL (8.4-10.2); Carbon Dioxide 25 mmol/L (22-29); Chloride 107 mmol/L (96-108); Cholesterol 219 mg/dL (<200); Estimated Glomerular Filt Rate 52; Glucose Random 169 mg/dL (60-115); HDL Cholesterol 58 mg/dL (>40); Iron 57 mcg/dL (30-160); LDL Cholesterol Calculated 137 mg/dL (<100); Percent Iron Saturation 19 % (15-50); Potassium 4.8 mmol/L (3.3-5.1); Sodium 141 mmol/L (135-145); Total Iron Binding Capacity 305 mcg/dL (228-428); Triglycerides 122 mg/dL (<150); Unsaturated Iron Binding 248 ug/dL
[2023-11-10 08:37] LABS: Ferritin 50 ng/mL (10-250); Free T4 (Free Thyroxine) 0.91 ng/dL (0.71-1.85); Thyroid Stimulating Hormone 1.37 uIU/mL (0.32-4.0)
[2023-11-10 09:15] LABS: Folate 8.5 ng/mL (> or = 4.0); Vitamin B12 > 2000 pg/mL (200-900)
== END 2023-11-10 06:09 | disposition home or self-care (01) ==
LOC: HO.LAB 06:08
PROVIDERS: Internal Medicine Endocrinology, Diabetes & Metabolism; PCP Internal Medicine; Visit Provider Internal Medicine
DX: E11.65 Type 2 diabetes mellitus with hyperglycemia (principal); Z79.4 Long term (current) use of insulin; E83.52 Hypercalcemia; E78.00 Pure hypercholesterolemia, unspecified; R05.9 Cough, unspecified
CPT/HCPCS: 36415; 71046; 80053; 80061; 82306; 82607; 82728; 82746; 83540; 83970; 84439; 84443; 85025; 85045

== ENCOUNTER 2023-11-29 10:01 | Outpatient (REF) | payer MEDICARE, OTHER, SELFPAY ==
[2023-11-29 11:27] LABS: Appearance Urine Clear; Color Urine Yellow; Glucose Urine UA Negative (Negative); Leukocyte Esterase Urine Small (1+) (Negative); Nitrite Urine Negative (Negative); PH 5.5 (5.0-9.0); Specific Gravity - Urine <= 1.005 (1.005-1.025); UMIC TRIGGER UACC YES; Urine Blood Negative (Negative); Urine Ketones Negative (Negative); Urine Protein Negative (Neg-Trace)
[2023-11-29 11:44] LABS: Bacteria Urine None Seen (None Seen); Hyaline Casts Urine 0-2 /LPF (0-2); RBC Urine 0-2 /HPF (0-2); Squamous Epithelial Cell Urine 0-2 /HPF (0-2); UACC Culture Trigger YES; WBC Urine 0-5 /HPF (0-5)
== END 2023-11-29 10:02 | disposition home or self-care (01) ==
LOC: HO.LAB 10:01
PROVIDERS: PCP Internal Medicine; Visit Provider Internal Medicine
DX: E83.52 Hypercalcemia (principal); R30.0 Dysuria
CPT/HCPCS: 81001; 87086

== ENCOUNTER 2024-01-07 12:53 | Outpatient (REF) | payer MEDICARE, OTHER, SELFPAY ==
--- NOTE | ~2024-01-07 | MM_ITS ---
EXAMINATION: MM SCREENING DIGITAL BREAST TOMOSYNTHESIS, BILATERAL CLINICAL INFORMATION: Screening. Asymptomatic. COMPARISON: Mammography: Comparison is made with available priors TECHNIQUE: Digital breast mammography with tomosynthesis is performed in both the craniocaudal and mediolateral oblique views along with computer-aided detection (CAD). FINDINGS: There are scattered areas of fibroglandular density (ACR BI-RADS breast composition Category b). There are no significant masses, abnormal calcifications, or other abnormalities. MM/MM tomosynthesis screening BI IMPRESSION: No mammographic evidence of malignancy. ASSESSMENT: BI-RADS BI-RADS 1 - Negative RECOMMENDATION: Routine annual mammography screening. 1 year F/U This examination should not preclude the clinical evaluation of a suspicious palpable abnormality. This patient's information was entered into a reminder system with a target due date for their next mammogram. Electronically signed by: Opal Key DO 01/19/2024 09:05 AM ARABELLA
== END 2024-01-07 12:54 | disposition home or self-care (01) ==
LOC: HO.MAMMO 12:53
PROVIDERS: PCP Internal Medicine; Visit Provider Internal Medicine
DX: Z12.31 Encounter for screening mammogram for malignant neoplasm of breast (principal)
CPT/HCPCS: 77063; 77067

== ENCOUNTER → 2024-01-07 13:00 | Outpatient (BNV) | payer MEDICARE, OTHER, SELFPAY | PROVIDERS: PCP Internal Medicine; Visit Provider Internal Medicine | DX: Z12.31 Encounter for screening mammogram for malignant neoplasm of breast (principal) | CPT/HCPCS: 77063; 77067 ==

== ENCOUNTER 2024-02-05 11:26 | Outpatient (REF) | payer MEDICARE, OTHER, SELFPAY ==
[2024-02-05 14:01] LABS: Creatinine, 24Hr Urine 0.6 G/Day (1.0-2.0); Total Volume 24 Hour Urine 1800 mL
[2024-02-06 17:24] LABS: Calcium, 24 Hr Urine 16 mg/24 h; Calcium/Creatinine Ratio 28 mg/g creat (30-275); Creatinine 24Hr Urine 0.58 g/24 h (0.50-2.15)
== END 2024-02-05 11:27 | disposition home or self-care (01) ==
LOC: HO.LNP 11:26
PROVIDERS: PCP Internal Medicine; Visit Provider Internal Medicine Endocrinology, Diabetes & Metabolism
DX: E11.65 Type 2 diabetes mellitus with hyperglycemia (principal); E78.00 Pure hypercholesterolemia, unspecified; Z79.4 Long term (current) use of insulin; M81.0 Age-related osteoporosis without current pathological fracture; E78.5 Hyperlipidemia, unspecified; E04.1 Nontoxic single thyroid nodule
CPT/HCPCS: 82340; 82570; 82947; 83036; 99212

== ENCOUNTER 2024-02-05 11:26 | Outpatient (AMB) | payer MEDICARE, OTHER, SELFPAY ==
--- OUTSIDE RECORDS SUMMARY | 2024-02-05 11:29 | XMS_ITS | Data Portability ---
Author Organization [facility] [place], [facility] Address [address] [place] [phone] Care Team Providers Care Reconstructive Surgeon Name Role Phone DAVID NOGUERA Urologist FABRICIO RUBIO Primary Care Provider Assessment Encounter Date Assessment Date Assessment LastModified by Organization Details LastModified Time 02/05/2019 02/05/2019 Pelvic pain Bacteriuria H and p and ROS reviewed. All new labs and diagnostic xrays reviewed. Physical exam performed. Decision to continue FU made. Diagnostic tests ordered This consult lasted more than 50 minutes and >50% was spent in discussion and review of records rigo Not available 02/05/2019 09:27:24 Plan of Treatment Reminders Order Date Submit Date Provider Last Modified By Organization Details Last Modified Time Details Appointments None recorded. Lab culture, urine + sensitivit y 2018 019 SWAPNA Not available 9 09:07:34 cytology, urine 2018 SWAPNA Not available 0 12:40:39 urinalysis , dipstick, auto 2018 019 rigo [facility] [place], [address] [place] [address], [facility] [address], [place], [phone], 9 09:26:31 Referral None recorded. Procedures None recorded. Surgeries None recorded. Imaging None recorded. Medication Orders None recorded. Patient TargetsNo targets recorded. Patient Instructions Encounter Date Encounter Id Patient Instructions Last Modified By Organization Details Last Modified Time 02/05/2019 [id number] A healthy lifestyle: care instructions rigo Not available 02/05/2019 09:26:31 abdominal pain: care instructions [email or web address] Not available 02/05/2019 09:26:31 Reason for Referral None Reported. Results Created Date Observation Date Name Description Value Unit Range Abnormal Flag Note LastModifiedBy Organization Detail LastModifiedTime 02/06/20 19 02/05/2019 urina lysis , dipst ick, auto Unknown Analyte 2+ Not Available [facility] [address], [id number], 02/05/2019 09:17:47 02/06/20 19 02/05/2019 urina lysis , dipst ick, auto Unknown Analyte negati ve Not Available [facility] [address], [address], 02/05/2019 09:17:47 02/06/20 19 02/05/2019 urina lysis , dipst ick, auto Unknown Analyte Negati ve Not Available [facility] [address], [address], 02/05/2019 09:17:47 02/06/20 19 02/05/2019 urina lysis , dipst ick, auto Unknown Analyte 5 Not Available [facility] [address], [address], 02/05/2019 09:17:47 02/06/20 19 02/05/2019 urina lysis , dipst ick, auto Unknown Analyte Trace Not Available [facility] [address], [address], 02/05/2019 09:17:47 02/06/20 19 02/05/2019 urina lysis , dipst ick, auto Unknown Analyte 1.025 Not Available [facility], [address], 02/05/2019 09:17:47 02/06/20 19 02/05/2019 urina lysis , dipst ick, auto Unknown Analyte Negati ve Not Available [facility] [place] [address], [address], 02/05/2019 09:17:47 02/06/20 19 02/05/2019 urina lysis , dipst ick, auto Unknown Analyte Negati ve Not Available [facility] [place] [address], [address], 02/05/2019 09:17:47 02/06/20 19 02/05/2019 urina lysis , dipst ick, auto Unknown Analyte Negati ve Not Available [facility] [place] [address], [address], 02/05/2019 09:17:47 02/04/20 19 12/03/2018 CT, abdom en + pelvi s, w/wo contr ast No observ ation record ed. [email or web address] Not Available 2018 18:13:50 Result Notes None recorded. Problems Name Problem SNOMED Code Status Onset Date Resolution Date Notes Provider Name and Address Organization Details Recorded Time Pain in pelvis 95569453 Active 2018 David Noguera MD [address] [place] [address], [phone], [facility] 9 08:28:19 Left lower quadrant pain 563199852 Active 2018 David Noguera MD [address] [place] [address], [phone], [facility] 9 08:28:40 Problem Notes None recorded. Procedures Surgical History Date Name Laterality Status Provider Name and Address Organization Details Recorded Time hysterectomy completed Wendy Lopez [facility] 02/05/2019 08:23:53 Imaging Results Imaging Date Name Status LastModified by Organiz ation Details LastModified Time 12/03/2018 CT, abdomen + pelvis, w/wo contrast completed [email or web address] Information not available 02/03/2019 18:13:50 Procedure Notes None recorded. Medical Equipment None Reported. Allergies No known drug allergies Medications Name Sig Start Date Stop Date Status Note LastModified by Organization Details LastModified Time atorvastati n 80 mg tablet 02/05 completed Not Available Not Available Not Available nystatin 100,000 unit/gram topical ointment 02/05 completed Not Available Not Available Not Available meloxicam 15 mg tablet active Not Available Not Available Not Available glipizide 10 mg tablet active Not Available Not Available Not Available amlodipine 2.5 mg tablet active Not Available Not Available Not Available ciprofloxac in 250 mg tablet 02/05 completed Not Available Not Available Not Available amlodipine 5 mg tablet 02/05 completed Not Available Not Available Not Available simvastatin 80 mg tablet Take by oral route. active Not Available Not Available No t Available doxepin 10 mg capsule 02/05 completed Not Available Not Available Not Available sulfamethox azole 800 mg-trimetho prim 160 mg tablet active Not Available Not Available Not Available tamsulosin 0.4 mg capsule active Not Available Not Available Not Available meclizine 25 mg tablet 02/05 completed Not Available Not Available Not Available ferrous sulfate 325 mg (65 mg iron) tablet TAKE 1 TABLET BY MOUTH TWICE A DAY active Not Available Not Available No t Available metformin 1,000 mg tablet active Not Available Not Available Not Available promethazin e 25 mg tablet active Not Available Not Available Not Available zolpidem 5 mg tablet active Not Available Not Available No t Available metoprolol succinate ER 25 mg tablet,exte nded release 24 hr 02/05 completed Not Available Not Available Not Available levofloxaci n 500 mg tablet 02/05 completed Not Available Not Available Not Available losartan 100 mg tablet active Not Available Not Available Not Available naproxen 500 mg tablet active Not Available Not Available Not Available Adult Low Dose Aspirin 81 mg tablet,simón yed release Take 1 tablet every day by oral route. active Not Available Not Available No t Available FreeStyle Lite Strips USE DIRECTED TO TEST BLOOD SUGARS 2X/DAY. DX E11.65 90 DAY SUPPLY active Not Available Not Available No t Available BD Ultra-Fine Octavia Pen Needle 32 gauge x 5/32 active Not Available Not Available Not Available Levemir FlexTouch U-100 Insulin 100 unit/mL (3 mL) subcutaneou s pen active Not Available Not Available Not Available Trulicity 1.5 mg/0.5 mL subcutaneou s pen injector 02/05 completed Not Available Not Available Not Available Vitals Date Recorded Body height Body mass index (BMI) Body weight Heart rate Systolic blood pressure Diastolic blood pressure Provider Name and Address Organization Details Last Updated DateTime 9 157.48 cm 27.1 kg/m2 92716.6 7 g 92 /min 140 mm[Hg] 87 mm[Hg] Wendy Lopez [facility] 9 08:15:46 Social History Question Answer Notes LastModified by Organizat ion Details LastModified Time Tobacco Smoking Status Never Smoker Wendy Lopez [facility] 02/05/2019 08:21:53 Do You Have An Advance Directive? No Healthcare Proxy Hossein Hancock (son) Information not available 02/05/2019 What Is Your Level Of Alcohol Consumption? None Information not available 02/05/2019 What Is Your Level Of Caffeine Consumption? Occasional Max 2 Cups Daily Information not available 02/05/2019 How Much Tobacco Do You Chew? None Information not available 02/05/2019 Which Illicit Or Recreational Drugs Have You Used? None Information not available 02/05/2019 Do You Or Have You Ever Used E-cigarettes Or Vape? Never Used Electronic Cigarettes Information not available 02/05/2019 Are There Any Guns Present In Your Home? No Information not available 02/05/2019 Seat Belts Used Routinely Yes Information not available 02/05/2019 Do You Or Have You Ever Used Smokeless Tobacco? Never Used Smokeless Tobacco Information not available 02/05/2019 How Much Tobacco Do You Smoke? No Information not available 02/05/2019 General Stress Level Medium Information not available 02/05/2019 Do You Use Sunscreen Routinely? Yes Information not available 02/05/2019 How Many Years Have You Smoked Tobacco? 0 Information not available 02/05/2019 Sex: Unknown Functional Status Question Answer Note LastModified by Organizat ion Details LastModified Time Urinary incontinence assessment performed? Yes Information not available 02/05/2019 What is your exercise level? Occasional Information not available 02/05/2019 Mental Status None recorded. Family History Relationship Description Onset Age of this Age Resolved Age Notes LastModified by Organization Details LastModified Time Mother Diabetes mellitus Type 2 [email or web address] Not available 2018 08:21:44 Medical History Condition Response Diabetes Y High Cholesterol (Hyperlipidemia) Y Gynecological HistoryNo gynecological history recorded. Obstetrics History GPAL:G 0 P 0 0 0 0 Past Encounters Encounter ID Performer Location Encounter Start Date Encounter Closed Date Diagnosis/Indication Diagnosis SNOMED-CT Code Diagnosis ICD10 Code [id number] Rich Noguera MD [facility] [address] [facility] [address] [place] [address] 02/05/2019 07:56:41 02/05/2019 09:09:23 Pain in pelvis 34015765 R10.2 Left lower quadrant pain 984957766 R10.32 Health Concerns Section Related Observation LastModified by Organization Detai ls LastModified Time None Recorded Concern Status LastModified by Organization Details LastModified Time None Recorded Advance Directives Directive N: healthcare proxy Hossein Hancock (son) Payers Encounter Date Sequence Insurance Name Policy Number Policy Garduno Covered Member ID Garduno Member ID Guarantor Name 02/05/2019 1 MEDICARE B-[place]: [employer] Mckenna Hancock [id number] Mckenna Hancock 02/05/2019 2 [facility] [id number] Mckenna Hancock [id number] Mckenna Hancock Notes Date Note Type Note Provider Name and Address Organization Details Recorded Time 02/05/2019 text/html Left lower quadr ant pain and deeper inside the pubic areaDull painintensity is 6/10Every day and night: does not go away when restingOnset is suddenNot related to BM, UrinationNot related to activity Neck and back pain. Moderate osteoporosis. Arthritis in knees. Hips were checked on MRI She has diabetes A1c down from 12 to 8.6 by loosing weight and diet management. She thinks she had uti. she had yeast uti and no mention of ecoli or similar uti. Most cultures have been no growth. She has had no johnathon hematuria. Urinalysis has shown blood Not a smoker. Not exposed to second hand smoke. No blood thinner. She has high calcium levels. parathyroids are normal She had cystoscopy with DR Aubrey Terrazas and it was normal per her. He did not mention anything like a polyp etc Urinary frequency 5 times , nocturia 2. She does not drink much fluids. Little caffeine. She was offered myrbetriq and tamsulosin but she has taken neither now. Tamsulosin was causing dizziness. David Noguera MD [address] [place] [address], [phone], [facility]. 02/05/2019 09:27:31 OBGyn Episode No OBEpisode recorded.
[2024-02-05 11:30] VITALS: BP 128/76; PULSE 99; BMI 29.6
--- NOTE | 2024-02-05 11:30 | A.OFFVIS_ITS ---
Vital Signs 02/05/24 11:30 Height 5 ft 1 in Weight 156 lb 8.451 oz BMI 29.6 BP 128/76 Blood Pressure Location Rt brachial Position Sitting Pulse 99 Pulse Source Pulse Oximeter Intake Visit Reasons: f/u Type 2 DM /hyperlipidemia /osteoporosis Intake Note: Patient present today to follow up on Type 2 Diabetes Mellitus, Hyperlipidemia & Osteoporosis: Patient receives DME supplies through: [employer] Last Diabetic Eye exam: 04/2023 Last Podiatry Visit: Doesn't have one. Most Recent HgA1C: 7.4%, 02/05/2024 Random Glucose: 125 mg/dL, Today Building Insulation Installer Required: No Accompanied by: Self / Same As Patient Allergies dulaglutide [From Trulicity] Adverse Reaction (Intermediate, Verified 10/30/23 10:04) nausea glipizide Adverse Reaction (Intermediate, Verified 10/30/23 10:04) patient HPI Comments Details: 73 YO F with PMHx T2DM who is seen in F/U for T2DM, Osteoporosis and a NTMNG. . Of note, the patient is somewhat of a poor historian. Additional history was provided by her Son who is a plastic surgeon in [facility]. 1) T2DM: Initially diagnosed with T2DM in 2000. Was initially started on treatment with Metformin. She started using Insulin in 2015. Current regimen Metformin 1000 mg PO BID and Tresiba 30 units daily and Novolog 10 units TID . mounjaro 5 mg Qwkly She has failed treatment with Trulicity as well as Glipizide. She was unable to tolerate the Trulicity due to GI distress. She was intolerant to Jardiance due to recurrent vaginal yeast infection.. She is not taking the 30 units of Tresiba consistently and sometimes takes less Uses Dexcom sensor. Download shows she is using the sensor 93% of the time. Average glucose is 170 with G mi of 7.4% and standard deviation 47. 63% range with 37% hyperglycemia and no hypoglycemia Reports no low sugars when she does not eat. Is aware of the rule of 15's to treat. No low sugars since her last visit. Treats lows with juice. Checks sugar after to ensure it is rising. Family history of T2DM in her Mother. Has eyes checked yearly, last eye exam last mo , has retinopathy. Has neuropathy. Is on Gabapentin. Has nephropathy, on Losartan 100 mg PO daily. UAC 27.4 01/06/2021. Has HLD, on Atorvastatin 40 mg PO daily. Now on 80 mg atorvastatin . Admits to only taking 40 mg at present Denies CAD. Had diabetes education. 2) Osteoporosis: She has a longstanding history of hypercalcemia. She also has a long standing history of Osteoporosis of her spine and hip. She appears to have failed treatment with Fosamax. BMD has acutely worsened over the past 2 years. After our initial visit we completed a full workup for secondary causes of Osteoporosis. SPEP revealed possible elevated M protein. She was referred to Heme-Onc and had additional testing. This was thought to represent MGUS. She continues to follow with Heme-Onc. First diagnosed in her late 50's. Received treatment in the past with Fosamax for 1 years 5 yrs a go , but stopped this around the age of 65. Tolerated treatment well without complication. No history of pathologic fracture or ONJ. Has 0 servings of dietary calcium. Does not take Calcium. Takes 5000 IU of Vitamin D daily. Fracture history: Did have a fracture of her leg. This was a fragility fracture. She had a hysterectomy in her mid 40's and never had symptoms of menopause after. History of Kidney stones: Denies Family history of Osteoporosis in her Mother. UTD on dental cleanings and sees dentist every 6 months. No planned upcoming dental work or extractions. We discussed Prolia and she was initially agreeable to this, but then changed her mind and refused treatment. Also has a NTMNG. She underwent FNA biopsy 08/15/2022 of her left mid pole 1.7 cm thyroid nodule with benign (bethesda category II) cytology. Thyroid US: 04/18/2020 Right Thyroid Lobe: 4.5 x 1.8 x 1.5 cm, volume 6.4 mL. Parenchyma: The gland echotexture is heterogeneous. Thyroid vascularity is normal. Left Thyroid Lobe: 4.8 x 1.9 x 1.3 cm, volume 6.2 mL. Parenchyma: The gland echotexture is heterogeneous. Thyroid vascularity is normal. Isthmus: 0.5 cm in maximum AP dimension. Estimated total number of nodules greater than or equal to 1 cm: 3. Communications Tower Climber nodules are described as follows: 1. Location: Right mid. Size: 1.0 x 0.8 x 0.9 cm, volume 4 mL. Nodule characteristics: Composition: Solid (2). Echogenicity: Hypoechoic (2). Shape: Not taller than wide (0). Margins: Smooth (0). Echogenic Foci: Punctate echogenic foci (3). ACR TI-RADS total points: 7 ACR TI-RADS category: 5 2. Location: Right mid. Size: 1.0 x 0.8 x 0.8 cm, volume 0.3 mL. Nodule characteristics: Composition: Solid (2). Echogenicity: Hyperechoic (1). Shape: Not taller than wide (0). Margins: Ill-defined (0). Echogenic Foci: None (0). ACR TI-RADS total points: 3 ACR TI-RADS category: 3 3. Location: Left inferior. Size: 1.3 x 1.2 x 1.7 cm, volume 1.4 mL. Nodule characteristics: Composition: Solid (2). Echogenicity: Hyperechoic (1). Shape: Not taller than wide (0). Margins: Smooth (0). Echogenic Foci: None (0). ACR TI-RADS total points: 3 ACR TI-RADS category: 3 NODES: No lymphadenopathy is seen in the tissue surrounding the thyroid gland. DXA: 07/30/2022 FINDINGS: AP SPINE L1-L2 (excluding L3 and L4): The data of L1-L4 has been changed to exclude the L3 and L4 vertebral bodies, because hardware at these levels may cause overestimation of lumbar spine density. Current: BMD 0.771 g/cm2, Z-score -1.5, T-score -3.3, osteoporosis, 14.6% increase from previous, 3.1% decrease from baseline (<5% change is not significant). Prior: BMD 0.673 g/cm2. Baseline: BMD 0.796 g/cm2. LEFT FEMUR, NECK: Current: BMD 0.652 g/cm2, Z-score -1.0, T-score -2.8, osteoporosis. Prior: BMD 0.641 g/cm2. Baseline: BMD 0.716 g/cm2. LEFT FEMUR, TOTAL: Current: BMD 0.641 g/cm2, Z-score -1.3, T-score -2.9, osteoporosis, 1.6% increase from previous, 11.8% decrease from baseline (<5% change is not significant). Prior: BMD 0.631 g/cm2. Baseline: BMD 0.727 g/cm2. LEFT FOREARM RADIUS 33%: BMD 0.517 g/cm2, Z-score -2.1, T-score -4.1, osteoporosis. Prior:? Not previously measured. Labs: Laboratory Tests 03/27/22 08:20 Creatinine 1.05 Estimated GFR 52 PFSH Medical History Abnormal SPEP CKD (chronic kidney disease) Common bile duct dilatation Esophageal hernia GERD (gastroesophageal reflux disease) H. pylori duodenitis Hypercholesterolemia Hypertension Insomnia Osteoporosis Thyroid nodule Tubular adenoma of colon Type 2 diabetes mellitus with hyperglycemia Vitamin D deficiency Surgical History History of back surgery S/P epidural steroid injection Status post lumbar spine surgery for decompression of spinal cord H/O: hysterectomy History of partial hysterectomy Family History Father No problems noted. Mother Diabetes Social History Household Members: None Housing: House Are you a primary career resource technician to a significant other at home: No Alcohol intake: never Patient Tobacco Use Status: Never used Tobacco Tobacco use type: Cigarette e-Cigarette/Vaping Use: Never Used Second Hand Smoke Exposure: No service: No Current occupational status: retired Cognitive needs: No Hearing needs: No Vision needs: Yes (Glasses) Physical Exam Vital Signs: Last Vital Signs Pulse 99 02/05/24 11:30 BP 128/76 02/05/24 11:30 BMI result Body Mass Index 29.6 Absence of Cushingoid features. Absence of acromegalic features. Neck exam reveals nl size thyroid about 15 gms. No thyroid nodules palpable. No carotid bruits present. Lungs CTA. Heart S1 S2, Reg R/R. No M/R/ G. Skin exam reveals absence of vitiligo or acanthosis nigricans. Abdominal exam reveals Soft NT/ND with NA BS. No organomegaly present. Neck Other: . Extrem Other: Visual exam of foot performed. No ulcerations or open lesions. No onchomycosis, no callouses.Pulses 2 + distally Sensation intact to monofilament exam. Vibratory sensation sensed is intact with 128 Hz tuning fork Results AMB Hemoglobin A1c AMB Hemoglobin A1c 7.4 % Last Edit by KAVITA Macario on 02/05/24 11:45 Results Reviewed Results Reviewed: Laboratory Last Values Glucose (Clinic) 125 mg/dL (60-115) H 02/05/24 11:36 Hgb A1c (Clinic) 7.4 % (4.0-6.0) H 02/05/24 11:31 Assessment & Plan Assessment & Plan (1) Type 2 diabetes mellitus with hyperglycemia: Comment: Dr. Villalta and Edith Code(s): E11.65 - Type 2 diabetes mellitus with hyperglycemia Category: Medical Qualifiers: Diabetes mellitus lobsterman insulin use: with residential use Qualified Code(s): E11.65 - Type 2 diabetes mellitus with hyperglycemia; Z79.4 - manager intermediate (current) use of insulin Plan: This 72-year-old white female with history of type 2 diabetes being treated with metformin , Mounjaro and basal-bolus insulin glycemic control and known microvascular complications namely CKD and neuropathy. Plan is to have the patient consistently take the Tresiba 30 units. Will have her follow-up with primary care diabetes team in 6 weeks (2) Osteoporosis: Code(s): M81.0 - Age-related osteoporosis without current pathological fracture Category: Medical Plan: Secondary workup was negative except for MGUS. Patient is currently on calcium and vitamin-D with high risk for fracture. Repeat calcium and PTH have been normal Will talk to the patient about initiating Prolia 60 mg q.6 months. Will try to get prior approval insurance for Prolia. Will check basic metabolic panel prior to starting Prolia (3) Hyperlipemia: Code(s): E78.5 - Hyperlipidemia, unspecified Plan: As below (4) Hypercholesterolemia: Code(s): E78.00 - Pure hypercholesterolemia, unspecified Category: Medical Plan: LDL is not at goal at atorvastatin 80 mg. Plan is to have the patient consistently take the 80 mg and recheck lipid profile in 2 months (5) Thyroid nodule: Code(s): E04.1 - Nontoxic single thyroid nodule Category: Medical Plan: Status post FNA of right midpole nodule with benign cytology. We will repeat thyroid ultrasound Orders: Orders AMB Hemoglobin A1c Today E11.65 - Type 2 diabetes mellitus with hyperglycemia, Z79.4 - manager intermediate (current) use of insulin Lipid Panel 2 Months E78.00 - Pure hypercholesterolemia, unspecified Medications: Refilled blood sugar diagnostic (RecogniaTouch Ultra Test strips) 4x daily 100 ea 11RF E11.65 - Type 2 diabetes mellitus with hyperglycemia, Z79.4 - [facility] (current) use of insulin Coding Level of Care Code Est Pt Level 4 (32471) Complex EM visit Add On G2211 Diagnoses Type 2 diabetes mellitus with hyperglycemia, with long-term current use of insulin E11.65; Z79.4 Diabetes mellitus lobsterman insulin use: with residential use Osteoporosis M81.0 Hyperlipemia E78.5 Hypercholesterolemia E78.00 Thyroid nodule E04.1
[2024-02-05 11:39] LABS: Glucose, Whole Blood 125 mg/dL (60-115)
== END 2024-02-05 12:10 | disposition home or self-care (01) ==
PROVIDERS: PCP Internal Medicine; Visit Provider Internal Medicine Endocrinology, Diabetes & Metabolism
DX: E11.65 Type 2 diabetes mellitus with hyperglycemia (principal); Z79.4 Long term (current) use of insulin; M81.0 Age-related osteoporosis without current pathological fracture; E78.5 Hyperlipidemia, unspecified; E78.00 Pure hypercholesterolemia, unspecified; E04.1 Nontoxic single thyroid nodule
CPT/HCPCS: 99214; G2211

== ENCOUNTER 2024-02-23 09:31 | Outpatient (AMB) | payer MEDICARE, OTHER, SELFPAY ==
--- NOTE | 2024-02-23 09:34 | MHC.PC.OV ---
Vital Signs 02/23/24 09:35 Height 5 ft 1 in Weight 157 lb BMI 29.7 BP 140/76 H Blood Pressure Location Lt brachial Position Sitting Pulse 74 Pulse Source Pulse Oximeter Pulse Oximetry (%) 96 Oxygen Delivery Method Room Air Intake Visit Reasons: DM Allergies atorvastatin Adverse Reaction (Intermediate, Unverified 02/23/24 11:46) myalgia dulaglutide [From Trulicity] Adverse Reaction (Intermediate, Verified 02/23/24 09:35) nausea glipizide Adverse Reaction (Intermediate, Verified 02/23/24 09:35) patient Tobacco use date assessed: 02/23/24 Fall risk assessment: No Falls in past year Last assessed Fall Risk: 02/23/24 Dental Screening Dental Screen Date: 02/23/24 Did you have a dental visit in the last 12 months?: Yes Did you have a dental problem in the last 6 months where you did not have access to dental care?: No Was dental information given to patient?: Patient has dentist HPI DM HPI Details The patient is a 73-year-old female presenting with management needs for hypertension, hyperlipidemia, type 2 diabetes mellitus, and osteoporosis, alongside symptoms of shortness of breath and general tiredness. The hypertension is currently managed with losartan and amlodipine, with a goal to maintain blood pressure below 130/80 mmHg. She reports monitoring blood pressure at home and her medications have been effective in controlling it. The patient?s hyperlipidemia has been treated with atorvastatin; however, she has been taking only 40 mg instead of the prescribed 80 mg due to muscle aches. The most recent cholesterol level was 137 mg/dL, which is high, as the goal is to keep it below 100 mg/dL. A switch to rosuvastatin was discussed. For diabetes management, the patient uses a regimen including Mounjaro, insulin, and metformin. Despite this, her hemoglobin A1c level was 7.4% as of January, indicating suboptimal control, the target being below 7.0%. She experiences weight-related issues and frequent urination, which are noted with concern to glucose levels. The osteoporosis treatment plan currently involves initiating Prolia; however, this was postponed due to low calcium levels. The patient is supplementing with calcium, taking 300 mg daily while awaiting appropriate adjustments. Regarding MGUS, no specific updates from her hematology consultation are currently present. The patient is monitored for kidney function, which has declined slightly, with a GFR at 55 mL/min/1.73m?. The symptom of shortness of breath and fatigue upon exertion is noted to have worsened, prompting considerations for a stress test and cardiology referral. She also reports sleep disturbances, managed previously with zolpidem, but seeks alternative options due to difficulty in obtaining it through insurance limitations. [facility] Medical History (Updated 02/23/24 @ 10:07 by Ailyn Garzon MD) Abnormal SPEP Vaginitis Diabetes mellitus Breast cancer screening Dysuria SOB (shortness of breath) on exertion Guaiac positive stools Cough CKD (chronic kidney disease) Vitamin D deficiency Thyroid nodule H. pylori duodenitis Esophageal hernia Tubular adenoma of colon Common bile duct dilatation GERD (gastroesophageal reflux disease) Hypercholesterolemia Osteoporosis Hypertension Type 2 diabetes mellitus with hyperglycemia Insomnia Surgical History History of back surgery S/P epidural steroid injection Status post lumbar spine surgery for decompression of spinal cord H/O: hysterectomy History of partial hysterectomy Family History Father No problems noted. Mother Diabetes Social History Household Members: None Housing: House Are you a primary home care aide to a significant other at home: No Alcohol intake: never Patient Tobacco Use Status: Never used Tobacco Tobacco use type: Cigarette e-Cigarette/Vaping Use: Never Used Second Hand Smoke Exposure: No service: No Current occupational status: retired Cognitive needs: No Hearing needs: No Vision needs: Yes (Glasses) Questionnaire PHQ-9 Over the last 2 weeks, how often have you been bothered by any of the following problems? 1. Little interest or pleasure in doing things: not at all 2. Feeling down, depressed, or hopeless: not at all 3. Trouble falling or staying asleep, or sleeping too much: not at all 4. Feeling tired or having little energy: not at all 5. Poor appetite or overeating: not at all 6. Feeling bad about yourself - or that you are a failure or have let yourself or your family down: not at all 7. Trouble concentrating on things, such as reading the newspaper or watching television: not at all 8. Moving or speaking so slowly that other people could have noticed. Or the opposite - being so fidgety or restless that you have been moving around a lot more than usual: not at all 9. Thoughts that you would be better off or of hurting yourself in some way: not at all Total score: 0 Depression Screening Interpretation: Negative Depression Screening Done: Yes Source: Developed by Drs. Luis Grewal, Keysha Monreal, Edgar Bernardo and colleagues, with an educational rachana from [employer]. Thrive Questionnaire Date Thrive assessed: 02/23/24 I am a: Patient What is your living situation today?: I have a steady place to live Within the past 12 months, did the food you bought not last and you didn't have the money to get more?: Never true Within the past 12 months, did you worry whether your food would run out before you got money to buy more?: Never true Do you have trouble paying for medicines?: No Do you have trouble getting transportation to medical appointments?: No Do you have trouble paying your heating and electricity bill?: No Do you have trouble taking care of your child, family member or friend?: No Do you have trouble with day-to-day activities such as bathing, preparing meals, shopping, managing finances, etc.?: No Are you currently unemployed and looking for a job?: No Are you interested in more education?: No Currently or been in a relationship where the following occur: No concerns reported THRIVE Score: 0 AUDIT C Alcohol Use Questionnaire (AUDIT-C) 1. How often do you have a drink containing alcohol?: Never Total Score: 0 NASRA-7 AMB Questionnaire NASRA-7 Date NASRA - 7 assessed: 02/23/24 Feeling nervous, anxious, or on edge: 0 = Not at all Not being able to stop or control worryin = Not at all Worrying too much about different things: 0 = Not at all Trouble relaxin = Not at all Being so restless that it is hard to sit still: 0 = Not at all Becoming easily annoyed or irritable: 0 = Not at all Feeling afraid as if something awful might happen: 0 = Not at all Total NASRA-7 score (0-4 normal; 5-9 mild; 10-14 moderate; 15-21 severe): 0 Source: Developed by Drs. Luis Grewal, Keysha Monreal, Edgar Bernardo and colleagues, with an educational rachana from [employer]. NASRA-7 Assessment Billing NASRA-7 Assessment Tool: NASRA-7 Assessment 72018 Physical exam (Primary Care) Vital Signs: Last Vital Signs Pulse 74 02/23/24 09:35 BP 140/76 H 02/23/24 09:35 Pulse Ox 96 02/23/24 09:35 Oxygen Delivery Method Room Air 02/23/24 09:35 BMI result Body Mass Index 29.7 Tobacco/Smoking Status: Tobacco use Status Tobacco use date assessed 02/23/24 02/23/24 09:40 Patient Tobacco Use Status Never used Tobacco 02/23/24 09:40 Tobacco use type Cigarette 02/23/24 09:40 e-Cigarette/Vaping Use Never Used 02/23/24 09:40 PHQ-9: PHQ-9 Score PHQ-9: Total score 0 02/23/24 10:25 Depression Screening Interpretation: Negative Thrive Assessment: Date of Thrive Assessment Date Thrive assessed 02/23/24 02/23/24 09:40 Currently or been in a relationship where the following occur: No concerns reported Const General: alert; No acute distress Eyes Conjunctivae: conjunctivae normal Resp Auscultation: clear to auscultation bilaterally Cardio Rate: regular rate Rhythm: regular rhythm GI Inspection: Yes normal to inspection Extrem General: Yes normal to inspection and No edema Results AMB Urinalysis, Automated UA Leukoctes 0 Allen/uL Last Edit by Mariel Ingram CMA on 02/23/24 10:26 UA Nitrite Negative Last Edit by Mariel Ingram CMA on 02/23/24 10:26 UA Urobilinogen 0.2 mg/dL Last Edit by Mariel Ingram CMA on 02/23/24 10:26 UA Protein 0 mg/dL Last Edit by Mariel Ingram CMA on 02/23/24 10:26 UA pH 6.0 Last Edit by Mariel Ingram CMA on 02/23/24 10:26 UA Blood 0 Daniel/uL Last Edit by Mariel Ingram CMA on 02/23/24 10:26 UA Specific Zearing 1.020 Last Edit by Mariel Ingram CMA on 02/23/24 10:26 UA Ketone Negative Last Edit by Mariel Ingram CMA on 02/23/24 10:26 UA Bilirubin 0 mg/dL Last Edit by Mariel Ingram CMA on 02/23/24 10:26 UA Glucose 0 mg/dL Last Edit by Mariel Ingram CMA on 02/23/24 10:26 Results Reviewed Results Reviewed: Laboratory Last Values Urine pH (Auto) 6.0 02/23/24 10:25 Specific Zearing (Auto) 1.020 02/23/24 10:25 Urine Protein (Auto) 0 mg/dL 02/23/24 10:25 Glucose (UA)(Auto) 0 mg/dL 02/23/24 10:25 Urine Ketones (Auto) Negative 02/23/24 10:25 Urine Blood (Auto) 0 Daniel/uL 02/23/24 10:25 Urine Nitrite (Auto) Negative 02/23/24 10:25 Urine Bilirubin (Auto) 0 mg/dL 02/23/24 10:25 Urine Urobilinogen (Auto) 0.2 mg/dL 02/23/24 10:25 Leukocyte Esterase (Auto) 0 Allen/uL 02/23/24 10:25 Coding Level of Care Code Est Pt Level 4 (34707) Complex EM visit Add On G2211 Diagnoses Type 2 diabetes mellitus with hyperglycemia, with long-term current use of insulin E11.65; Z79.4 Diabetes mellitus skilled nursing insulin use: with skilled nursing use Essential hypertension I10 Hypertension type: essential hypertension Hypercholesterolemia E78.00 Osteoporosis M81.0 GERD (gastroesophageal reflux disease) K21.9 CKD stage 2 due to type 2 diabetes mellitus E11.22; N18.2 MGUS (monoclonal gammopathy of unknown significance) D47.2 Frequency of micturition R35.0 SOB (shortness of breath) R06.02 Additional Codes NASRA-7 Assessment Billing - NASRA-7 Assessment Tool: NASRA-7 Assessment 41231 ([id number]) Assessment & Plan Assessment & Plan (1) Type 2 diabetes mellitus with hyperglycemia: Comment: Dr. Riggins Code(s): E11.65 - Type 2 diabetes mellitus with hyperglycemia Category: Medical Qualifiers: Diabetes mellitus skilled nursing insulin use: with long wall shear operator use Qualified Code(s): E11.65 - Type 2 diabetes mellitus with hyperglycemia; Z79.4 - intermediate accountant (current) use of insulin Plan: Decrease the amount of carbohydrate intake, pasta, bread, rice and potatoes are all sugar and that is aside from all the sweet stuff, remember that fruits are good but they are Sweet also. Patient has followed up with endocrinology and on insulin basal and bolus metformin a 1000 mg twice a day and has been placed on Mounjaro. Goal of hemoglobin A1c is below 7.0 (2) Hypertension: Code(s): I10 - Essential (primary) hypertension Category: Medical Qualifiers: Hypertension type: essential hypertension Qualified Code(s): I10 - Essential (primary) hypertension Plan: Continue with blood pressure medication. Decrease salt intake and exercise on losartan 100 mg once a day and amlodipine 5 mg once a day (3) Hypercholesterolemia: Code(s): E78.00 - Pure hypercholesterolemia, unspecified Category: Medical Plan: Avoid fried foods, chicken skin, eggs, butter margarine, pastries and meat. Be it pork or beef they have a lot of cholesterol LDL goal of less than 100 and triglyceride of less than 150 patient has been placed on atorvastatin 80 mg at bedtime and advised to get repeat blood work as the last blood work in October had an elevated LDL. (4) Osteoporosis: Code(s): M81.0 - Age-related osteoporosis without current pathological fracture Category: Medical Plan: Continue with calcium and vitamin-D and patient was advised to start on Prolia (5) GERD (gastroesophageal reflux disease): Code(s): K21.9 - Gastro-esophageal reflux disease without esophagitis Category: Medical Plan: Avoid the foods that causes that usually spicy foods, tomato products, juices, coffee, soda and foods that your sensitive to. After eating do not lie down, allow 3-4 hours before in lie down. And keep the head of bed above 30 degrees to avoid the acid from going up. (6) CKD stage 2 due to type 2 diabetes mellitus: Code(s): E11.22 - Type 2 diabetes mellitus with diabetic chronic kidney disease; N18.2 - Chronic kidney disease, stage 2 (mild) Category: Medical Plan: Patient is followed up by Nephrology avoid NSAIDs and Bactrim keep well hydrated. Continue with losartan (7) MGUS (monoclonal gammopathy of unknown significance): Code(s): D47.2 - Monoclonal gammopathy Category: Medical Plan: Patient is being followed up by hematology oncology in [place] (8) Frequency of micturition: Code(s): R35.0 - Frequency of micturition Category: Medical Plan: will do urinalysis (9) SOB (shortness of breath): Code(s): R06.02 - Shortness of breath Category: Medical Plan - Continue monitoring and management of hypertension with losartan and amlodipine, ensuring regular home monitoring and aiming for target blood pressure below 130/80 mmHg. - Transition from atorvastatin to rosuvastatin for better control of hyperlipidemia, starting with 40 mg dosing. 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 - Address osteoporosis with Calcium supplements and initiate Prolia once hypocalcemia is appropriately managed. - Urinalysis for further assessment of renal function and proteinuria. - Refer for a cardiac evaluation and stress test to investigate causes of exertional shortness of breath and fatigue. - Substitute zolpidem with an alternative such as hydroxyzine for insomnia, considering patient?s reported effectiveness and insurance coverage. - Proceed with cataract surgery as planned per ophthalmology schedule. - Obtain and review recent hematology/oncology notes regarding MGUS to ensure ongoing observation and management. - Discuss lifestyle modifications, including dietary adjustments and gradual exercise increase to support control of glucose levels and overall cardiac health. Orders: Orders Lipid Panel 3 Months E78.00 - Pure hypercholesterolemia, unspecified Comprehensive Met. Panel 3 Months E78.00 - Pure hypercholesterolemia, unspecified Complete Blood Count Auto Diff Today R35.0 - Frequency of micturition CA stress test Today R06.02 - Shortness of breath Hemoglobin A1c 3 Months E78.00 - Pure hypercholesterolemia, unspecified AMB Urinalysis Automated Today R35.0 - Frequency of micturition, Z13.9 - Encounter for screening, unspecified Referrals Cardiology Referral R06.02 - Shortness of breath Medications: New rosuvastatin 40 mg PO DAILY 90 tabs 1RF E78.00 - Pure hypercholesterolemia, unspecified doxepin (Silenor) 3 mg PO BEDTIME PRN 30 tabs 0RF sleep G47.00 - Insomnia, unspecified Discontinued atorvastatin Discontinued Reason: Patient Refused 80 mg PO BEDTIME 90 tabs 3RF zolpidem Discontinued Reason: Doctor's Order 5 mg PO BEDTIME PRN 30 tabs 2RF sleep
[2024-02-23 09:35] VITALS: BP 140/76; PULSE 74; O2SAT 96; BMI 29.7
== END 2024-02-23 10:24 | disposition home or self-care (01) ==
PROVIDERS: PCP Internal Medicine; Visit Provider Internal Medicine
DX: I12.9 Hypertensive chronic kidney disease with stage 1 through stage 4 chronic kidney disease, or unspecified chronic kidney disease (principal); E11.65 Type 2 diabetes mellitus with hyperglycemia; E11.22 Type 2 diabetes mellitus with diabetic chronic kidney disease; Z79.4 Long term (current) use of insulin; N18.2 Chronic kidney disease, stage 2 (mild); E78.00 Pure hypercholesterolemia, unspecified; M81.0 Age-related osteoporosis without current pathological fracture; K21.9 Gastro-esophageal reflux disease without esophagitis; D47.2 Monoclonal gammopathy; R35.0 Frequency of micturition; R06.02 Shortness of breath

== ENCOUNTER → 2024-02-23 09:31 | Outpatient (BNVA) | payer MEDICARE, OTHER, SELFPAY | PROVIDERS: PCP Internal Medicine; Visit Provider Internal Medicine | DX: E11.65 Type 2 diabetes mellitus with hyperglycemia (principal); E11.22 Type 2 diabetes mellitus with diabetic chronic kidney disease; I12.9 Hypertensive chronic kidney disease with stage 1 through stage 4 chronic kidney disease, or unspecified chronic kidney disease; N18.2 Chronic kidney disease, stage 2 (mild); E78.5 Hyperlipidemia, unspecified; M81.0 Age-related osteoporosis without current pathological fracture; E78.00 Pure hypercholesterolemia, unspecified; K21.9 Gastro-esophageal reflux disease without esophagitis; D47.2 Monoclonal gammopathy; R35.0 Frequency of micturition; R06.02 Shortness of breath; Z79.4 Long term (current) use of insulin | CPT/HCPCS: 81003; 96127; 99212 ==

== ENCOUNTER → 2024-03-09 09:03 | Outpatient (REF) | payer MEDICARE, OTHER, SELFPAY ==
--- NOTE | 2024-03-09 09:06 | CA_ITS ---
Acquisition Time: 2024-03-09 09:14:39 Total Exercise Time: 00:05:00 Test Indications: Dyspnea,Fatigue Medications: SEE EMAR /PRINT OUT Protocol: BEVERLY Max HR: 155 BPM 105% of Pred: 147 BPM Max BP: 220/52 mmHG Max Work Load: 5.6 METS Exercise Stress Test with exercise 5 min of Beverly Protocol, reduced speed to 2.0mph at stage 2, achieving 105% MPHR, with reports of moderate SOB, no chest pain, with isolated PVCs, with hypertensive response to exercise- max BP 220/52. With ST depressions noted anterolaterally during exercise, indicating further testing with Nuclear images. BP returned to baseline and breathing normalized. Test reviewed with Dr. Rodriguez. Referred By: Ailyn Garzon Electronically Signed By: Elio Valles
== END ==
LOC: HO.CARD 09:03
PROVIDERS: PCP Internal Medicine; Visit Provider Internal Medicine
DX: R06.02 Shortness of breath (principal)
CPT/HCPCS: 93017

== ENCOUNTER → 2024-03-09 09:06 | Outpatient (BNV) | payer MEDICARE, OTHER, SELFPAY | PROVIDERS: PCP Internal Medicine | DX: R06.02 Shortness of breath (principal); I49.3 Ventricular premature depolarization; R03.0 Elevated blood-pressure reading, without diagnosis of hypertension | CPT/HCPCS: 93016; 93018 ==

== ENCOUNTER → 2024-04-01 09:43 | Outpatient (REF) | payer MEDICARE, OTHER, SELFPAY ==
--- NOTE | 2024-04-01 09:45 | CA_ITS ---
Acquisition Time: 2024-04-01 10:03:00 Total Exercise Time: 00:05:21 Test Indications: SOB Medications: SEE H&P Protocol: BEVERLY Max HR: 151 BPM 102% of Pred: 147 BPM Max BP: 200/70 mmHG Max Work Load: 4.6 METS Exercise Stress Test with exercise 5 mins 21 secs of Beverly Protocol, held at Stage 1, achieving 102% MPHR, with reports of mild SOB, no chest discomfort, without any arrythmias, with baseline hypertension max BP 200/70 with exercise. with EKG changes inferiorly and in V2-V6 that improved quickly in recovery. In recovery, breathing returned to baseline. Nuclear Images pending. Test reviewed with Dr. Rodriguez. Referred By: Ailyn Garzon Electronically Signed By: Elio Valles
--- OUTSIDE RECORDS SUMMARY | 2024-04-01 10:14 | XMS_ITS | Clinical Summary ---
Author Organization [facility] Address [address] [phone] Phone Care Team Providers Care Warehouse Order Filler Name Role Phone Ailyn Garzon MD Primary Care Provider [phone] Allergies Active Allergy Reactions Criticality Noted Date Comments Lisinopril 10/23/2021 Other reaction(s): Cough Medications metFORMIN (GLUCOPHAGE) 1000 MG tablet metformin 1,000 mg tablet 1 Active atorvastatin (LIPITOR) 80 MG tablet Take 80 mg by mouth in the morning. Active aspirin (ST FLORA) 81 MG EC tablet at bed time Active losartan (COZAAR) 100 MG tablet Take 100 mg by mouth 1 (one) time each day Active gabapentin (NEURONTIN) 100 MG capsule Take 1 capsule by mouth 1 (one) time each day 2 Active ferrous sulfate 325 (65 Fe) MG tablet Take 1 tablet by mouth 1 (one) time each day 4 Active Mounjaro 2.5 MG/0.5ML solution pen-injector 4 Active zolpidem (AMBIEN) 5 MG tablet Take 5 mg by mouth at night if needed Active amLODIPine (NORVASC) 5 MG tablet Take 1 tablet (5 mg total) by mouth 1 (one) time each day 90 tablet 3 4 05/23/19 25 Active Active Problems Problem Noted Date Diagnosed Date Dyslipidemia 11/18/2023 Hypercalcemia 12/11/2021 Hypertension 10/23/2021 Diabetes mellitus, not otherwise specified 10/23 Chronic kidney disease, stage 2 (mild) 2 Monoclonal gammopathy of undetermined significan ce (MGUS) 10/23/2021 Osteoporosis 06/21/2008 Resolved Problems Problem Noted Date Diagnosed Date Resolved Date Hypercholesterolemia 10/23/2021 024 Sacroiliac joint pain 10/23/20212021 Spinal stenosis of lumbar region 10/23/2021 10/23/2021 Thyroid nodule 10/23/2021 10/23/2021 Left lower quadrant pain 02/05/201902/2023 Pain in pelvis 02/05/2019 11/18/2023 Depressive disorder 10/23/2011 10/24/19 22 Encounters Date Type Department Care Team Description 02/02/2024 9:20 AM EST Office Visit [facility]. [address] [place] [phone] Jw Modi MD Chronic kidney disease, stage 2 (mild) (Primary Dx); Monoclonal gammopathy of undetermined significance (MGUS); Osteoporosis; Diabetes mellitus, not otherwise specified (HCC); Hypertension; Dyslipidemia; Hypercalcemia 02/02/2024 Office Communication [facility]. [address] [place] [phone] Alia Anaya 01/31/2024 Travel from Last 3 Months Immunizations Name Administration Dates Next Due DTaP 05/27/2008 Influenza Whole 02/03/2007 Pneumococcal Polysaccharide 04/28/2008 Zoster 03/03/2012 Family History Medical History Relation Comments Diabetes Mother Relation Status Comments Mother Social History Tobacco Use Types Packs/Day Years Used Date Smoking Tobacco: Never Smokeless Tobacco: Never Tobacco Cessation:Counseling Given: Not Answered Alcohol Use Standard Drinks/Week Comments Never 0 (1 standard drink = 0.6 oz pur e alcohol) Comments Unknown Sex and Gender Information Value Date Recorded Sex Assigned at Not on file Legal Sex Female 1:44 PM EDT Gender Identity Not on file Sexual Orientation Not on file Last Filed Vital Signs Vital Sign Reading Time Taken Comments Blood Pressure 164/78 02/02/2024 9:28 AM EST Pulse 98 02/02/2024 9:28 AM EST Temperature - - Respiratory Rate - - Oxygen Saturation 97% 02/02/2024 9:28 AM EST Inhaled Oxygen Concentration - - Weight 72.2 kg (159 lb 3.2 oz) 02/02/2024 9:28 A M EST Height 157.5 cm (5' 2 ) 02/02/2024 9:28 AM EST Body Mass Index 29.12 02/02/2024 9:28 AM EST Plan of Treatment Upcoming Encounters Date Type Department Care Team (Late st Contact Info) Description 08/02/2024 8:30 AM EDT Office Visit [facility] [address] [phone] Chris Gonzáles MD [address] [phone] Health Maintenance Due Date Last Done Comments Breast Cancer Screening 1950 Colorectal Cancer Screening: Annual FOBT 05/24/1999 Colorectal Cancer Screening: Colonoscopy 05/24/1999 Colorectal Cancer Screening: Sigmoidoscopy 05/24/1999 Pneumococcal Vaccine: 65+ Years (2 of 2 - PCV) 04/28/2009 04/28/2008 Diabetes: Ophthalmology Exam 10/23/2021 Diabetes: Pedal Pulse Checked 10/23/2021 Diabetes: Sensory Foot Exam 10/23/2021 Diabetes: Visual Foot Exam 10/23/2021 Diabetes: Hemoglobin A1C 08/22/2023 024, 10/23/2021 Influenza Vaccine (#1) 2023 02/03/2007 Hepatitis B Vaccine Aged Out No longe r eligible based on patient's age to complete this topic Procedures Procedure Name Priority Date/Time Associated Diagnosis Comments RENAL FUNCTION PANEL Routine 02/02/2024 10:39 AM EST Chronic kidney disease, stage 2 (mild) Monoclonal gammopathy of undetermined significance (MGUS) Osteoporosis Diabetes mellitus, not otherwise specified (HCC) Hypertension Dyslipidemia Hypercalcemia HEMOGLOBIN A1C Routine 2023 11:26 AM EDT Chronic kidney disease, not otherwise specified from Last 3 Months or Most Recently Relevant to Health Maintenance Results * (ABNORMAL) Renal Function Panel (02/02/2024 10:39 AM EST) Glucose 108(H) 70 - 99 mg/dL [facility] BUN 27 8 - 27 mg/dL [facility] Creatinine 1.07(H) 0.57 - 1.00 mg/dL [facility] eGFR CKD-EPI CR 2020 55(L) >59 mL/min/1.7 3 [facility] BUN/Creatinine Ratio 25 12 - 28 [facility] Sodium 138 134 - 144 mmol/L [facility] Potassium 5.1 3.5 - 5.2 mmol/L [facility] Chloride 101 96 - 106 mmol/L [facility] Bicarbonate (CO2) 18(L) 20 - 29 mmol/L [facility] Calcium 10.2 8.7 - 10.3 mg/dL [facility] Albumin 4.4 3.8 - 4.8 g/dL [facility] Phosphorus 4.0 3.0 - 4.3 mg/dL [facility] Blood (Blood, Venous) 02/02/2024 10:39 AM EST 02/02/2024 us Jw Modi MD LAB BLOOD ORDERABLES Final Re sult [facility] [address] [place] [phone] * (ABNORMAL) Hemoglobin A1c (2023 11:26 AM EDT) Hemoglobin A1C 7.2(H) 4.8 - 5.6 % [facility] Comment: ? Prediabetes: 5.7 - 6.4 ? Diabetes: >6.4 ? Glycemic control for adults with diabetes: <7.0 Blood (Blood, Venous) 2023 11:26 AM EDT 2023 Narrative [facility] - 05/24/2023 3:06 AM EDT Performed at: ??01 - [facility] [address] ??[id number] Production Clerk: Kortney Alves MD, Phone: ??[phone] Alexandra Lara MD LAB BLOOD ORDERABLES Final Result [facility] from Last 3 Months or Most Recently Relevant to Health Maintenance Insurance MEDICARE [facility] MEDICARE [facility] Care Teams Warehouse Order Filler Relationship Specialty Start Date End Date Ailyn Garzon MD [facility] [id number] [place], [place] PCP - General Internal Medicine 09/10/21
--- OUTSIDE RECORDS SUMMARY | 2024-04-01 10:14 | XMS_ITS | Data Portability ---
Author Organization [facility] [employer], svmg_admin Address [address] [place] [address] Care Team Providers Care Edge Inker Name Role Phone DAVID NOGUERA Urologist FABRICIO RUBIO Primary Care Provider [phone] Assessment Encounter Date Assessment Date Assessment LastModified [...] dipstick, auto 2018 019 rigo [facility] [place], [address] [place] [address], [facility], [place], [address], 9 09:26:31 Referral None recorded. Procedures None recorded. Surgeries None recorded. Imaging None recorded. Medication Orders None recorded. Patient TargetsNo targets recorded. Patient Instructions Encounter Date Encounter Id Patient Instructions Last Modified By Organization Details Last Modified Time 02/05/2019 [id number] A healthy lifestyle: care instructions rigo Not available 02/05/2019 09:26:31 abdominal pain: care instructions [email or web address] Not available 02/05/2019 09:26:31 Reason for Referral None Reported. Results Created Date Observation Date Name Description Value Unit Range Abnormal Flag Note LastModifiedBy Organization Detail LastModifiedTime 02/06/20 19 02/05/2019 urina lysis , dipst ick, auto Unknown Analyte 2+ Not Available [facility] [address], [address], 02/05/2019 09:17:47 02/06/20 19 02/05/2019 urina lysis , dipst ick, auto Unknown Analyte negati ve Not Available [facility] [address], [address], 02/05/2019 09:17:47 02/06/20 19 02/05/2019 urina lysis , dipst ick, auto Unknown Analyte Negati ve Not Available [facility] [address], [address], 02/05/2019 09:17:47 02/06/20 19 02/05/2019 urina lysis , dipst ick, auto Unknown Analyte 5 Not Available [facility] [address], [address], 02/05/2019 09:17:47 02/06/20 19 02/05/2019 urina lysis , dipst ick, auto Unknown Analyte Trace Not Available [facility] [address], [address], 02/05/2019 09:17:47 02/06/20 19 02/05/2019 urina lysis , dipst ick, auto Unknown Analyte 1.025 Not Available [facility], [address], 02/05/2019 09:17:47 02/06/20 19 02/05/2019 urina lysis , dipst ick, auto Unknown Analyte Negati ve Not Available [facility] - [place] [address], [address], 02/05/2019 09:17:47 02/06/20 19 02/05/2019 urina lysis , dipst ick, auto Unknown Analyte Negati ve Not Available [facility] [place] [address], [address], 02/05/2019 09:17:47 02/06/20 19 02/05/2019 urina lysis , dipst ick, auto Unknown Analyte Negati ve Not Available [facility] [place] [address], [address], 02/05/2019 09:17:47 02/04/20 19 12/03/2018 CT, abdom en + pelvi s, w/wo contr ast No observ ation record ed. [email or web address] Not Available 2018 18:13:50 Result Notes None recorded. Problems Name Problem SNOMED Code Status Onset Date Resolution Date Notes Provider Name and Address Organization Details Recorded Time Pain in pelvis 57013909 Active 2018 David Noguera MD [address] [place] [address], [address], [facility] 9 08:28:19 Left lower quadrant pain 752675903 Active 2018 David Noguera MD [address] [place] [address], [address], [facility] 9 08:28:40 Problem Notes None recorded. Procedures Surgical History Date Name Laterality Status Provider Name and Address Organization Details Recorded Time hysterectomy completed Wendy Lopez [facility] 02/05/2019 08:23:53 Imaging Results Imaging [...] Updated DateTime 9 157.48 cm 27.1 kg/m2 11282.6 7 g 92 /min 140 mm[Hg] 87 mm[Hg] Wendy Lopez [facility] 9 08:15:46 Social History Question Answer Notes LastModified by Organizat ion Details LastModified Time Tobacco Smoking Status Never Smoker Wendy Lopez [facility] 02/05/2019 08:21:53 Do You Have An Advance [...] Diagnosis/Indication Diagnosis SNOMED-CT Code Diagnosis ICD10 Code Diagnosis Note [id number] Rich Noguera MD [facility] - [facility] 159 [facility] 101 [facility] [place] [address] 02/05/2019 07:56:41 02/05/2019 09:09:23 Pain in pelvis 55535094 R10.2 Patient has vague characterf elt in the pelvis and lower quadrants over the colon area Not over the bladder. Normal symphysis pubis I reviewed the xray and labs and reports she brought with her. I dont have any copies of reports and consults with Dr terrazas I dont think she should take any urological medication s. Myrbetriq and tamsulosin have side effects. Her UA shows few rbc and leucs. There are no bacteria or nitrites. The specific gravity is high. we will do culture and cytology on this sample She will fu with GI. Her son Andiecornel will call me if there are any questions or followup She will not fu here as it is very difficult for her geographic ally to travel from [facility]. She will fu as needed with local urologist Left lower quadrant pain 095710335 R10.32 Needs GI assessment and orthopedic evaluation Health Concerns Section Related Observation LastModified by Organization Detai ls LastModified Time None Recorded Concern Status LastModified by Organization Details LastModified Time None Recorded Advance Directives Directive N: healthcare proxy Hossein Hancock (son) Payers Encounter Date Sequence Insurance Name Policy Number Policy Garduno Covered Member ID Garduno Member ID Guarantor Name 02/05/2019 1 [place] [employer] Mckenna Hancock [id number] Mckenna Hancock 02/05/2019 2 [facility] [id number] 1 Mckenna Chavesury [id number] Mckenna Hancock Notes Date Note Type Note [...] Tamsulosin was causing dizziness. David Noguera MD [address] [place] [address], [address], [facility]. 02/05/2019 09:27:31 OBGyn Episode No OBEpisode recorded.
--- OUTSIDE RECORDS SUMMARY | 2024-04-01 10:14 | XMS_ITS | Encounter Summary ---
Author Organization [facility] Address [address] [facility] [address] [place] [address] Phone Care Team Providers Care Bookkeepers Supervisor Name Role Phone Ailyn Garzon MD Primary Care Provider [phone] Encounter Details Date Type Department Care Team (Late Contact Info) Description 11/13/2021 Documentation Only [facility] [address] [facility] [address] [place] [address] Tamara Hendrickson Social History Tobacco Use Types Packs/Day Years Used Date Smoking Tobacco: Never Smokeless Tobacco: Never Alcohol Use Standard Drinks/Week Comments Never 0 (1 standard drink = 0.6 oz pur e alcohol) Comments Unknown Sex and Gender Information Value Date Recorded Sex Assigned at Not on file Legal Sex Female 1:44 PM EDT Gender Identity Not on file Sexual Orientation Not on file documented as of this encounter Plan of Treatment Upcoming Encounters Date Type Department Care Team (Late st Contact Info) Description 08/02/2024 8:30 AM EDT Office Visit [facility] [address] [phone] Chris Gonzáles MD [address] [facility] [address] [place] [address] documented as of this encounter Visit Diagnoses Not on filedocumented in this encounter Care Teams Bookkeepers Supervisor Relationship Specialty Start Date End Date Ailyn Garzon MD [facility] [address] [place] PCP - General Internal Medicine 09/10/21 documented as of this encounter
== END ==
LOC: HO.CARD 09:43
PROVIDERS: PCP Internal Medicine; Visit Provider Internal Medicine
DX: R06.02 Shortness of breath (principal); R94.39 Abnormal result of other cardiovascular function study
CPT/HCPCS: 93017

== ENCOUNTER → 2024-04-01 09:45 | Outpatient (BNV) | payer MEDICARE, OTHER, SELFPAY | PROVIDERS: PCP Internal Medicine | DX: R06.02 Shortness of breath (principal); I10 Essential (primary) hypertension | CPT/HCPCS: 78452; 93016; 93018 ==

== ENCOUNTER 2024-04-09 08:11 | Outpatient (REF) | payer MEDICARE, OTHER, SELFPAY ==
[2024-04-09 09:25] LABS: MANUAL DIFF FLAG NO
--- OUTSIDE RECORDS SUMMARY | 2024-04-09 09:36 | XMS_ITS | Clinical Summary ---
Author Organization [facility] Address [address] [address] Phone Care Team Providers Care Lanolin Plant Operator Name Role Phone Ailyn Garzon MD Primary Care Provider [phone] Allergies Active Allergy Reactions Criticality Noted Date [...] Office Visit [facility]. [address] [place] [phone] Jw Modi MD Chronic kidney disease, stage 2 (mild) (Primary Dx); Monoclonal gammopathy of undetermined significance (MGUS); Osteoporosis; Diabetes mellitus, not otherwise specified (HCC); Hypertension; Dyslipidemia; Hypercalcemia 02/02/2024 Office Communication [facility]. [address] [place] [phone] Alia Anaya 01/31/2024 Travel from Last 3 [...] Office Visit [facility] [address] [phone] Chris Gonzáles MD [address] [phone] Health Maintenance Due Date Last Done Comments [...] Glucose 108(H) 70 - 99 mg/dL [facility] BUN 27 8 - 27 mg/dL [facility] Creatinine 1.07(H) 0.57 - 1.00 mg/dL [facility] eGFR CKD-EPI CR 2020 55(L) >59 mL/min/1.7 3 [facility] BUN/Creatinine Ratio 25 12 - 28 [facility] Sodium 138 134 - 144 mmol/L [facility] Potassium 5.1 3.5 - 5.2 mmol/L [facility] Chloride 101 96 - 106 mmol/L [facility] Bicarbonate (CO2) 18(L) 20 - 29 mmol/L [facility] Calcium 10.2 8.7 - 10.3 mg/dL [facility] Albumin 4.4 3.8 - 4.8 g/dL [facility] Phosphorus 4.0 3.0 - 4.3 mg/dL [facility] Blood (Blood, Venous) 02/02/2024 10:39 AM EST 02/02/2024 us Jw Modi MD LAB BLOOD ORDERABLES Final Re sult [facility] [address] [place] [address] * (ABNORMAL) Hemoglobin A1c (2023 11:26 AM EDT) Hemoglobin A1C 7.2(H) 4.8 - 5.6 % [facility] Comment: ? Prediabetes: 5.7 - 6.4 ? Diabetes: >6.4 ? Glycemic control for adults with diabetes: <7.0 Blood (Blood, Venous) 2023 11:26 AM EDT 2023 Narrative [facility] - 05/24/2023 3:06 AM EDT Performed at: ??01 - [facility] [address] ??[id number] Marketing Performance Analyst: Kortney Alves MD, Phone: ??[phone] Alexandra Lara MD LAB BLOOD ORDERABLES Final Result [facility] from Last 3 Months or Most Recently Relevant to Health Maintenance Insurance MEDICARE [facility] MEDICARE [facility] Care Teams Lanolin Plant Operator Relationship Specialty Start Date End Date Ailyn Garzon MD [facility] [address] [place], [place] PCP - General Internal Medicine 09/10/21
--- OUTSIDE RECORDS SUMMARY | 2024-04-09 09:36 | XMS_ITS | Encounter Summary ---
Author Organization [facility] Address [address] [facility] [address] [place] [address] Phone Care Team Providers Care Lacing Cutter Name Role Phone Ailyn Garzon MD Primary Care Provider [phone] Encounter Details Date Type Department Care Team (Late Contact Info) Description 11/13/2021 Documentation Only [facility] [address] [facility] [address] [place] [address] Tamara Hendrickson Social History Tobacco [...] Visit [facility] [address] [phone] Chris Gonzáles MD [address] [facility] [address] [place] [address] documented as of this encounter Visit Diagnoses Not on filedocumented in this encounter Care Teams Lacing Cutter Relationship Specialty Start Date End Date Ailyn Garzon MD [facility] [address] [place] PCP - General Internal Medicine 09/10/21 documented as of this encounter
[2024-04-09 09:57] LABS: Basophils Absolute Auto 0.1 X10*3/uL (0.0-0.2); Basophils Percent Auto 0.7 % (0-2); Eosinophils Absolute Auto 0.3 X10*3/uL (0.0-0.4); Eosinophils Percent Auto 4.1 % (0-4); Hematocrit 41.4 % (37.0-47.0); Hemoglobin 12.6 g/dl (12.0-16.0); Imm Gran Abs Auto 0.05 X10*3/uL (0.00-0.03); Imm Gran Pct Auto 0.7 % (0.0-0.4); Lymphocytes Absolute Auto 2.6 X10*3/uL (1.2-4.9); Lymphocytes Percent Auto 36.9 % (20-40); Mean Corpuscular HGB Conc 30.4 g/dl (31.0-35.0); Mean Corpuscular Hemoglobin 22.2 pg (27.0-33.0); Mean Corpuscular Volume 72.9 fL (80.0-98.0); Mean Platelet Volume 9.4 fL (9.4-12.3); Monocytes Absolute Auto 0.5 X10*3/uL (0.1-1.2); Neutrophils Absolute Auto 3.5 x10*3/uL (2.0-8.3); Neutrophils Percent Auto 50.6 % (45-73); Platelet Count 373 X10*3/uL (160-400); Red Blood Count 5.68 X10*6/uL (4.20-5.50); Red Cell Distribution Width 15.3 % (11.0-16.0)
[2024-04-09 10:50] LABS: Alanine Aminotransferase 24 U/L (0-31); Albumin Level 4.4 g/dL (3.5-5.0); Alkaline Phosphatase 65 U/L (39-117); Anion Gap 13 (12-20); Aspartate Amino Transferase 30 U/L (5-31); Bilirubin Total 0.3 mg/dL (0.0-1.0); Blood Urea Nitrogen 28 mg/dL (9-16); Calcium 10.5 mg/dL (8.4-10.2); Carbon Dioxide 26 mmol/L (22-29); Chloride 104 mmol/L (96-108); Estimated Glomerular Filt Rate 47; Glucose Random 135 mg/dL (60-115); Potassium 4.3 mmol/L (3.3-5.1); Sodium 139 mmol/L (135-145); Total Protein 8.6 g/dL (6.5-8.0)
== END 2024-04-09 08:12 | disposition home or self-care (01) ==
LOC: HO.LAB 08:11
PROVIDERS: PCP Internal Medicine
DX: Z01.818 Encounter for other preprocedural examination (principal); E11.22 Type 2 diabetes mellitus with diabetic chronic kidney disease; N18.2 Chronic kidney disease, stage 2 (mild); R06.02 Shortness of breath; D47.2 Monoclonal gammopathy
CPT/HCPCS: 36415; 80053; 85025; 96127; 99212

== ENCOUNTER 2024-04-09 08:11 | Outpatient (AMB) | payer MEDICARE, OTHER, SELFPAY ==
--- OUTSIDE RECORDS SUMMARY | 2024-04-09 08:14 | XMS_ITS | Data Portability ---
Author Organization [facility] [employer], svmg_admin Address [address] [place] [address] Care Team Providers Care Video Surveillance Technician Name Role Phone DAVID NOGUERA Urologist [phone] FABRICIO RUBIO Primary Care Provider [phone] Assessment Encounter Date Assessment Date Assessment LastModified [...] dipstick, auto 2018 019 rigo [facility] [place], [address] [place] [address], [facility], [place], [address], 9 09:26:31 Referral None recorded. Procedures None recorded. Surgeries None recorded. Imaging None recorded. Medication Orders None recorded. Patient TargetsNo targets recorded. Patient Instructions Encounter Date Encounter Id Patient Instructions Last Modified By Organization Details Last Modified Time 02/05/2019 [id number] A healthy lifestyle: care instructions rigo Not available 02/05/2019 09:26:31 abdominal pain: care instructions [email or web address] Not available 02/05/2019 09:26:31 Reason for Referral None Reported. Results Created Date Observation Date Name Description Value Unit Range Abnormal Flag Note LastModifiedBy Organization Detail LastModifiedTime 02/06/20 19 02/05/2019 urina lysis , dipst ick, auto Unknown Analyte 2+ Not Available [facility] [address], [address], 02/05/2019 09:17:47 02/06/20 19 02/05/2019 urina lysis , dipst ick, auto Unknown Analyte negati ve Not Available [facility] [address], [address], 02/05/2019 09:17:47 02/06/20 19 02/05/2019 urina lysis , dipst ick, auto Unknown Analyte Negati ve Not Available [facility] [address], [address], 02/05/2019 09:17:47 02/06/20 19 02/05/2019 urina lysis , dipst ick, auto Unknown Analyte 5 Not Available [facility] [address], [address], 02/05/2019 09:17:47 02/06/20 19 02/05/2019 urina lysis , dipst ick, auto Unknown Analyte Trace Not Available [facility] [address], [address], 02/05/2019 09:17:47 02/06/20 19 02/05/2019 urina lysis , dipst ick, auto Unknown Analyte 1.025 Not Available [facility], [address], 02/05/2019 09:17:47 02/06/20 19 02/05/2019 urina lysis , dipst ick, auto Unknown Analyte Negati ve Not Available [facility] [place] [address], [address], 02/05/2019 09:17:47 02/06/20 19 02/05/2019 urina lysis , dipst ick, auto Unknown Analyte Negati ve Not Available [facility] [place] [address], [address], 02/05/2019 09:17:47 02/06/20 19 02/05/2019 urina lysis , dipst ick, auto Unknown Analyte Negati ve Not Available [facility] [place] [address], [address], 02/05/2019 09:17:47 02/04/20 19 12/03/2018 CT, abdom en + pelvi s, w/wo contr ast No observ ation record ed. [email or web address] Not Available 2018 18:13:50 Result Notes None recorded. Problems Name Problem SNOMED Code Status Onset Date Resolution Date Notes Provider Name and Address Organization Details Recorded Time Pain in pelvis 24294910 Active 2018 David Noguera MD [address] [place] [address], [address], [facility] 9 08:28:19 Left lower quadrant pain 655826211 Active 2018 David Noguera MD [address] [place] [address], [address], [facility] 9 08:28:40 Problem Notes None recorded. Procedures Surgical History Date Name Laterality Status Provider Name and Address Organization Details Recorded Time hysterectomy completed Wendy Lopez [facility] 02/05/2019 08:23:53 Imaging Results Imaging [...] Updated DateTime 9 157.48 cm 27.1 kg/m2 51929.6 7 g 92 /min 140 mm[Hg] 87 mm[Hg] Wendy Lopez [facility] 9 08:15:46 Social History Question Answer Notes LastModified by Organizat ion Details LastModified Time Tobacco Smoking Status Never Smoker Wendy Lopez [facility] 02/05/2019 08:21:53 Do You Have An Advance [...] SNOMED-CT Code Diagnosis ICD10 Code Diagnosis Note [id number] Rich Noguera MD [facility] - [facility] 159 [facility] [address] [facility] [place] [address] 02/05/2019 07:56:41 02/05/2019 09:09:23 Pain in pelvis 96103393 R10.2 Patient has vague characterf elt in [...] for her geographic ally to travel from [facility]. She will fu as needed with local urologist Left lower quadrant pain 997747524 R10.32 Needs GI assessment and orthopedic evaluation Health Concerns Section Related Observation LastModified by Organization Detai ls LastModified Time None Recorded Concern Status LastModified by Organization Details LastModified Time None Recorded Advance Directives Directive N: healthcare proxy Hossein Hancock (son) Payers Encounter Date Sequence Insurance Name Policy Number Policy Garduno Covered Member ID Garduno Member ID Guarantor Name 02/05/2019 1 [place]ICARE [place] [employer] Mckenna Hancock [id number] Mckenna Hancock 02/05/2019 2 [facility] [id number] 1 Mckenna Chavesury [id number] Mckenna Hancock Notes Date Note Type Note [...] Tamsulosin was causing dizziness. David Noguera MD [address] [place] [address], [address], [facility]. 02/05/2019 09:27:31 OBGyn Episode No OBEpisode recorded.
--- OUTSIDE RECORDS SUMMARY | 2024-04-09 08:14 | XMS_ITS | Clinical Summary ---
Author Organization [facility] Address [address] [address] Phone Care Team Providers Care Tool Grinder Operator Name Role Phone Ailyn Garzon MD Primary Care Provider [phone] Allergies Active Allergy Reactions Criticality Noted Date [...] Office Visit [facility]. [address] [place] [phone] Jw Modi MD Chronic kidney disease, stage 2 (mild) (Primary Dx); Monoclonal gammopathy of undetermined significance (MGUS); Osteoporosis; Diabetes mellitus, not otherwise specified (HCC); Hypertension; Dyslipidemia; Hypercalcemia 02/02/2024 Office Communication [facility]. [address] [place] [phone] Alia Anaya 01/31/2024 Travel from Last 3 [...] Office Visit [facility] [address] [phone] Chris Gonzáles MD [address] [phone] Health Maintenance Due Date Last Done Comments [...] Glucose 108(H) 70 - 99 mg/dL [facility] BUN 27 8 - 27 mg/dL [facility] Creatinine 1.07(H) 0.57 - 1.00 mg/dL [facility] eGFR CKD-EPI CR 2020 55(L) >59 mL/min/1.7 3 [facility] BUN/Creatinine Ratio 25 12 - 28 [facility] Sodium 138 134 - 144 mmol/L [facility] Potassium 5.1 3.5 - 5.2 mmol/L [facility] Chloride 101 96 - 106 mmol/L [facility] Bicarbonate (CO2) 18(L) 20 - 29 mmol/L [facility] Calcium 10.2 8.7 - 10.3 mg/dL [facility] Albumin 4.4 3.8 - 4.8 g/dL [facility] Phosphorus 4.0 3.0 - 4.3 mg/dL [facility] Blood (Blood, Venous) 02/02/2024 10:39 AM EST 02/02/2024 us Jw Modi MD LAB BLOOD ORDERABLES [facility] [address] [place] [address] * (ABNORMAL) Hemoglobin A1c (2023 11:26 AM EDT) Hemoglobin A1C 7.2(H) 4.8 - 5.6 % [facility] Comment: ? Prediabetes: 5.7 - 6.4 ? Diabetes: >6.4 ? Glycemic control for adults with diabetes: <7.0 Blood (Blood, Venous) 2023 11:26 AM EDT 2023 Narrative [facility] - 05/24/2023 3:06 AM EDT Performed at: ??01 - [facility] [address] ??[id number] Inspecting Supervisor: Kortney Alves MD, Phone: ??[phone] Alexandra Lara MD LAB BLOOD ORDERABLES Final Result [facility] from Last 3 Months or Most Recently Relevant to Health Maintenance Insurance MEDICARE [facility] MEDICARE [facility] Care Teams Tool Grinder Operator Relationship Specialty Start Date End Date Ailyn Garzon MD [facility] [address] [place], [place] PCP - General Internal Medicine 09/10/21
--- OUTSIDE RECORDS SUMMARY | 2024-04-09 08:14 | XMS_ITS | Encounter Summary ---
Author Organization [facility] Address [address] [facility] [address] [place] [address] Phone Care Team Providers Care Hooking Machine Operator Name Role Phone Ailyn Garzon MD Primary Care Provider [phone] Encounter Details Date Type Department Care Team (Late Contact Info) Description 11/13/2021 Documentation Only [facility] [address] [facility] [address] [place] [address] Tamara Hendrickson Social History Tobacco [...] Visit [facility] [address] [phone] Chris Gonzáles MD [address] [facility] [address] [place] [address] documented as of this encounter Visit Diagnoses Not on filedocumented in this encounter Care Teams Hooking Machine Operator Relationship Specialty Start Date End Date Ailyn Garzon MD [facility] [address] [place] PCP - General Internal Medicine 09/10/21 documented as of this encounter
--- NOTE | 2024-04-09 08:21 | A.OFFPC_ITS ---
Vital Signs 04/09/24 08:22 Height 5 ft 1 in Weight 158 lb 6 oz BMI 29.9 BP 122/84 Blood Pressure Location Lt brachial Position Sitting Pulse 70 Pulse Source Pulse Oximeter Pulse Oximetry (%) 98 Oxygen Delivery Method Room Air Intake Visit Reasons: Dr. Holt surgery 04/12 & 04/22 Public Health Aide Required: No Accompanied by: Self / Same As Patient Allergies atorvastatin Adverse Reaction (Intermediate, Verified 04/09/24 08:38) myalgia dulaglutide [From Trulicity] Adverse Reaction (Intermediate, Verified 04/09/24 08:38) nausea glipizide Adverse Reaction (Intermediate, Verified 04/09/24 08:38) patient Medication List - Last Reconciled 04/09/24 by Salma Archibald PA-C amlodipine 5 mg PO DAILY ascorbic acid (vitamin C) 500 mg PO DAILY aspirin 81 mg PO DAILY blood sugar diagnostic ([employer] Ultra Test strips) 4x daily blood-glucose sensor (MicroVision G7 Sensor device) As directed change every 10 days calcium citrate 500 mg (2 x 250 mg calcium) PO BID clotrimazole 1% 1 appl topical BID 4 weeks doxepin (Silenor) 3 mg PO BEDTIME PRN ferrous sulfate 325 mg PO DAILY gabapentin 200 mg (2 x 100 mg) PO BEDTIME 90 days insulin aspart U-100 (Novolog FlexPen U-100 Insulin aspart) 10 units (0.1 mL) subcut TID insulin degludec (Tresiba FlexTouch U-100 insulin) 30 units (0.3 mL) subcut DAILY losartan 100 mg PO DAILY metformin 1,000 mg PO BID 90 days pen needle, diabetic As directed rosuvastatin 40 mg PO DAILY tirzepatide (Mounjaro) 5 mg (0.5 mL) subcut QWEEK Tobacco use date assessed: 04/09/24 Fall risk assessment: No Falls in past year Last assessed Fall Risk: 04/09/24 Dental Screening Dental Screen Date: 04/09/24 Did you have a dental visit in the last 12 months?: Yes Did you have a dental problem in the last 6 months where you did not have access to dental care?: No Was dental information given to patient?: Patient has dentist HPI Dr. Holt surgery 04/12 & 04/22 HPI Details 73-year-old female with past medical his tory of hypertension, diabetes mellitus, insomnia, hypercholesterolemia, GERD, chronic kidney disease last seen 02/2024 coming in for preoperative exam.? In review of the notes, patient had stress test completed 03/2024 showing normal myocardial perfusion and normal ejection fraction. Having cataract surgery with Lena Holt. Patient has had surgery in the past without complication. No history of CHF, NE or CVA. diabetes mellitus: Last A1c 7.4% which is acceptable for surgery hypertension: Continue on current blood pressure medication. Blood pressure well controlled at this time [facility] Medical History Abnormal SPEP Vaginitis Diabetes mellitus Breast cancer screening Dysuria SOB (shortness of breath) on exertion Guaiac positive stools Cough CKD (chronic kidney disease) Vitamin D deficiency Thyroid nodule H. pylori duodenitis Esophageal hernia Tubular adenoma of colon Common bile duct dilatation GERD (gastroesophageal reflux disease) Hypercholesterolemia Osteoporosis Hypertension Type 2 diabetes mellitus with hyperglycemia Insomnia Surgical History History of back surgery S/P epidural steroid injection Status post lumbar spine surgery for decompression of spinal cord H/O: hysterectomy History of partial hysterectomy Family History Father No problems noted. Mother Diabetes Social History Household Members: None Housing: House Are you a primary manager wound care to a significant other at home: No Alcohol intake: never Patient Tobacco Use Status: Never used Tobacco Tobacco use type: Cigarette e-Cigarette/Vaping Use: Never Used Second Hand Smoke Exposure: No service: No Current occupational status: retired Cognitive needs: No Hearing needs: No Vision needs: Yes (Glasses) Questionnaire PHQ-9 Over the last 2 weeks, how often have you been bothered by any of the following problems? 1. Little interest or pleasure in doing things: not at all 2. Feeling down, depressed, or hopeless: not at all 3. Trouble falling or staying asleep, or sleeping too much: not at all 4. Feeling tired or having little energy: not at all 5. Poor appetite or overeating: not at all 6. Feeling bad about yourself - or that you are a failure or have let yourself or your family down: not at all 7. Trouble concentrating on things, such as reading the newspaper or watching television: not at all 8. Moving or speaking so slowly that other people could have noticed. Or the opposite - being so fidgety or restless that you have been moving around a lot more than usual: not at all 9. Thoughts that you would be better off or of hurting yourself in some way: not at all Total score: 0 Depression Screening Interpretation: Negative Depression Screening Done: Yes Source: Developed by Drs. Luis Grewal, Keysha Monreal, Edgar Bernardo and colleagues, with an educational rachana from [employer] Thrive Questionnaire Date Thrive assessed: 04/09/24 I am a: Patient What is your living situation today?: I have a steady place to live Within the past 12 months, did the food you bought not last and you didn't have the money to get more?: Never true Within the past 12 months, did you worry whether your food would run out before you got money to buy more?: Never true Do you have trouble paying for medicines?: No Do you have trouble getting transportation to medical appointments?: No Do you have trouble paying your heating and electricity bill?: No Do you have trouble taking care of your child, family member or friend?: No Do you have trouble with day-to-day activities such as bathing, preparing meals, shopping, managing finances, etc.?: No Are you currently unemployed and looking for a job?: No Are you interested in more education?: No Please select the resources that you would like help with: None Currently or been in a relationship where the following occur: No concerns reported THRIVE Score: 0 AUDIT C Alcohol Use Questionnaire (AUDIT-C) 1. How often do you have a drink containing alcohol?: Never 3. How often do you have six or more drinks on one occasion?: Never Total Score: 0 NASRA-7 AMB Questionnaire NASRA-7 Date NASRA - 7 assessed: 04/09/24 Feeling nervous, anxious, or on edge: 0 = Not at all Not being able to stop or control worryin = Not at all Worrying too much about different things: 0 = Not at all Trouble relaxin = Not at all Being so restless that it is hard to sit still: 0 = Not at all Becoming easily annoyed or irritable: 0 = Not at all Feeling afraid as if something awful might happen: 0 = Not at all Total NASRA-7 score (0-4 normal; 5-9 mild; 10-14 moderate; 15-21 severe): 0 Source: Developed by Drs. Luis Grewal, Keysha Monreal, Edgar Bernardo and colleagues, with an educational rachana from [employer] NASRA-7 Assessment Billing NASRA-7 Assessment Tool: NASRA-7 Assessment 91985 Review of Systems Const Denies body aches, Denies chills, Denies fever(s), Denies headache(s) and Denies poor appetite Eyes Reports no additional complaints ENT Denies dysphagia, Denies dizziness, Denies headache(s) and Denies odynophagia Card Denies chest pain, Denies syncope, Denies edema, Denies irregular heart rhythm, Denies lightheadedness and Denies dyspnea Resp Denies cough and Denies dyspnea GI Denies abdominal pain, Denies constipation, Denies dysphagia, Denies diarrhea, Denies nausea, Denies odynophagia and Denies vomiting Reports no additional complaints Musc Reports no additional complaints and Denies abnormal gait Skin/Breast Reports system reviewed and no additional complaints, except as documented Neuro Denies abnormal gait, Denies dizziness, Denies syncope and Denies headache(s) Psych Reports no additional complaints Physical exam (Primary Care) Vital Signs: Last Vital Signs Pulse 70 04/09/24 08:22 BP 122/84 04/09/24 08:22 Pulse Ox 98 04/09/24 08:22 Oxygen Delivery Method Room Air 04/09/24 08:22 BMI result Body Mass Index 29.9 Tobacco/Smoking Status: Tobacco use Status Tobacco use date assessed 04/09/24 04/09/24 08:29 Patient Tobacco Use Status Never used Tobacco 04/09/24 08:29 Tobacco use type Cigarette 04/09/24 08:29 e-Cigarette/Vaping Use Never Used 04/09/24 08:29 PHQ-9: PHQ-9 Score PHQ-9: Total score 0 04/09/24 08:29 Depression Screening Interpretation: Negative Thrive Assessment: Date of Thrive Assessment Date Thrive assessed 04/09/24 04/09/24 08:29 Currently or been in a relationship where the following occur: No concerns reported Const General: cooperative, healthy appearing, comfortable and no acute distress Orientation/consciousness: patient oriented x3 HENMT Head: Yes normocephalic Ears: hearing grossly normal bilaterally General nose exam: Normal external nose present Eyes General: appearance normal, both eyes and all related structures Conjunctivae: conjunctivae normal Neck Neck: Yes full ROM and Yes no lymphadenopathy Resp Effort & Inspection: normal respiratory effort Auscultation: clear to auscultation bilaterally, no crackles, no rales, no rhonchi and no wheezes Cardio Rate: regular rate Rhythm: regular rhythm Skin General skin exam: no rashes or lesions noted Neuro General: patient oriented x3 Gait exam (Neuro): Normal gait present Extrem General: Yes normal to inspection, Yes full ROM and No edema Psych Affect: normal affect Attitude: cooperative Insight: Good insight present (Psych) Judgement: Good judgement present (Psych) Coding Level of Care Code Est Pt Level 3 (53089) Diagnoses Pre-op examination Z01.818 Additional Codes NASRA-7 Assessment Billing - NASRA-7 Assessment Tool: NASRA-7 Assessment 37360 ([id number]) Assessment & Plan Assessment & Plan (1) Pre-op examination: Code(s): Z01.818 - Encounter for other preprocedural examination Category: Medical Plan: Regarding preop clearance, the patient is at moderate risk for proposed surgery. Reviewed with the patient that no surgery is completely free of risk and that this examination is to assist the surgeon in reviewing informed consent. Discussed with the patient she needs to discontinue Mounjaro one week prior to surgery. EKG and blood work evaluated . No further workup needed at this time and may proceed with the contemplated procedure. Thank you very much for letting me participate in the care of this patient As modern cataract surgeries rarely cause any bleeding, she is advised that he should continue on his low dose Aspirin 81 mg QD but is advised that I will leave it up to the discretion of the sheep killer performing the procedure if he is comfortable with patient being on Aspirin or not for his eye surgery Plan This note was constructed using voice recognition software. While every effort has been made to ensure accuracy and model builder display, still areas may have been included sometimes these areas may affect the content or meeting of the given symptoms. Total time spent caring for the patient today was 20 minutes. This includes time spent before the visit reviewing the chart, time spent during the visit, and time spent after the visit and documentation. Orders: Orders Comprehensive Met. Panel Today E11.22 - Type 2 diabetes mellitus with diabetic chronic kidney disease, N18.2 - Chronic kidney disease, stage 2 (mild), Z01.818 - Encounter for other preprocedural examination Complete Blood Count Auto Diff Today D47.2 - Monoclonal gammopathy, R06.02 - Shortness of breath, Z01.818 - Encounter for other preprocedural examination
[2024-04-09 08:22] VITALS: BP 122/84; PULSE 70; O2SAT 98; BMI 29.9
== END 2024-04-09 08:57 | disposition home or self-care (01) ==
PROVIDERS: PCP Internal Medicine
DX: Z01.818 Encounter for other preprocedural examination (principal)

== ENCOUNTER 2024-06-03 07:54 | Outpatient (AMB) | payer MEDICARE, OTHER, SELFPAY ==
--- NOTE | 2024-06-03 07:58 | MHC.OFFVIS ---
Vital Signs 06/03/24 08:01 Height 5 ft 3.31 in Weight 158 lb 4.67 oz BMI 27.8 BP 128/62 Blood Pressure Location Rt brachial Position Sitting Pulse 77 Pulse Source Pulse Oximeter Pulse Oximetry (%) 99 Oxygen Delivery Method Room Air Intake Visit Reasons: Osteoporosis Intake Note: Patient present today for Osteoporosis follow up. Box Car Loader Required: No Information Interpreted: non-clinical only Accompanied by: Self / Same As Patient Allergies atorvastatin Adverse Reaction (Intermediate, Verified 06/03/24 08:03) myalgia dulaglutide [From Trulicity] Adverse Reaction (Intermediate, Verified 06/03/24 08:03) nausea glipizide Adverse Reaction (Intermediate, Verified 06/03/24 08:03) patient Medication List - Last Reconciled 06/03/24 by Loly Najera, RN amlodipine 5 mg PO DAILY ascorbic acid (vitamin C) 500 mg PO DAILY aspirin 81 mg PO DAILY blood sugar diagnostic (TopprTouch Ultra Test strips) 4x daily blood-glucose sensor ([employer] G7 Sensor device) As directed change every 10 days calcium citrate 500 mg (2 x 250 mg calcium) PO BID clotrimazole 1% 1 appl topical BID 4 weeks doxepin (Silenor) 3 mg PO BEDTIME PRN ferrous sulfate 325 mg PO DAILY gabapentin 200 mg (2 x 100 mg) PO BEDTIME 90 days insulin aspart U-100 (Novolog FlexPen U-100 Insulin aspart) 10 units (0.1 mL) subcut TID insulin degludec (Tresiba FlexTouch U-100 insulin) 30 units (0.3 mL) subcut DAILY ketorolac 0.5% drps ophthalmic (eye) losartan 100 mg PO DAILY metformin 1,000 mg PO BID 90 days pen needle, diabetic As directed rosuvastatin 40 mg PO DAILY tirzepatide (Mounjaro) 5 mg (0.5 mL) subcut QWEEK HPI Comments Details: 74 YO F with PMHx T2DM who is seen in F/U for Osteoporosis . Of note, the patient is somewhat of a poor historian. 2) Osteoporosis: She has a longstanding history of hypercalcemia. She also has a long standing history of Osteoporosis of her spine and hip. She appears to have failed treatment with Fosamax. BMD has acutely worsened over the past 2 years. After our initial visit we completed a full workup for secondary causes of Osteoporosis. SPEP revealed possible elevated M protein. She was referred to Heme-Onc and had additional testing. This was thought to represent MGUS. She continues to follow with Heme-Onc. First diagnosed in her late 50's. Received treatment in the past with Fosamax for 1 years 5 yrs a go , but stopped this around the age of 65. Tolerated treatment well without complication. No history of pathologic fracture or ONJ. Has 0 servings of dietary calcium. Does not take Calcium. Takes 5000 IU of Vitamin D daily. Fracture history: Did have a fracture of her leg. This was a fragility fracture. She had a hysterectomy in her mid 40's and never had symptoms of menopause after. History of Kidney stones: Denies Family history of Osteoporosis in her Mother. UTD on dental cleanings and sees dentist every 6 months. No planned upcoming dental work or extractions. We discussed Prolia and she was initially agreeable to this, but then changed her mind and refused treatment. Also has a NTMNG. She underwent FNA biopsy 08/15/2022 of her left mid pole 1.7 cm thyroid nodule with benign (bethesda category II) cytology. DXA: 07/30/2022 FINDINGS: AP SPINE L1-L2 (excluding L3 and L4): The data of L1-L4 has been changed to exclude the L3 and L4 vertebral bodies, because hardware at these levels may cause overestimation of lumbar spine density. Current: BMD 0.771 g/cm2, Z-score -1.5, T-score -3.3, osteoporosis, 14.6% increase from previous, 3.1% decrease from baseline (<5% change is not significant). Prior: BMD 0.673 g/cm2. Baseline: BMD 0.796 g/cm2. LEFT FEMUR, NECK: Current: BMD 0.652 g/cm2, Z-score -1.0, T-score -2.8, osteoporosis. Prior: BMD 0.641 g/cm2. Baseline: BMD 0.716 g/cm2. LEFT FEMUR, TOTAL: Current: BMD 0.641 g/cm2, Z-score -1.3, T-score -2.9, osteoporosis, 1.6% increase from previous, 11.8% decrease from baseline (<5% change is not significant). Prior: BMD 0.631 g/cm2. Baseline: BMD 0.727 g/cm2. LEFT FOREARM RADIUS 33%: BMD 0.517 g/cm2, Z-score -2.1, T-score -4.1, osteoporosis. Prior:? Not previously measured. Labs: Laboratory Tests 03/27/22 08:20 Creatinine 1.05 Estimated GFR 52 The patient is a 74-year-old female presenting with concerns related to osteoporosis and hypercalcemia management. 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 Her calcium levels, tested last in October, were noted as a little high. Consequently, she was advised to undergo tests at [facility] to reassess calcium and parathyroid hormone levels. The potential presence of a non-neoplastic parathyroid gland growth might be affecting her bone density. She was previously advised to start Prolia for osteoporosis, but the initiation was postponed due to fluctuating calcium results. An oncological review led to her diagnosis of Monoclonal Gammopathy of Undetermined Significance (MGUS), which is currently under surveillance for progression. For her diabetes management, a review with the diabetes clinic is ongoing, with plans to adjust Mounjaro from 5 mg to a tolerable 2.5 mg due to gastrointestinal side effects. Her endocrinological history is further nuanced by the diagnosis of a multinodular goiter, previously evaluated with ultrasounds and biopsied twice, without emergent findings. Continuous monitoring has been planned to adjust for her complex profile incorporating endocrine dysfunctions. [facility] Medical History Abnormal SPEP Vaginitis Diabetes mellitus Breast cancer screening Dysuria SOB (shortness of breath) on exertion Guaiac positive stools Cough CKD (chronic kidney disease) Vitamin D deficiency Thyroid nodule H. pylori duodenitis Esophageal hernia Tubular adenoma of colon Common bile duct dilatation GERD (gastroesophageal reflux disease) Hypercholesterolemia Osteoporosis Hypertension Type 2 diabetes mellitus with hyperglycemia Insomnia Surgical History Hx of cataract surgery History of back surgery S/P epidural steroid injection Status post lumbar spine surgery for decompression of spinal cord H/O: hysterectomy History of partial hysterectomy Family History Father No problems noted. Mother Diabetes Social History Household Members: None Housing: House Are you a primary healthcare network consultant to a significant other at home: No Alcohol intake: never Patient Tobacco Use Status: Never used Tobacco Tobacco use type: Cigarette e-Cigarette/Vaping Use: Never Used Second Hand Smoke Exposure: No service: No Current occupational status: retired Cognitive needs: No Hearing needs: No Vision needs: Yes (Glasses) Physical Exam Vital Signs: Last Vital Signs Pulse 77 06/03/24 08:01 BP 128/62 06/03/24 08:01 Pulse Ox 99 06/03/24 08:01 Oxygen Delivery Method Room Air 06/03/24 08:01 BMI result Body Mass Index 27.8 Assessment & Plan Assessment & Plan (1) Osteoporosis: Code(s): M81.0 - Age-related osteoporosis without current pathological fracture Category: Medical Plan: Secondary workup was negative except for MGUS. Patient is currently on calcium and vitamin-D with high risk for fracture. Repeat calcium and PTH have been normal but will repeat again at [facility] ( [facility]) Assuming PTH and calcium and normal, Will talk to the patient about initiating Prolia 60 mg q.6 months. 1. Hypercalcemia Persistent hypercalcemia suspected to be due to parathyroid hyperplasia. Further lab testing and potential surgical intervention considered. 2. Osteoporosis Postpone Prolia pending verification of calcium levels. Evaluate stabilization before proceeding with therapy to mitigate fracture risk. 3. Monoclonal Gammopathy of Undetermined Significance (MGUS) Continue surveillance under current oncology care. No immediate action required unless otherwise indicated by lab results I discussed the provisional diagnoses, including hypercalcemia potential due to parathyroid hyperplasia, and considered surgical intervention if lab results confirmed the necessity. The multifaceted treatment approach involves adjusting her diabetes medication while considering bone health management through Prolia once hypercalcemic issues stabilize. Diagnostic laboratory study recommendations and locations, including limits of our in-house lab, were explained to ensure clarity and facilitate effective follow-up. I emphasized continued monitoring and future intervention alignment with her osteoporosis and hyperparathyroid management. Prospective coordination with oncology and follow-up visits with specialists were also discussed. The patient was advised that we explore the options with her son during the follow-up visit for enhanced decision-making. - Complete the blood tests at [facility] as soon as possible. - Continue monitoring blood glucose, ensure participation with the diabetes team. - Schedule follow-up with Dr. Quesada for thyroid assessment after obtaining lab results. - Plan a follow-up appointment within four weeks to review lab results and reconsider Prolia initiation. - Contact healthcare provider with any health changes or concerns before scheduled follow-ups. The patient had an opportunity to ask questions regarding treatment plan. The patient expressed understanding and agreement with the above treatment plan. Patient was informed and verbally consented to the use of an ambient scribe for clinic note documentation during this visit. (2) Type 2 diabetes mellitus with hyperglycemia: Comment: Dr. Riggins Code(s): E11.65 - Type 2 diabetes mellitus with hyperglycemia Category: Medical Qualifiers: Diabetes mellitus watermaster insulin use: with skilled nursing use Qualified Code(s): E11.65 - Type 2 diabetes mellitus with hyperglycemia; Z79.4 - long term care social worker (current) use of insulin Plan: 4. Type 2 Diabetes Mellitus Reduce Mounjaro dose to manage side effects. Ensure engagement with the diabetes primary care team for ongoing management. (3) Thyroid nodule: Code(s): E04.1 - Nontoxic single thyroid nodule Category: Medical Plan: Status post FNA of right midpole nodule with benign cytology. Recent US showed R lower pole nodule as well I have patient follow up with Dr. Quesada an expert in thyroid ultrasound practice Continue surveillance through ultrasound evaluations and consider further assessments of FNA if indicated by physical findings and repeat ulcer. Orders: Orders Parathyroid Hormone Intact Today M81.0 - Age-related osteoporosis without current pathological fracture Medications: New tirzepatide (Mounjaro) for 4 weeks 2.5 mg (0.5 mL) subcut QWEEK 2 mL 4RF Discontinued tirzepatide (Mounjaro) Discontinued Reason: Doctor's Order 5 mg (0.5 mL) subcut QWEEK 2 mL 5RF Coding Level of Care Code Est Pt Level 3 (37371) Diagnoses Osteoporosis M81.0 Type 2 diabetes mellitus with hyperglycemia, with long-term current use of insulin E11.65; Z79.4 Diabetes mellitus skilled nursing insulin use: with skilled nursing use Thyroid nodule E04.1
--- OUTSIDE RECORDS SUMMARY | 2024-06-03 07:58 | XMS_ITS | Data Portability ---
Author Organization [facility] zuuka!, [facility]admin Address [address] [place] [phone] Care Team Providers Care Dairy Science Teacher Name Role Phone DAVID NOGUERA Urologist FABRICIO [...] dipstick, auto 2018 019 rigo [facility] [place], [address] [place] [address], [facility] [address], [place], [address], 9 09:26:31 Referral None recorded. Procedures None recorded. Surgeries None recorded. Imaging None recorded. Medication Orders None recorded. Patient TargetsNo targets recorded. Patient Instructions Encounter Date Encounter Id Patient Instructions Last Modified By Organization Details Last Modified Time 02/05/2019 [id number] A healthy lifestyle: care instructions rigo Not available 02/05/2019 09:26:31 abdominal pain: care instructions [email or web address] Not available 02/05/2019 09:26:31 Reason for Referral None Reported. Results Created Date Observation Date Name Description Value Unit Range Abnormal Flag Note LastModifiedBy Organization Detail LastModifiedTime 02/06/20 19 02/05/2019 urina lysis , dipst ick, auto Unknown Analyte 2+ Not Available [facility] [address], [address], 02/05/2019 09:17:47 02/06/20 19 02/05/2019 urina lysis , dipst ick, auto Unknown Analyte negati ve Not Available [facility] [address], [address], 02/05/2019 09:17:47 02/06/20 19 02/05/2019 urina lysis , dipst ick, auto Unknown Analyte Negati ve Not Available [facility] [address], [address], 02/05/2019 09:17:47 02/06/20 19 02/05/2019 urina lysis , dipst ick, auto Unknown Analyte 5 Not Available [facility] [address], [address], 02/05/2019 09:17:47 02/06/20 19 02/05/2019 urina lysis , dipst ick, auto Unknown Analyte Trace Not Available [facility] [address], [address], 02/05/2019 09:17:47 02/06/20 19 02/05/2019 urina lysis , dipst ick, auto Unknown Analyte 1.025 Not Available [facility], [address], 02/05/2019 09:17:47 02/06/20 19 02/05/2019 urina lysis , dipst ick, auto Unknown Analyte Negati ve Not Available [facility] [place] [address], [address], 02/05/2019 09:17:47 02/06/20 19 02/05/2019 urina lysis , dipst ick, auto Unknown Analyte Negati ve Not Available [facility] [place] [address], [address], 02/05/2019 09:17:47 02/06/20 19 02/05/2019 urina lysis , dipst ick, auto Unknown Analyte Negati ve Not Available [facility] [place] [address], [address], 02/05/2019 09:17:47 02/04/20 19 12/03/2018 CT, abdom en + pelvi s, w/wo contr ast No observ ation record ed. [email or web address] Not Available 2018 18:13:50 Result Notes None recorded. Problems Name Problem SNOMED Code Status Onset Date Resolution Date Notes Provider Name and Address Organization Details Recorded Time Pain in pelvis 90882387 Active 2018 David Noguera MD [address] [place] [address], [phone], [facility] 9 08:28:19 Left lower quadrant pain 759361461 Active 2018 David Noguera MD [address] [place] [address], [phone], [facility] 9 08:28:40 Problem Notes None recorded. Procedures Surgical History Date Name Laterality Status Provider Name and Address Organization Details Recorded Time hysterectomy completed Wendy Lopez [facility] 02/05/2019 08:23:53 Imaging Results Imaging [...] Updated DateTime 9 157.48 cm 27.1 kg/m2 22703.6 7 g 92 /min 140 mm[Hg] 87 mm[Hg] Wendy Lopez [facility] 9 08:15:46 Social History Question Answer Notes LastModified by Organizat ion Details LastModified Time Tobacco Smoking Status Never Smoker Wendy Lopez [facility] 02/05/2019 08:21:53 Do You Have An Advance [...] SNOMED-CT Code Diagnosis ICD10 Code Diagnosis Note [id number] Rich Noguera MD [facility] [address] [facility] [address] [facility] [place] [address] 02/05/2019 07:56:41 02/05/2019 09:09:23 Pain in pelvis 76396633 R10.2 Patient has vague characterf elt in [...] for her geographic ally to travel from [facility]. She will fu as needed with local urologist Left lower quadrant pain 776084179 R10.32 Needs GI assessment and orthopedic evaluation Health Concerns Section Related Observation LastModified by Organization Detai ls LastModified Time None Recorded Concern Status LastModified by Organization Details LastModified Time None Recorded Advance Directives Directive N: healthcare proxy Hossein Hancock (son) Payers Encounter Date Sequence Insurance Name Policy Number Policy Garduno Covered Member ID Garduno Member ID Guarantor Name 02/05/2019 1 MEDICARE [place]: [employer] Mckenna Hancock [id number] Mckenna Hancock 02/05/2019 2 [facility] [id number] Mckenna Hancock [id number] Mckenna Hancock Notes Date Note Type Note [...] Tamsulosin was causing dizziness. David Noguera MD [address] [place] [address], [phone], [facility]. 02/05/2019 09:27:31 OBGyn Episode No OBEpisode recorded.
--- OUTSIDE RECORDS SUMMARY | 2024-06-03 07:58 | XMS_ITS | Encounter Summary ---
Author Organization [facility] Address [address] [facility] [address] [place] [address] Phone Care Team Providers Care Last Inserter Name Role Phone Ailyn Garzon MD Primary Care Provider [phone] Encounter Details Date Type Department Care Team (Late Contact Info) Description 11/13/2021 Documentation Only [facility] [address] [facility] [address] [place] [address] Tamara Hendrickson Social History Tobacco [...] Visit [facility] [address] [phone] Chris Gonzáles MD [address] [facility] [address] [place] [address] documented as of this encounter Visit Diagnoses Not on filedocumented in this encounter Care Teams Last Inserter Relationship Specialty Start Date End Date Ailyn Garzon MD [facility] [address] [place] PCP - General Internal Medicine 09/10/21 documented as of this encounter
--- OUTSIDE RECORDS SUMMARY | 2024-06-03 07:59 | XMS_ITS | Clinical Summary ---
Author Organization [facility] Address [address] [address] Phone Care Team Providers Care Monkey Breeder Name Role Phone Ailyn Garzon MD Primary Care Provider [phone] Allergies Active Allergy Reactions Criticality Noted Date [...] time each day 90 tablet 3 4 Active Active Problems Problem Noted Date Diagnosed [...] 02/05/2019 11/18/2023 Depressive disorder 10/23/2011 10/24/19 22 Immunizations Immunization Administration Dates Next Due DTaP 05/27/2008 Influenza [...] Visit [facility] [address] [phone] Chris Gonzáles MD [address] [address] Health Maintenance Due Date Last Done Comments Breast Cancer Screening 1950 Colorectal Cancer Screening: Annual FOBT 05/24/1999 Colorectal Cancer Screening: Colonoscopy 05/24/1999 Colorectal Cancer Screening: Sigmoidoscopy 05/24/1999 Pneumococcal Vaccine: 50+ Years (2 of 2 - PCV) 04/28/2009 04/28/2008 Diabetes: Ophthalmology Exam 10/23/2021 Diabetes: Pedal Pulse Checked 10/23/2021 Diabetes: Sensory Foot Exam 10/23/2021 Diabetes: Visual Foot Exam 10/23/2021 Diabetes: Hemoglobin A1C 08/22/2023 024, 10/23/2021 Influenza Vaccine (Season Ended) 2024 02/03/2007 Hepatitis B Vaccine Aged Out No longe r eligible based on patient's age to complete this topic Procedures Procedure Name Priority Date/Time Associated Diagnosis Comments HEMOGLOBIN A1C Routine 2023 11:26 AM EDT Chronic kidney disease, not otherwise specified from Last 3 Months or Most Recently Relevant to Health Maintenance Results * (ABNORMAL) Hemoglobin A1c (2023 11:26 AM EDT) Hemoglobin A1C 7.2(H) 4.8 - 5.6 % [facility] Comment: ? Prediabetes: 5.7 - 6.4 ? Diabetes: >6.4 ? Glycemic control for adults with diabetes: <7.0 Blood (Blood, Venous) 2023 11:26 AM EDT 2023 Narrative [facility] - 05/24/2023 3:06 AM EDT Performed at: ??01 - [facility] [address] ??[id number] Microwave Supervisor: Kortney Alves MD, Phone: ??[phone] Alexandra Lara MD LAB BLOOD ORDERABLES Final Result [facility] from Last 3 Months or Most Recently Relevant to Health Maintenance Insurance Medicare [facility] Medicare [facility] Care Teams Monkey Breeder Relationship Specialty Start Date End Date Ailyn Garzon MD [id number] [place] PCP - General Internal Medicine 09/10/21
[2024-06-03 08:01] VITALS: BP 128/62; PULSE 77; O2SAT 99; BMI 27.8
== END 2024-06-03 08:27 | disposition home or self-care (01) ==
LOC: HO.ENCR 07:55
PROVIDERS: PCP Internal Medicine; Visit Provider Internal Medicine Endocrinology, Diabetes & Metabolism
DX: M81.0 Age-related osteoporosis without current pathological fracture (principal); E11.65 Type 2 diabetes mellitus with hyperglycemia; Z79.4 Long term (current) use of insulin; E04.1 Nontoxic single thyroid nodule
CPT/HCPCS: 99213

== ENCOUNTER → 2024-06-03 07:54 | Outpatient (BNVA) | payer MEDICARE, OTHER, SELFPAY | PROVIDERS: PCP Internal Medicine; Visit Provider Internal Medicine Endocrinology, Diabetes & Metabolism | DX: M81.0 Age-related osteoporosis without current pathological fracture (principal); E11.65 Type 2 diabetes mellitus with hyperglycemia; E04.1 Nontoxic single thyroid nodule; Z79.4 Long term (current) use of insulin | CPT/HCPCS: 99212 ==

== ENCOUNTER 2024-06-24 08:21 | Outpatient (AMB) | payer MEDICARE, OTHER, SELFPAY ==
--- NOTE | 2024-06-24 08:22 | MHC.OFFVIS ---
Vital Signs 06/24/24 08:27 Height 5 ft 3.31 in Weight 154 lb 1.65 oz BMI 27.0 BP 122/66 Blood Pressure Location Rt brachial Position Sitting Pulse 76 Pulse Source Pulse Oximeter Pulse Oximetry (%) 98 Oxygen Delivery Method Room Air Intake Visit Reasons: Osteoporosis Intake Note: Patient present today to follow up on Diabetes Mellitus and Osteoporosis. Patient receives Dexcom supplies through: [employer] Last Diabetic Eye exam: approx 1 month ago Last Podiatry Visit: Does not see a Public Address Servicer Random Glucose: 182 mg/dl HgA1C: 8.5% 06/24/2024 Claim Approver Required: No Accompanied by: Self / Same As Patient Allergies atorvastatin Adverse Reaction (Intermediate, Verified 06/24/24 08:28) myalgia [facility]ulaglutide [facility] Adverse Reaction (Intermediate, Verified 06/24/24 08:28) nausea glipizide Adverse Reaction (Intermediate, Verified 06/24/24 08:28) patient Medication List - Last Reconciled 06/24/24 by Luis Brooks MD amlodipine 5 mg PO DAILY ascorbic acid (vitamin C) 500 mg PO DAILY aspirin 81 mg PO DAILY blood sugar diagnostic (OneTouch Ultra Test strips) 4x daily blood-glucose sensor (Dexcom G7 Sensor device) As directed change every 10 days calcium citrate 500 mg (2 x 250 mg calcium) PO BID clotrimazole 1% 1 appl topical BID 4 weeks doxepin (Silenor) 3 mg PO BEDTIME PRN ferrous sulfate 325 mg PO DAILY gabapentin 200 mg (2 x 100 mg) PO BEDTIME 90 days insulin aspart U-100 (Novolog FlexPen U-100 Insulin aspart) 10 units (0.1 mL) subcut TID insulin degludec (Tresiba FlexTouch U-100 insulin) 30 units (0.3 mL) subcut DAILY ketorolac 0.5% drps ophthalmic (eye) losartan 100 mg PO DAILY metformin 1,000 mg PO BID 90 days pen needle, diabetic As directed rosuvastatin 40 mg PO DAILY tirzepatide (Mounjaro) 2.5 mg (0.5 mL) subcut QWEEK HPI Comments Details: 74 YO F with PMHx T2DM who is seen in F/U for Osteoporosis and type 2 diabetes. Of note, the patient is somewhat of a poor historian. 1) T2DM: Initially diagnosed with T2DM in 1999. Was initially started on treatment with Metformin. She started using Insulin in 2016. Current regimen Metformin 1000 mg PO BID and Tresiba 30 units daily and Novolog 10 units TID . mounjaro 2..5 mg Qwkly She has failed treatment with Trulicity as well as Glipizide. She was unable to tolerate the Trulicity due to GI distress. She was intolerant to Jardiance due to recurrent vaginal yeast infection.. She is not taking the 30 units of Tresiba consistently and sometimes takes less Uses Dexcom sensor. Download shows she is using the sensor 93% of the time. Average glucose is 171 with G mi of 7.4% and standard deviation 47 . 64% range with 36% hyperglycemia and no hypoglycemia . Pattern shows post-dinner excursion and blood sugar Reports no low sugars when she does not eat. Is aware of the rule of 15's to treat. No low sugars since her last visit. Treats lows with juice. Checks sugar after to ensure it is rising. Family history of T2DM in her Mother. Has eyes checked yearly, last eye exam 1 mo ago for cataract surgery , has retinopathy. Has neuropathy. Is on Gabapentin. Has nephropathy, on Losartan 100 mg PO daily. UAC 27.4 01/06/2021. Has HLD, on Atorvastatin 40 mg PO daily. Now on 80 mg atorvastatin . Admits to only taking 40 mg at present Denies CAD. Had diabetes education. 2) Osteoporosis: She has a longstanding history of hypercalcemia. She also has a long standing history of Osteoporosis of her spine and hip. She appears to have failed treatment with Fosamax. BMD has acutely worsened over the past 2 years. After our initial visit we completed a full workup for secondary causes of Osteoporosis. SPEP revealed possible elevated M protein. She was referred to Heme-Onc and had additional testing. This was thought to represent MGUS. She continues to follow with Heme-Onc. First diagnosed in her late 50's. Received treatment in the past with Fosamax for 1 years 5 yrs a go , but stopped this around the age of 65. Tolerated treatment well without complication. No history of pathologic fracture or ONJ. Has 0 servings of dietary calcium. Does not take Calcium. Takes 5000 IU of Vitamin D daily. Fracture history: Did have a fracture of her leg. This was a fragility fracture. She had a hysterectomy in her mid 40's and never had symptoms of menopause after. History of Kidney stones: Denies Family history of Osteoporosis in her Mother. UTD on dental cleanings and sees dentist every 6 months. No planned upcoming dental work or extractions. We discussed Prolia and she was initially agreeable to this, but then changed her mind and refused treatment. Also has a NTMNG. She underwent FNA biopsy 08/15/2022 of her left mid pole 1.7 cm thyroid nodule with benign (bethesda category II) cytology. DXA: 07/30/2022 FINDINGS: AP SPINE L1-L2 (excluding L3 and L4): The data of L1-L4 has been changed to exclude the L3 and L4 vertebral bodies, because hardware at these levels may cause overestimation of lumbar spine density. Current: BMD 0.771 g/cm2, Z-score -1.5, T-score -3.3, osteoporosis, 14.6% increase from previous, 3.1% decrease from baseline (<5% change is not significant). Prior: BMD 0.673 g/cm2. Baseline: BMD 0.796 g/cm2. LEFT FEMUR, NECK: Current: BMD 0.652 g/cm2, Z-score -1.0, T-score -2.8, osteoporosis. Prior: BMD 0.641 g/cm2. Baseline: BMD 0.716 g/cm2. LEFT FEMUR, TOTAL: Current: BMD 0.641 g/cm2, Z-score -1.3, T-score -2.9, osteoporosis, 1.6% increase from previous, 11.8% decrease from baseline (<5% change is not significant). Prior: BMD 0.631 g/cm2. Baseline: BMD 0.727 g/cm2. LEFT FOREARM RADIUS 33%: BMD 0.517 g/cm2, Z-score -2.1, T-score -4.1, osteoporosis. Prior:? Not previously measured. Labs: Laboratory Tests 03/27/22 08:20 Creatinine 1.05 Estimated GFR 52 The patient is a 74-year-old female presenting with concerns related to osteoporosis and hypercalcemia management. She is currently under review for persistent hypercalcemia, suspected to be PTH mediated. Her calcium levels, tested last in October, were noted as a little high. Consequently, she was advised to undergo tests at [facility] to reassess calcium and parathyroid hormone levels. The potential presence of a non-neoplastic parathyroid gland growth might be affecting her bone density. Labs at [facility] showed mildly elevated calcium with inappropriately normal to high normal PTH levels She was previously advised to start Prolia for osteoporosis, but the initiation was postponed due to fluctuating calcium results. An oncological review led to her diagnosis of Monoclonal Gammopathy of Undetermined Significance (MGUS), which is currently under surveillance for progression. For her diabetes management, a review with the diabetes clinic is ongoing, with plans to adjust Mounjaro from 5 mg to a tolerable 2.5 mg due to gastrointestinal side effects. Her endocrinological history is further nuanced by the diagnosis of a multinodular goiter, previously evaluated with ultrasounds and biopsied twice, without emergent findings. Continuous monitoring has been planned to adjust for her complex profile incorporating endocrine dysfunctions. [facility] Medical History Abnormal SPEP Vaginitis Diabetes mellitus Breast cancer screening Dysuria SOB (shortness of breath) on exertion Guaiac positive stools Cough CKD (chronic kidney disease) Vitamin D deficiency Thyroid nodule H. pylori duodenitis Esophageal hernia Tubular adenoma of colon Common bile duct dilatation GERD (gastroesophageal reflux disease) Hypercholesterolemia Osteoporosis Hypertension Type 2 diabetes mellitus with hyperglycemia Insomnia Surgical History Hx of cataract surgery History of back surgery S/P epidural steroid injection Status post lumbar spine surgery for decompression of spinal cord H/O: hysterectomy History of partial hysterectomy Family History Father No problems noted. Mother Diabetes Social History Household Members: None Housing: House Are you a primary healthcare technician to a significant other at home: No Alcohol intake: never Patient Tobacco Use Status: Never used Tobacco Tobacco use type: Cigarette e-Cigarette/Vaping Use: Never Used Second Hand Smoke Exposure: No service: No Current occupational status: retired Cognitive needs: No Hearing needs: No Vision needs: Yes (Glasses) Physical Exam Vital Signs: Last Vital Signs Pulse 76 06/24/24 08:27 BP 122/66 06/24/24 08:27 Pulse Ox 98 05/08/25 08:27 Oxygen Delivery Method Room Air 06/24/24 08:27 BMI result Body Mass Index 27.0 Absence of Cushingoid features. Absence of acromegalic features. Neck exam reveals nl size thyroid about 15 gms. No thyroid nodules palpable. No carotid bruits present. Lungs CTA. Heart S1 S2, Reg R/R. No M/R/ G. Skin exam reveals absence of vitiligo or acanthosis nigricans. Abdominal exam reveals Soft NT/ND with NA BS. No organomegaly present. Neck Other: . Extrem Other: Visual exam of foot performed. No ulcerations or open lesions. No onchomycosis, no callouses.Pulses 2 + distally Sensation intact to monofilament exam. Vibratory sensation sensed is intact with 128 Hz tuning fork Results AMB Hemoglobin A1c AMB Hemoglobin A1c 8.5 % Last Edit by KAVITA Reddy on 06/24/24 08:55 Results Reviewed Results Reviewed: Laboratory Last Values Glucose (Clinic) 182 mg/dL (60-115) H 06/24/24 08:41 Assessment & Plan Assessment & Plan (1) Osteoporosis: Code(s): M81.0 - Age-related osteoporosis without current pathological fracture Category: Medical Plan: Secondary workup was negative except for MGUS. Patient is currently on calcium and vitamin-D with high risk for fracture. Repeat calcium and PTH is consistent with the presence of PTH mediated hypercalcemia Assuming PTH and calcium and normal, Will talk to the patient about initiating Prolia 60 mg q.6 months. 1. Hypercalcemia Persistent hypercalcemia suspected to be due to parathyroid mediated. Considering patient's moderate to severe osteoporosis and CKD, will discuss with patient the possibility of going for parathyroid evaluation to Dr. Castaneda a parathyroid surgeon to explore the possibility parathyroid exploration 2. Osteoporosis Postpone Prolia pending verification of calcium levels. Evaluate stabilization before proceeding with therapy to mitigate fracture risk. 3. Monoclonal Gammopathy of Undetermined Significance (MGUS) Continue surveillance under current oncology care. No immediate action required unless otherwise indicated by lab results I discussed the provisional diagnoses, including hypercalcemia potential due to parathyroid mediated and considered surgical intervention if lab results confirmed the necessity. The multifaceted treatment approach involves adjusting her diabetes medication while considering bone health management through Prolia once hypercalcemic issues stabilize. Diagnostic laboratory study recommendations and locations, including limits of our in-house lab, were explained to ensure clarity and facilitate effective follow-up. I emphasized continued monitoring and future intervention alignment with her osteoporosis and hyperparathyroid management. Prospective coordination with oncology and follow-up visits with specialists were also discussed. The patient was advised that we explore the options with her son during the follow-up visit for enhanced decision-making. - Complete the blood tests at [facility] as soon as possible. - Continue monitoring blood glucose, ensure participation with the diabetes team. - Schedule follow-up with Dr. Quesada for thyroid assessment after obtaining lab results. - Plan a follow-up appointment within four weeks to review lab results and reconsider Prolia initiation. - Contact healthcare provider with any health changes or concerns before scheduled follow-ups. The patient had an opportunity to ask questions regarding treatment plan. The patient expressed understanding and agreement with the above treatment plan. Patient was informed and verbally consented to the use of an ambient scribe for clinic note documentation during this visit. (2) Type 2 diabetes mellitus with hyperglycemia: Comment: Dr. Villalta and Edith Code(s): E11.65 - Type 2 diabetes mellitus with hyperglycemia Category: Medical Qualifiers: Diabetes mellitus termination clerk insulin use: with termination clerk use Qualified Code(s): E11.65 - Type 2 diabetes mellitus with hyperglycemia; Z79.4 - terminal manager (current) use of insulin Plan: This 72-year-old white female with history of type 2 diabetes being treated with metformin , Mounjaro and basal-bolus insulin with improving adequate glycemic control and known microvascular complications namely CKD and neuropathy. Plan is to continue the current regimen . Will have her follow-up with Ashley David NP . We will check lipid profile microalbumin to creatinine ratio (3) Thyroid nodule: Code(s): E04.1 - Nontoxic single thyroid nodule Category: Medical Plan: Status post FNA of right midpole nodule with benign cytology. Recent US showed R lower pole nodule as well I have patient follow up with Dr. Quesada an expert in thyroid ultrasound practice Continue surveillance through ultrasound evaluations and consider further assessments of FNA if indicated by physical findings and repeat ulcer. Orders: Orders Microalbumin, Random (w Creat) Today E11.65 - Type 2 diabetes mellitus with hyperglycemia, Z79.4 - FPC (current) use of insulin AMB Hemoglobin A1c Today E11.65 - Type 2 diabetes mellitus with hyperglycemia, Z79.4 - terminal manager (current) use of insulin Referrals General Surgery Referral E21.3 - Hyperparathyroidism, unspecified Podiatry Referral E11.40 - Type 2 diabetes mellitus with diabetic neuropathy, unspecified Coding Level of Care Code Est Pt Level 4 (31310) Complex EM visit Add On G2211 Diagnoses Osteoporosis M81.0 Type 2 diabetes mellitus with hyperglycemia, with long-term current use of insulin E11.65; Z79.4 Diabetes mellitus [facility] insulin use: with termination clerk use Thyroid nodule E04.1
[2024-06-24 08:27] VITALS: BP 122/66; PULSE 76; O2SAT 98; BMI 27.0
--- OUTSIDE RECORDS SUMMARY | 2024-06-24 08:40 | XMS_ITS | Clinical Summary ---
Author Organization [facility] Address [address] [address] Phone Care Team Providers Care Emergency Room Physician Name Role Phone Ailyn Garzon MD Primary Care Provider [phone] Allergies Active Allergy Reactions Criticality Noted Date [...] Visit [facility] [address] [address] Chris Gonzáles MD [address] [address] Health Maintenance Due Date Last [...] AM EDT Performed at: ??01 - [facility] [address] ??[id number] Chiropractor Sole Practitioner: Kortney Alves MD, Phone: ??[phone] Alexandra Lara MD LAB BLOOD ORDERABLES Final Result [facility] from Last 3 Months or Most Recently Relevant to Health Maintenance Insurance Medicare [facility] Medicare [facility] Care Teams Emergency Room Physician Relationship Specialty Start Date End Date Ailyn Garzon MD [address] [place] PCP - General Internal Medicine 09/10/21
--- OUTSIDE RECORDS SUMMARY | 2024-06-24 08:40 | XMS_ITS | Data Portability ---
Author Organization [facility]ra[facility], [facility] Address [address] [place] [phone] Care Team Providers Care Cdl Team Truck Driver Name Role Phone DAVID NOGUERA Urologist FABRICIO RUBIO Primary Care Provider [phone] Assessment Encounter Date Assessment Date Assessment LastModified [...] dipstick, auto 2018 019 rigo [facility] [place], [address] [place] [address], [facility] [address], [place], [address], 9 09:26:31 Referral None recorded. Procedures None recorded. Surgeries None recorded. Imaging None recorded. Medication Orders None recorded. Patient TargetsNo targets recorded. Patient Instructions Encounter Date Encounter Id Patient Instructions Last Modified By Organization Details Last Modified Time 02/05/2019 [id number] A healthy lifestyle: care instructions rigo Not available 02/05/2019 09:26:31 abdominal pain: care instructions [email or web address] Not available 02/05/2019 09:26:31 Reason for Referral None Reported. Results Created Date Observation Date Name Description Value Unit Range Abnormal Flag Note LastModifiedBy Organization Detail LastModifiedTime 02/06/20 19 02/05/2019 urina lysis , dipst ick, auto Unknown Analyte 2+ Not Available [facility] [address], [address], 02/05/2019 09:17:47 02/06/20 19 02/05/2019 urina lysis , dipst ick, auto Unknown Analyte negati ve Not Available [facility] [address], [address], 02/05/2019 09:17:47 02/06/20 19 02/05/2019 urina lysis , dipst ick, auto Unknown Analyte Negati ve Not Available [facility] [address], [address], 02/05/2019 09:17:47 02/06/20 19 02/05/2019 urina lysis , dipst ick, auto Unknown Analyte 5 Not Available [facility] [address], [address], 02/05/2019 09:17:47 02/06/20 19 02/05/2019 urina lysis , dipst ick, auto Unknown Analyte Trace Not Available [facility] [address], [address], 02/05/2019 09:17:47 02/06/20 19 02/05/2019 urina lysis , dipst ick, auto Unknown Analyte 1.025 Not Available [facility], [address], 02/05/2019 09:17:47 02/06/20 19 02/05/2019 urina lysis , dipst ick, auto Unknown Analyte Negati ve Not Available [facility] [place] [address], [address], 02/05/2019 09:17:47 02/06/20 19 02/05/2019 urina lysis , dipst ick, auto Unknown Analyte Negati ve Not Available [facility] [place] [address], [address], 02/05/2019 09:17:47 02/06/20 19 02/05/2019 urina lysis , dipst ick, auto Unknown Analyte Negati ve Not Available [facility] [place] [address], [address], 02/05/2019 09:17:47 02/04/20 19 12/03/2018 CT, abdom en + pelvi s, w/wo contr ast No observ ation record ed. [email or web address] Not Available 2018 18:13:50 Result Notes None recorded. Problems Name Problem SNOMED Code Status Onset Date Resolution Date Notes Provider Name and Address Organization Details Recorded Time Pain in pelvis 79979291 Active 2018 David Noguera MD [address] [place] [address], [address], [facility] 9 08:28:19 Left lower quadrant pain 215878735 Active 2018 David Noguera MD [address] [place] [address], [address], [facility] 9 08:28:40 Problem Notes None recorded. Procedures Surgical History Date Name Laterality Status Provider Name and Address Organization Details Recorded Time hysterectomy completed Wendy Lopez [facility] 02/05/2019 08:23:53 Imaging Results Imaging [...] Updated DateTime 9 157.48 cm 27.1 kg/m2 09534.6 7 g 92 /min 140 mm[Hg] 87 mm[Hg] Wendy Lopez [facility] 9 08:15:46 Social History Question Answer Notes LastModified by Organizat ion Details LastModified Time Tobacco Smoking Status Never Smoker Wendy Lopez [facility] 02/05/2019 08:21:53 Do You Have An [...] available 2018 08:21:44 Medical History Condition Response High Cholesterol (Hyperlipidemia) Y Diabetes Y Gynecological HistoryNo gynecological history recorded. Obstetrics History GPAL:G 0 P 0 0 0 0 Past Encounters Encounter ID Performer Location Encounter Start Date Encounter Closed Date Diagnosis/Indication Diagnosis SNOMED-CT Code Diagnosis ICD10 Code Diagnosis Note [id number] Rich Noguera MD [facility] [address] [facility] [address] [place] [address] 02/05/2019 07:56:41 02/05/2019 09:09:23 Pain in pelvis 15015119 R10.2 Patient has vague characterf elt in [...] for her geographic ally to travel from [facility]. She will fu as needed with local urologist Left lower quadrant pain 846674463 R10.32 Needs GI assessment and orthopedic evaluation Health Concerns Section Related Observation LastModified by Organization Detai ls LastModified Time None Recorded Concern Status LastModified by Organization Details LastModified Time None Recorded Advance Directives Directive N: healthcare proxy Hossein Hancock (son) Payers Encounter Date Sequence Insurance Name Policy Number Policy Garduno Covered Member ID Garduno Member ID Guarantor Name 02/05/2019 1 [place]ICARE [place]: NATIONAL [employer] Mckenna Hancock [id number] Mckenna Hancock 02/05/2019 2 [facility] [id number] Mckenna Hancock [id number] Mckenna Hancock Notes Date Note Type Note [...] Tamsulosin was causing dizziness. David Noguera MD [address] [place] [address], [address], [facility]. 02/05/2019 09:27:31 OBGyn Episode No OBEpisode recorded.
--- OUTSIDE RECORDS SUMMARY | 2024-06-24 08:40 | XMS_ITS | Encounter Summary ---
Author Organization [facility] Address [address] [facility] [address] [place] [address] Phone Care Team Providers Care Banquet Lead Name Role Phone Ailyn Garzon MD Primary Care Provider [phone] Encounter Details Date Type Department Care Team (Late Contact Info) Description 11/13/2021 Documentation Only [facility] [address] [facility] [address] [place] [address] Tamara Hendrickson Social History Tobacco [...] [facility] [address] [phone] Chris Gonzáles MD [address] [facility] [address] [place] [address] documented as of this encounter Visit Diagnoses Not on filedocumented in this encounter Care Teams Banquet Lead Relationship Specialty Start Date End Date Ailyn Garzon MD [facility] [address] [place] PCP - General Internal Medicine 09/10/21 documented as of this encounter
[2024-06-24 08:46] LABS: Glucose, Whole Blood 182 mg/dL (60-115)
== END 2024-06-24 09:15 | disposition home or self-care (01) ==
LOC: HO.ENCR 08:22
PROVIDERS: PCP Internal Medicine; Visit Provider Internal Medicine Endocrinology, Diabetes & Metabolism
DX: M81.0 Age-related osteoporosis without current pathological fracture (principal); E11.65 Type 2 diabetes mellitus with hyperglycemia; Z79.4 Long term (current) use of insulin; E04.1 Nontoxic single thyroid nodule
CPT/HCPCS: 99214; G2211

== ENCOUNTER → 2024-06-24 08:21 | Outpatient (BNVA) | payer MEDICARE, OTHER, SELFPAY | PROVIDERS: PCP Internal Medicine; Visit Provider Internal Medicine Endocrinology, Diabetes & Metabolism | DX: M81.0 Age-related osteoporosis without current pathological fracture (principal); E04.1 Nontoxic single thyroid nodule; E11.65 Type 2 diabetes mellitus with hyperglycemia; Z79.4 Long term (current) use of insulin | CPT/HCPCS: 82947; 83036; 99212 ==

== ENCOUNTER 2024-10-23 07:26 | Outpatient (REF) | payer MEDICARE, OTHER, SELFPAY ==
--- OUTSIDE RECORDS SUMMARY | 2024-10-23 07:29 | XMS_ITS | Encounter Summary ---
Author Organization [facility] Address [address] [facility] [address] [place] [address] Phone Care Team Providers Care Warehouse Distribution Specialist Name Role Phone Ashely Hayes MD Primary Care Provider Self-Referred, Patient Unavailable Unavailab Wolf Alvarado MD Unavailable [phone] Pcp, Not Required Primary Care Provider Unavaila ble Encounter Details Date Type Department Care Team (Late st Contact Info) Description 12/23/2016 Procedure Pass [facility] Endoscopy Admitting Dept Virtual Department [address] [place] [address] Social History Tobacco Use Types Packs/Day Years Used Date Smoking Tobacco: Never Smokeless Tobacco: Never Alcohol Use Standard Drinks/Week Comments No 0 (1 standard drink = 0.6 oz pur e alcohol) Comments Unknown Sex and Gender Information Value Date Recorded Sex Assigned at Not on file Legal Sex Female 9:26 AM EDT Gender Identity Not on file Sexual Orientation Not on file documented as of this encounter Plan of Treatment Not on file documented as of this encounter Visit Diagnoses Not on filedocumented in this encounter Care Teams Warehouse Distribution Specialist Relationship Specialty Start Date End Date Ashely Hayes MD [address] [place] [address] PCP - General Pulmonary Disease 12/20/16 07/26/21 Pcp, Not Required [address] [place] [address] PCP - General 07/27/21 Self-Referred, Patient 07/24/21 Wolf Pate MD [address] [place] [phone] [email or web address] Oncology 07/26/21 documented as of this encounter Additional Source Comments The information contained in this document represents components of the legal health record. It is not the complete legal health record.[facility]
--- OUTSIDE RECORDS SUMMARY | 2024-10-23 07:29 | XMS_ITS | Clinical Summary ---
Author Organization [facility] Address [address] [place] [address] Phone Care Team Providers Care Dragsaw Operator Name Role Phone Self-Referred, Patient Unavailable Unavailab Wolf Alvarado MD Unavailable [phone] Pcp, Not Required Primary Care Provider Unavaila ble Allergies No known active allergies Medications metoprolol tartrate (LOPRESSOR) 25 MG tabletIndicatio ns:hypertension Take 25 mg by mouth daily. Indications: hypertension Active aspirin 81 mg chewable tablet Take 81 mg by mouth daily. Active atorvastatin (LIPITOR) 40 MG tablet Take 40 mg by mouth daily. Active calcium carbonate-vitam in D3 1,250 mg (500 mg elemental)-400 units per tablet Take 1 tablet by mouth daily. Active losartan (COZAAR) 50 MG tablet Take 50 mg by mouth daily. Active metFORMIN (GLUCOPHAGE) 1000 MG tablet Take 1,000 mg by mouth 2 (two) times a day with meals. Active amLODIPine (NORVASC) 5 MG tablet Take 5 mg by mouth daily. Active ferrous sulfate 324 mg (65 mg elemental) TbEC Take 324 mg by mouth daily with breakfast. Active glipiZIDE (GLUCOTROL) 10 MG tablet Take 10 mg by mouth 2 (two) times a day before meals. Active insulin glargine (LANTUS) 100 unit/mL injection vial Inject 40 Units under the skin daily with breakfast. Active doxepin (SINEQUAN) 10 MG capsule Take 10 mg by mouth nightly. Active Social History Tobacco Use Types Packs/Day Years Used Date Smoking Tobacco: Never Smokeless Tobacco: Never Alcohol Use Standard Drinks/Week Comments No 0 (1 standard drink = 0.6 oz pur e alcohol) Education Answer Date Recorded Are you interested in more education? Not on ariel e 06/14/2022 Are you concerned about learning? Not on file 06/14/2022 No 06/14/2022 No 06/14/2022 Digital Access Answer Date Recorded No 07/13/2022 No 07/13/2022 No 07/13/2022 Reliable internet access at home? Not on file 07/13/2022 Device with a working camera? Not on file Comments Unknown Sex and Gender Information Value Date Recorded Sex Assigned at Not on file Legal Sex Female 9:26 AM EDT Gender Identity Not on file Sexual Orientation Not on file Last Filed Vital Signs Vital Sign Reading Time Taken Comments Blood Pressure 161/77 07/27/2021 12:56 PM EDT Pulse 87 07/27/2021 12:56 PM EDT Temperature 36.6 C (97.9 F) 07/27/2021 12:56 PM EDT Respiratory Rate 18 07/27/2021 12:56 PM EDT Oxygen Saturation 99% 07/27/2021 12:56 PM EDT Inhaled Oxygen Concentration - - Weight 65.5 kg (144 lb 6.4 oz) 07/27/2021 12:56 PM EDT Height 156.5 cm (5' 1.61 ) 07/27/2021 12:56 PM E DT Body Mass Index 26.74 07/27/2021 12:56 PM EDT Plan of Treatment Health Maintenance Due Date Last Done Comments Adult Td,Tdap Booster 1950 CREATININE LEVEL 1950 LIPID PANEL 1950 POTASSIUM LEVEL 1950 DEPRESSION SCREENING 1962 HEPATITIS C SCREENING 1968 MAMMOGRAM 1990 COLOGUARD 05/24/1995 FIT TEST 05/24/1995 FOBT 05/24/1995 SIGMOIDOSCOPY 05/24/1995 VIRTUAL COLONOSCOPY 05/24/1995 PNEUMOCOCCAL VACCINES (50+ years) (2 of 2 - PCV) 04/28/2009 04/28/2008 ZOSTER VACCINES (2 of 3) 04/28/2012 03/03/2012 OSTEOPOROSIS SCREENING INITI AL (ONE-TIME) 05/24/2015 INFLUENZA VACCINE (#1) 2024 3, 02/03/2007 COVID-19 VACCINE (2 - 2024-2 6 season) 2024 05/09/2020 RSV VACCINE (1 - 1-dose 75+ series) 2025 COLONOSCOPY 12/23/2026 12/23/2016 COLORECTAL CANCER SCREENING 12/23/2026 SMOKING STATUS SCREENING (On ce After 26 Yrs) Completed 12/23/2016 HEPATITIS A VACCINES Aged Out No long er eligible based on patient's age to complete this topic HIB VACCINES Aged Out No longer eligi ble based on patient's age to complete this topic MENINGOCOCCAL VACCINES (ACWY) Aged Out No longer eligible based on patient's age to complete this topic MENINGOCOCCAL VACCINES (B) Aged Out N o longer eligible based on patient's age to complete this topic Medical Devices Not on file Procedures Procedure Name Priority Date/Time Associated Diagnosis Comments ENDOSCOPY, COLON 12/23/2016 9:55 AM EST from Last 3 Months or Most Recently Relevant to Health Maintenance Results * ENDOSCOPY, COLON (12/23/2016 9:55 AM EST) Narrative Transcriptions Blayne Cervantes MD - 12/23/2016 9:55 AM EST Patient Name: Korina Chavescornel Attending MD:: BLAYNE CERVANTES MD Procedure Date: 12/23/2016 9:55 AM Date of : 1950 Age: 66 Admit Type: Outpatient Gender: Female Room: [place] [address] Exam Type: Colonoscopy Indications: Iron deficiency anemia Medications: Monitored Anesthesia Care Procedure: Informed consent was obtained from the patient after discussion of the indications, limitations,alternatives, benefits, and risks of the procedure. Risksspecifically discussed include but are not limited to medication reactions, missed lesions, bleeding, perforation, orthe need for emergent surgery. Throughout the procedure, the patient's blood pressure, pulse, end-tidal CO2, and oxygen saturations were monitored continuously. The Olympus adult variable colonoscope [id number] #3 was introduced through the anus and advanced to the cecum, identified by appendiceal orifice and ileocecal valve.The colonoscopy was performed without difficulty. Thepatient tolerated the procedure fairly well. The quality of the bowel preparation was good. Complications: No immediate complications. Findings: The perianal and digital rectal examinations werenormal. Pertinent negatives include normal sphincter tone. Four semi-sessile polyps were found in the hepatic flexure. The polyps were 6 to 12 mm in size. Thesepolyps were removed with a hot snare. Resection and retrieval were complete. Estimated blood loss: none. A 20 mm polyp was found in the hepatic flexure. Thepolyp was semi-sessile. The polyp was removed with a hotsnare. Resection and retrieval were complete. Estimated blood loss: none. A 11 mm polyp was found in the rectum. The polyp was semi-sessile. The polyp was removed with a hot snare. Resection and retrieval were complete. Estimated blood loss: none. The exam was otherwise without abnormality on directand retroflexion views. Impression: - Four 6 to 12 mm polyps at the hepatic flexure,removed with a hot snare. Resected and retrieved. - One 20 mm polyp at the hepatic flexure, removed witha hot snare. Resected and retrieved. - One 11 mm polyp in the rectum, removed with a hotsnare. Resected and retrieved. - The examination was otherwise normal on direct and retroflexion views. Recommendation: - I will send results of your biopsy to you and your referring physician or provider. If you do not receive notification within 3 weeks, please call our office. - Repeat colonoscopy in 3 years for surveillance of multiple polyps. - To visualize the small bowel, perform video capsule endoscopy at appointment to be scheduled. BLAYNE CERVANTES MD 12/23/2016 10:12:41 AM This report has been signed electronically. Number of Addenda: 0 Note Initiated On: 12/23/2016 9:55 AM Procedure Code(s): --- Professional --- 56241, Colonoscopy, flexible; with removal of tumor(s), polyp(s), or other lesion(s) by snare technique --- Technical --- 89920, Colonoscopy, flexible; with removal of tumor(s), polyp(s), or other lesion(s) by snare technique Diagnosis Code(s): --- Professional --- D12.3, Benign neoplasm of transverse colon (hepatic flexure orsplenic flexure) K62.1, Rectal polyp D50.9, Iron deficiency anemia, unspecified --- Technical --- D12.3, Benign neoplasm of transverse colon (hepatic flexure orsplenic flexure) K62.1, Rectal polyp D50.9, Iron deficiency anemia, unspecified CPT copyright 2016 [employer]. All rights reserved. The codes documented in this report are preliminary and upon personnel generalist manager reviewmay be revised to meet current compliance requirements. [address] [place] [address] us Unknown Unknown GI PROCEDURE ORDERABLES Edite d Result - Final from Last 3 Months or Most Recently Relevant to Health Maintenance Insurance [facility] MEDICARE SUPPLEMENT MEDICARE PART A & B Member Subscriber Plan / Payer (Ef fective 2017-Present) Name:Korina Hancock Relation to Subscriber:Self Name:KORINA HANCOCK Payer ID:Not on file Type:Indemnity Address: [place] [id number] MEDICARE PART A & [place] [address] [place] [address] MEDICARE SUPPLEMENT MEDICARE PART A & B Member Subscriber Plan / Payer (Ef fective 2015-Present) Name:Korina Hancock Member ID:[id number] Relation to Subscriber:Self Name:Korina Hancock Subscriber ID:[id number] Payer ID:[id number] Group ID:Not on file Type:Medicare Address: [employer] [id number] MEDICARE PART A & [place] [address] MEDICARE SUPPLEMENT MEDICARE PART A & B MEDICARE PART A & B Member Subscriber Plan / Payer ( fective 2017-Present) Name:AndieKorina unger Relation to Subscriber:Self Name:KORINA HANCOCK Payer ID:Not on file Type:Indemnity Address: [place] [id number] MEDICARE PART A & B [facility] MEDICARE SUPPLEMENT MEDICARE PART A & B [facility] MEDICARE SUPPLEMENT MEDICARE PART A & B Care Teams Dragsaw Operator Relationship Specialty Start Date End Date Pcp, Not Required [address] [place] [address] PCP - General 07/27/21 Self-Referred, Patient 07/24/21 Wolf Pate MD [address] [place] [phone] [email or web address] 07/26/21 Additional Source Comments The information contained in this document represents components of the legal health record. It is not the complete legal health record.[facility]
--- OUTSIDE RECORDS SUMMARY | 2024-10-23 07:29 | XMS_ITS | Encounter Summary ---
Author Organization [facility] Address [address] [facility] [address] [place] [address] Phone Care Team Providers Care Variety Performer Name Role Phone Ailyn Garzon MD Primary Care Provider [phone] Encounter Details Date Type Department Care Team (Late st Contact Info) Description 11/13/2021 Documentation Only [facility] [address] [facility] [address] [place] [phone] Tamara Hendrickson Social History Tobacco Use Types [...] Care Team (Late st Contact Info) Description 04/06/2025 3:00 PM EST Office Visit [facility] [address] [facility] [place] [phone] Chris Gonzáles MD [address] [facility] [facility] [place] [address] documented as of this encounter Visit Diagnoses Not on filedocumented in this encounter Care Teams Variety Performer Relationship Specialty Start Date End Date Ailyn Garzon MD [facility] [address] [facility] PCP - General Internal Medicine 09/10/21 documented as of this encounter
--- OUTSIDE RECORDS SUMMARY | 2024-10-23 07:29 | XMS_ITS | Clinical Summary ---
Author Organization [facility] Address [address] [address] Phone Care Team Providers Care Interventional Radiology Rn Name Role Phone Ailyn Garzon MD Primary Care Provider [phone] Allergies Active Allergy Reactions Criticality Noted Date [...] Encounters Date Type Department Care Team Description 10/11/2024 3:30 PM EDT Office Visit [facility] [address] [phone] Chris Gonzáles MD Chronic kidney disease, not otherwise specified (Primary Dx); Diabetes mellitus, not otherwise specified (HCC); Hypertension; Hypercalcemia; Monoclonal gammopathy of undetermined significance (MGUS) 08/02/2024 Orders Only [facility] [address] [address] Jw Modi MD Chronic kidney disease, stage 2 (mild); Monoclonal gammopathy of undetermined significance (MGUS); Osteoporosis; Diabetes mellitus, not otherwise specified (HCC); Hypertension; Dyslipidemia; Hypercalcemia from Last 3 Months Immunizations Immunization Administration Dates Next Due DTaP [...] Sign Reading Time Taken Comments Blood Pressure 130/58 10/11/2024 3:26 PM EDT Pulse 95 10/11/2024 3:26 PM EDT Temperature - - Respiratory Rate - - Oxygen Saturation 97% 02/02/2024 9:28 AM EST Inhaled Oxygen Concentration - - Weight 69.9 kg (154 lb) 10/11/2024 3:26 PM EDT Height 157.5 cm (5' 2 ) 02/02/2024 9:28 AM EST Body Mass Index 28.17 02/02/2024 9:28 AM EST Plan of Treatment Upcoming Encounters Date Type Department Care Team (Late st Contact Info) Description 04/06/2025 3:00 PM EST Office Visit [facility] [address] [phone] Chris Gonzáles MD [address] [phone] Health Maintenance Due Date Last [...] A1C 08/22/2023 024, 10/23/2021 Influenza Vaccine (#1) 2024 02/03/2007 Hepatitis B Vaccine Aged Out No longe r eligible based on patient's age to complete this topic Procedures Procedure Name Priority Date/Time Associated Diagnosis Comments PTH, INTACT Routine 10/12/2024 10:31 AM EDT Monoclonal gammopathy of undetermined significance (MGUS) CBC Routine 10/12/2024 10:30 AM EDT CALCIUM Routine 10/12/2024 10:29 AM EDT Hypercalcemia KAPPA/LAMBDA FREE LT CHAINS W/RATIO Routine 10/12/2024 10:29 AM EDT Monoclonal gammopathy of undetermined significance (MGUS) APARNA, URINE Routine 10/12/2024 10:29 AM EDT Monoclonal gammopathy of undetermined significance (MGUS) PROTEIN / CREATININE RATIO, URINE Routine 10/06/2024 11:27 AM EDT Chronic kidney disease, stage 2 (mild) Monoclonal gammopathy of undetermined significance (MGUS) Osteoporosis Diabetes mellitus, not otherwise specified (HCC) Hypertension Dyslipidemia Hypercalcemia CBC AND DIFFERENTIAL Routine 10/06/2024 11:27 AM EDT Chronic kidney disease, stage 2 (mild) Monoclonal gammopathy of undetermined significance (MGUS) Osteoporosis Diabetes mellitus, not otherwise specified (HCC) Hypertension Dyslipidemia Hypercalcemia VITAMIN D 25 HYDROXY Routine 10/06/2024 11:27 AM EDT Chronic kidney disease, stage 2 (mild) Monoclonal gammopathy of undetermined significance (MGUS) Osteoporosis Diabetes mellitus, not otherwise specified (HCC) Hypertension Dyslipidemia Hypercalcemia PTH, INTACT Routine 10/06/2024 11:27 AM EDT Chronic kidney disease, stage 2 (mild) Monoclonal gammopathy of undetermined significance (MGUS) Osteoporosis Diabetes mellitus, not otherwise specified (HCC) Hypertension Dyslipidemia Hypercalcemia PHOSPHATE ( PHOSPHORUS) Routine 10/06/2024 11:27 AM EDT Chronic kidney disease, stage 2 (mild) Monoclonal gammopathy of undetermined significance (MGUS) Osteoporosis Diabetes mellitus, not otherwise specified (HCC) Hypertension Dyslipidemia Hypercalcemia MAGNESIUM Routine 10/06/2024 11:27 AM EDT Chronic kidney disease, stage 2 (mild) Monoclonal gammopathy of undetermined significance (MGUS) Osteoporosis Diabetes mellitus, not otherwise specified (HCC) Hypertension Dyslipidemia Hypercalcemia URIC ACID Routine 10/06/2024 11:27 AM EDT Chronic kidney disease, stage 2 (mild) Monoclonal gammopathy of undetermined significance (MGUS) Osteoporosis Diabetes mellitus, not otherwise specified (HCC) Hypertension Dyslipidemia Hypercalcemia COMPREHENSIVE METABOLIC PANEL Routine 10/06/2024 11:27 AM EDT Chronic kidney disease, stage 2 (mild) Monoclonal gammopathy of undetermined significance (MGUS) Osteoporosis Diabetes mellitus, not otherwise specified (HCC) Hypertension Dyslipidemia Hypercalcemia HEMOGLOBIN A1C Routine 2023 11:26 AM EDT Chronic kidney disease, not otherwise specified from Last 3 Months or Most Recently Relevant to Health Maintenance Results * PTH, intact (10/12/2024 10:31 AM EDT) Only the most recent of2 resultswithin the time period is included. Pathologist [facility] [place] PTH 23 15 - 65 pg/mL [facility] Blood Venous blood / Unknown 10/12/2024 10:31 AM EDT 10/12/2024 Chris Gonzáles MD LAB BLOOD ORDERABLES Final Resul t [facility] [address] [place] [address] * (ABNORMAL) CBC (10/12/2024 10:30 AM EDT) Pathologist [facility] [place] WBC 7.2 3.4 - 10.8 x10E3/uL [facility] RBC 5.55(H) 3.77 - 5.28 x10E6/uL [facility] Hemoglobin 12.5 11.1 - 15.9 g/dL [facility] Hematocrit 41.5 34.0 - 46.6 % [facility] MCV 75(L) 79 - 97 fL [facility] MCH 22.5(L) 26.6 - 33.0 pg [facility] MCHC 30.1(L) 31.5 - 35.7 g/dL [facility] RDW 16.8(H) 11.7 - 15.4 % [facility] Platelets 373 150 - 450 x10E3/uL [facility] 10/12/2024 10:3 0 AM EDT 10/12/2024 us Chris Gonzáles MD LAB BLOOD ORDERABLES Final Resul t [facility] [address] [place] [address] * (ABNORMAL) Urine Immunofixation Electrophoresis (10/12/2024 10:29 AM EDT) Pathologist [facility] APARNA Interpretation: U Comment(A) [facility] Comment: A faint band was noted in lambda; suggestive of free monoclonal protein. Recommend retesting in 4-6 months. Urine 10/12/2024 10:2 9 AM EDT 10/12/2024 us Chris Gonzáles MD LAB URINE ORDERABLES [facility]ul [facility] [address] [place] [address] * (ABNORMAL) Meridian/Lambda free LT chains w/ratio, Serum (10/12/2024 10:29 AM EDT) Pathologist [facility] [place] Free Meridian Lt Chains, S 31.2(H) 3.3 - 19.4 mg/L [facility] Free Lambda Lt Chains, S 29.0(H) 5.7 - 26.3 mg/L [facility] Free Meridian/Lambda Ratio 1.08 0.26 - 1.65 [facility] Blood Venous blood / Unknown 10/12/2024 10:29 AM EDT 10/12/2024 us Chris Gonzáles MD LAB BLOOD ORDERABLES Final Resul t Performing Organization Address City/[facility] Co de Phone Number [facility] [address] [place] [address] * (ABNORMAL) Calcium (10/12/2024 10:29 AM EDT) Calcium 10.7(H) 8.7 - 10.3 mg/dL [facility] Comment:Verified by repeat analysis Blood Venous blood / Unknown 10/12/2024 10:29 AM EDT 10/12/2024 us Chris Gonzáles MD LAB BLOOD ORDERABLES Final Resul t Performing Organization Address [facility] de Phone Number [facility] [address] [place] [address] * (ABNORMAL) Protein, Total, Random Urine w/Creatinine (Protein/Creat Ratio) (10/06/2024 11:27 AM EDT) Creatinine, Ur 116.9 Not Estab. mg/dL [facility] Protein, Ur 30.7 Not Estab. mg/dL [facility] Urine Protein/Creati nine Ratio 263(H) 0 - 200 mg/g creat [facility] Urine specimen (specimen) Urine specimen obtained by clean catch procedure / Unknown 10/06/2024 11:27 AM EDT 10/06/2024 us Jw Modi MD LAB URINE ORDERABLES Final Re sult Performing Organization Address [facility] Co de Phone Number [facility] [address] [place] [address] * Vitamin D 25 Hydroxy (10/06/2024 11:27 AM EDT) Vitamin D, 25-OH, Total 36.6 30.0 - 100.0 ng/mL [facility] Comment: Vitamin D deficiency has been defined by the [place] of [employer] and an Endocrine Society practice guideline as a level of serum 25-OH vitamin D less than 20 ng/mL (1,2). The Endocrine Society went on to further define vitamin D insufficiency as a level between 21 and 29 ng/mL (2). 1. IOM ([place] of [employer]). 2010. Dietary reference intakes for calcium and D. [place]: The National Academies Press. 2. Milly MF, Bong WRAY, Mat BONILLA, et al. Evaluation, treatment, and prevention of vitamin D deficiency: an Endocrine Society clinical practice guideline. JCEM. 2010; 96(7):1911-30. Blood specimen (specimen) Venous blood / Unknown 10/06/2024 11:27 AM EDT 10/06/2024 us Jw Modi MD LAB BLOOD ORDERABLES Final Re sult [facility] [address] [place] [address] * (ABNORMAL) CBC and Differential (10/06/2024 11:27 AM EDT) WBC 7.0 3.4 - 10.8 x10E3/uL [facility] RBC 6.10(H) 3.77 - 5.28 x10E6/uL [facility] Hemoglobin 13.4 11.1 - 15.9 g/dL [facility] Hematocrit 46.0 34.0 - 46.6 % [facility] MCV 75(L) 79 - 97 fL [facility] MCH 22.0(L) 26.6 - 33.0 pg [facility] MCHC 29.1(L) 31.5 - 35.7 g/dL [facility] RDW 15.8(H) 11.7 - 15.4 % [facility] Platelets 351 150 - 450 x10E3/uL [facility] Neutrophils Relative 56 Not Estab. % [facility] Lymphocytes Relative 33 Not Estab. % [facility] Monocytes 7 Not Estab. % [facility] Eosinophils Relative 3 Not Estab. % [facility] Basophils Relative 1 Not Estab. % [facility] Neutrophils Absolute 3.9 1.4 - 7.0 x10E3/uL [facility] Lymphocytes Absolute 2.3 0.7 - 3.1 x10E3/uL [facility] Monocytes Absolute 0.5 0.1 - 0.9 x10E3/uL [facility] Eosinophils Absolute 0.2 0.0 - 0.4 x10E3/uL [facility] Basophils Absolute 0.0 0.0 - 0.2 x10E3/uL [facility] Immature Granulocytes 0 Not Estab. % [facility] Immature Grans (Absolute) 0.0 0.0 - 0.1 x10E3/uL [facility] Blood specimen (specimen) Venous blood / Unknown 10/06/2024 11:27 AM EDT 10/06/2024 us Jw Modi MD LAB BLOOD ORDERABLES Final Re sult [facility] [address] [place] [address] * Uric Acid (10/06/2024 11:27 AM EDT) Uric Acid 5.0 3.1 - 7.9 mg/dL [facility] Comment:Therapeutic target f or gout patients: <6.0 Blood specimen (specimen) Venous blood / Unknown 10/06/2024 11:27 AM EDT 10/06/2024 us Jw Modi MD LAB BLOOD ORDERABLES Final Re sult Performing Organization Address City/[facility]/ZIP Co de Phone Number [facility] [address] [place] [address] * Phosphorus (10/06/2024 11:27 AM EDT) Phosphorus 3.3 3.0 - 4.3 mg/dL [facility] Blood specimen (specimen) Venous blood / Unknown 10/06/2024 11:27 AM EDT 10/06/2024 Jw Modi MD LAB BLOOD ORDERABLES Final Re sult Performing Organization Address [facility] de Phone Number [facility] [address] [place] [address] * Magnesium (10/06/2024 11:27 AM EDT) Magnesium 1.8 1.6 - 2.3 mg/dL [facility] Blood specimen (specimen) Venous blood / Unknown 10/06/2024 11:27 AM EDT 10/06/2024 us Jw Modi MD LAB BLOOD ORDERABLES Final Re sult Performing Organization Address [facility] Co de Phone Number [facility] [address] [place] [address] * (ABNORMAL) Comprehensive Metabolic Panel (10/06/2024 11:27 AM EDT) Glucose 169(H) 70 - 99 mg/dL [facility] BUN 22 8 - 27 mg/dL [facility] Creatinine 1.12(H) 0.57 - 1.00 mg/dL [facility] eGFR CKD-EPI CR 2020 52(L) >59 mL/min/1.7 3 [facility] BUN/Creatinine Ratio 20 12 - 28 [facility] Sodium 138 134 - 144 mmol/L [facility] Potassium 5.1 3.5 - 5.2 mmol/L [facility] Chloride 101 96 - 106 mmol/L [facility] Bicarbonate (CO2) 17(L) 20 - 29 mmol/L [facility] Calcium 10.7(H) 8.7 - 10.3 mg/dL [facility] Total Protein 7.8 6.0 - 8.5 g/dL [facility] Albumin 4.7 3.8 - 4.8 g/dL [facility] Globulin 3.1 1.5 - 4.5 g/dL [facility] Total Bilirubin 0.3 0.0 - 1.2 mg/dL [facility] Alkaline Phosphatase 82 44 - 121 IU/L [facility] AST (SGOT) 20 0 - 40 IU/L [facility] ALT (SGPT) 16 0 - 32 IU/L [facility] Blood specimen (specimen) Venous blood / Unknown 10/06/2024 11:27 AM EDT 10/06/2024 us Jw Modi MD LAB BLOOD ORDERABLES Final Re sult [facility] [address] [place] [address] * (ABNORMAL) Hemoglobin A1c (2023 11:26 AM EDT) Hemoglobin A1C 7.2(H) 4.8 - 5.6 % [facility] Comment: Prediabetes: 5.7 - 6.4 Diabetes: >6.4 Glycemic control for adults with diabetes: <7.0 Blood specimen (specimen) Venous blood / Unknown 2023 11:26 AM EDT 2023 Narrative [facility] - 05/24/2023 3:06 AM EDT Performed at: - [facility] [address] [id number] [employer]: Kortney Alves MD, Phone: [phone] Alexandra Lara MD LAB BLOOD ORDERABLES Final Result [facility] from Last 3 Months or Most Recently Relevant to Health Maintenance Insurance Medicare [facility] Medicare [facility] Care Teams Interventional Radiology Rn Relationship Specialty Start Date End Date Ailyn Garzon MD [address] [place], [place] PCP - General Internal Medicine 09/10/21
[2024-10-23 08:44] LABS: Parathyroid Hormone Intact 73.5 pg/mL (8.7-77.1)
[2024-10-23 08:50] LABS: Hemoglobin A1C 236.9194 umol/L; Total Hemoglobin (HGBA1C) 3351.5871 umol/L
[2024-10-23 08:52] LABS: Alanine Aminotransferase 29 U/L (0-31); Albumin Level 4.7 g/dL (3.5-5.0); Alkaline Phosphatase 84 U/L (39-117); Anion Gap 15 (12-20); Aspartate Amino Transferase 30 U/L (5-31); Blood Urea Nitrogen 31 mg/dL (9-16); Calcium 10.3 mg/dL (8.4-10.2); Carbon Dioxide 24 mmol/L (22-29); Chloride 105 mmol/L (96-108); Cholesterol 196 mg/dL (<200); Estimated Glomerular Filt Rate 36; HDL Cholesterol 60 mg/dL (>40); Potassium 4.8 mmol/L (3.3-5.1); Sodium 139 mmol/L (135-145); Total Protein 8.3 g/dL (6.5-8.0); Triglycerides 142 mg/dL (<150)
[2024-10-23 11:32] LABS: Microalbum/Creatinine Ratio Ur 146.0 ug/mg cr (<30)
== END 2024-10-23 07:27 | disposition home or self-care (01) ==
LOC: HO.LAB 07:26
PROVIDERS: Absent Provider Internal Medicine; PCP Internal Medicine; Visit Provider Internal Medicine Endocrinology, Diabetes & Metabolism
DX: M81.0 Age-related osteoporosis without current pathological fracture (principal); E11.65 Type 2 diabetes mellitus with hyperglycemia; E78.00 Pure hypercholesterolemia, unspecified; Z79.4 Long term (current) use of insulin
CPT/HCPCS: 36415; 80053; 80061; 82043; 82570; 83036; 83970

== ENCOUNTER 2024-10-28 08:58 | Outpatient (AMB) | payer MEDICARE, OTHER, SELFPAY ==
--- NOTE | 2024-10-28 09:10 | MHC.OFFVIS ---
Vital Signs 10/28/24 09:18 Height 5 ft 3.31 in Weight 155 lb 13.869 oz BMI 27.3 BP 104/64 Blood Pressure Location Rt brachial Position Sitting Pulse 81 Pulse Source Pulse Oximeter Pulse Oximetry (%) 97 Oxygen Delivery Method Room Air Intake Visit Reasons: Osteoporosis, MNG, T2DM Intake Note: Patient present today to follow up on Diabetes Mellitus and Osteoporosis. Patient receives Dexcom supplies through: [employer] Last Diabetic Eye exam: approx 1 month ago Last Podiatry Visit: Does not see a Engineering Psychologist Random Glucose: 157 mg/dl HgA1C: 8.6% 10/23/2024 Clip Baker Required: No Accompanied by: Self / Same As Patient Allergies atorvastatin Adverse Reaction (Intermediate, Verified 10/28/24 09:19) myalgia dulaglutide (From Trulicity) Adverse Reaction (Intermediate, Verified 10/28/24 09:19) nausea glipizide Adverse Reaction (Intermediate, Verified 10/28/24 09:19) patient HPI Comments Details: 74 YO F with PMHx T2DM who is seen in F/U for Osteoporosis , hyperparathyroidism and type 2 diabetes. Of note, the patient is somewhat of a poor historian. 1) T2DM: Initially diagnosed with T2DM in 1999. Was initially started on treatment with Metformin. She started using Insulin in 2016. Current regimen Metformin 1000 mg PO BID and Tresiba 30 units daily and Novolog 10 units TID not compliant . mounjaro 2..5 mg Qwkly not taking She has failed treatment with Trulicity as well as Glipizide. She was unable to tolerate the Trulicity due to GI distress. She was intolerant to Jardiance due to recurrent vaginal yeast infection.. She is not taking the 30 units of Tresiba consistently and sometimes takes less Uses Dexcom sensor. Download shows she is using the sensor 95% of the time. Average glucose is 191 with G mi of 7.9% and standard deviation 73 . 54% range with 46% hyperglycemia and no hypoglycemia . Pattern shows post-breakfast excursion with maintain hyperglycemia throughout the afternoon Reports no low sugars when she does not eat. Is aware of the rule of 15's to treat. No low sugars since her last visit. Treats lows with juice. Checks sugar after to ensure it is rising. Family history of T2DM in her Mother. Has eyes checked yearly, last eye exam , has retinopathy. Has neuropathy. Is on Gabapentin. Has nephropathy, on Losartan 100 mg PO daily. UAC 27.4 01/06/2021. Has HLD, on Atorvastatin 40 mg PO daily. Now on 80 mg atorvastatin . Admits to only taking 40 mg at present Denies CAD. Had diabetes education. 2) Osteoporosis: She has a longstanding history of hypercalcemia. She also has a long standing history of Osteoporosis of her spine and hip. She appears to have failed treatment with Fosamax. BMD has acutely worsened over the past 2 years. After our initial visit we completed a full workup for secondary causes of Osteoporosis. SPEP revealed possible elevated M protein. She was referred to Heme-Onc and had additional testing. This was thought to represent MGUS. She continues to follow with Heme-Onc. First diagnosed in her late 50's. Received treatment in the past with Fosamax for 1 years 5 yrs a go , but stopped this around the age of 65. Tolerated treatment well without complication. No history of pathologic fracture or ONJ. Has 0 servings of dietary calcium. Does not take Calcium. Takes 5000 IU of Vitamin D daily. Fracture history: Did have a fracture of her leg. This was a fragility fracture. She had a hysterectomy in her mid 40's and never had symptoms of menopause after. History of Kidney stones: Denies Family history of Osteoporosis in her Mother. UTD on dental cleanings and sees dentist every 6 months. No planned upcoming dental work or extractions. We discussed Prolia and she was initially agreeable to this, but then changed her mind and refused treatment. Also has a NTMNG. She underwent FNA biopsy 08/15/2022 of her left mid pole 1.7 cm thyroid nodule with benign (bethesda category II) cytology. DXA: 07/30/2022 FINDINGS: AP SPINE L1-L2 (excluding L3 and L4): The data of L1-L4 has been changed to exclude the L3 and L4 vertebral bodies, because hardware at these levels may cause overestimation of lumbar spine density. Current: BMD 0.771 g/cm2, Z-score -1.5, T-score -3.3, osteoporosis, 14.6% increase from previous, 3.1% decrease from baseline (<5% change is not significant). Prior: BMD 0.673 g/cm2. Baseline: BMD 0.796 g/cm2. LEFT FEMUR, NECK: Current: BMD 0.652 g/cm2, Z-score -1.0, T-score -2.8, osteoporosis. Prior: BMD 0.641 g/cm2. Baseline: BMD 0.716 g/cm2. LEFT FEMUR, TOTAL: Current: BMD 0.641 g/cm2, Z-score -1.3, T-score -2.9, osteoporosis, 1.6% increase from previous, 11.8% decrease from baseline (<5% change is not significant). Prior: BMD 0.631 g/cm2. Baseline: BMD 0.727 g/cm2. LEFT FOREARM RADIUS 33%: BMD 0.517 g/cm2, Z-score -2.1, T-score -4.1, osteoporosis. Prior:? Not previously measured. Labs: Laboratory Tests 03/27/22 08:20 Creatinine 1.05 Estimated GFR 52 The patient is a 74-year-old female presenting with concerns related to osteoporosis and hypercalcemia management. She is currently under review for persistent hypercalcemia, suspected to be PTH mediated. Her calcium levels, tested last in October, were noted as a little high. Consequently, she was advised to undergo tests at [facility] to reassess calcium and parathyroid hormone levels. The potential presence of a non-neoplastic parathyroid gland growth might be affecting her bone density. Labs at [facility] showed mildly elevated calcium with inappropriately normal to high normal PTH levels. She then saw Dr. Castaneda for possible surgical consultation who felt that this may not represent primary hyperparathyroidism and ordered a different assay of PTH which is pending and will be available tomorrow She was previously advised to start Prolia for osteoporosis, but the initiation was postponed due to fluctuating calcium results. An oncological review led to her diagnosis of Monoclonal Gammopathy of Undetermined Significance (MGUS), which is currently under surveillance for progression. Her endocrinological history is further nuanced by the diagnosis of a multinodular goiter, previously evaluated with ultrasounds and biopsied twice, without emergent findings. Continuous monitoring has been planned to adjust for her complex profile incorporating endocrine dysfunctions. [facility] Medical History (Updated 10/24/24 @ 11:32 by Ailyn Garzon MD) Abnormal SPEP Vaginitis Diabetes mellitus Breast cancer screening Dysuria SOB (shortness of breath) on exertion Guaiac positive stools Cough CKD (chronic kidney disease) Vitamin D deficiency Thyroid nodule H. pylori duodenitis Esophageal hernia Tubular adenoma of colon Common bile duct dilatation GERD (gastroesophageal reflux disease) Hypercholesterolemia Osteoporosis Hypertension Type 2 diabetes mellitus with hyperglycemia Insomnia Surgical History Hx of cataract surgery History of back surgery S/P epidural steroid injection Status post lumbar spine surgery for decompression of spinal cord H/O: hysterectomy History of partial hysterectomy Family History Father No problems noted. Mother Diabetes Social History Household Members: None Housing: House Are you a primary direct care supervisor to a significant other at home: No Alcohol intake: never Patient Tobacco Use Status: Never used Tobacco Tobacco use type: Cigarette e-Cigarette/Vaping Use: Never Used Second Hand Smoke Exposure: No service: No Current occupational status: retired Cognitive needs: No Hearing needs: No Vision needs: Yes (Glasses) Physical Exam Vital Signs: Last Vital Signs Pulse 81 10/28/24 09:18 BP 104/64 10/28/24 09:18 Pulse Ox 97 10/28/24 09:18 Oxygen Delivery Method Room Air 10/28/24 09:18 BMI result Body Mass Index 27.3 Absence of Cushingoid features. Absence of acromegalic features. Neck exam reveals nl size thyroid about 15 gms. No thyroid nodules palpable. No carotid bruits present. Lungs CTA. Heart S1 S2, Reg R/R. No M/R/ G. Skin exam reveals absence of vitiligo or acanthosis nigricans. Abdominal exam reveals Soft NT/ND with NA BS. No organomegaly present. Neck Other: . Extrem Other: Visual exam of foot performed. No ulcerations or open lesions. No onchomycosis, no callouses.Pulses 2 + distally Sensation intact to monofilament exam. Vibratory sensation sensed is intact with 128 Hz tuning fork Results Reviewed Results Reviewed: Laboratory Last Values Glucose (Clinic) 157 mg/dL (60-115) H 10/28/24 09:24 Assessment & Plan Assessment & Plan (1) Osteoporosis: Code(s): M81.0 - Age-related osteoporosis without current pathological fracture Category: Medical Plan: Secondary workup was negative except for MGUS. Patient is currently on calcium and vitamin-D with high risk for fracture. Repeat calcium and PTH is consistent with the presence of PTH mediated hypercalcemia. She saw Dr. Castaneda ordered a repeat PTH and calcium which is pending We will await PTH and calcium level tomorrow and pending above could either start Prolia will refer back to Dr. Castaneda if consistent with primary hyperparathyroidism 2. Osteoporosis Postpone Prolia pending verification of calcium levels. Evaluate stabilization before proceeding with therapy to mitigate fracture risk. 3. Monoclonal Gammopathy of Undetermined Significance (MGUS) Continue surveillance under current oncology care. No immediate action required unless otherwise indicated by lab results T (2) Type 2 diabetes mellitus with hyperglycemia: Comment: Dr. Riggins Code(s): E11.65 - Type 2 diabetes mellitus with hyperglycemia Category: Medical Qualifiers: Diabetes mellitus long term care phlebotomist insulin use: with snf use Qualified Code(s): E11.65 - Type 2 diabetes mellitus with hyperglycemia; Z79.4 - penitentiary (current) use of insulin Plan: This 72-year-old white female with history of type 2 diabetes being treated with metformin , Mounjaro and basal-bolus insulin with improving adequate glycemic control and known microvascular complications namely CKD and neuropathy. Plan is to discontinue the metformin in light of the decrease in GFR. We will start Mounjaro 2.5 mg Q weekly as patient did not start previously. Once again went over side effects of Mounjaro including but not limited to nausea, vomiting and rare risk of pancreatitis. Patient was asked to report any hypoglycemia for adjustment of the insulin regimen. She was also told to take the NovoLog prior to breakfast if she continues to see excursions in blood sugar after starting the Mounjaro post breakfast. She also we will call to make the appointment with Podiatry with Dr. Papa schreiber in [place]. Lastly she was asked to contact the distribution designer Dr. vázquez regarding the declining GFR (3) Thyroid nodule: Code(s): E04.1 - Nontoxic single thyroid nodule Category: Medical Plan: Status post FNA of right midpole nodule with benign cytology. Recent US showed R lower pole nodule as well I have patient follow up with Dr. Quesada an expert in thyroid ultrasound practice Continue surveillance through ultrasound evaluations and consider further assessments of FNA if indicated by physical findings and repeat ulcer. Medications: Changed From tirzepatide (Mounjaro) for 4 weeks 2.5 mg (0.5 mL) subcut QWEEK 2 mL 4RF To tirzepatide (Mounjaro) for 4 weeks 2.5 mg (0.5 mL) subcut QWEEK 6.5 mL 4RF 3 months Refilled tirzepatide (Mounjaro) for 4 weeks 2.5 mg (0.5 mL) subcut QWEEK 2 mL 4RF Discontinued metformin Discontinued Reason: Doctor's Order 1,000 mg PO BID 90 days 180 tabs 1RF E11.65 - Type 2 diabetes mellitus with hyperglycemia, Z79.4 - superintendent terminal (current) use of insulin Coding Level of Care Code Est Pt Level 4 (34036) Complex EM visit Add On G2211 Diagnoses Osteoporosis M81.0 Type 2 diabetes mellitus with hyperglycemia, with long-term current use of insulin E11.65; Z79.4 Diabetes mellitus long term care phlebotomist insulin use: with snf use Thyroid nodule E04.1
[2024-10-28 09:18] VITALS: BP 104/64; PULSE 81; O2SAT 97; BMI 27.3
[2024-10-28 09:29] LABS: Glucose, Whole Blood 157 mg/dL (60-115)
--- OUTSIDE RECORDS SUMMARY | 2024-10-28 10:09 | XMS_ITS | Encounter Summary ---
Author Organization [facility] Address [address] [place] [address] Phone Care Team Providers Care Material Handling Warehouse Supervisor Name Role Phone Ashely Hayes MD Primary Care Provider Self-Referred, Patient Unavailable Unavailab Wolf Alvarado MD Unavailable [phone] Pcp, Not Required Primary Care Provider Unavaila ble Encounter Details Date Type Department Care Team (Late st Contact Info) Description 12/23/2016 Procedure Pass [facility] Endoscopy Admitting Dept Virtual Department [address] [place] [address] Social History Tobacco Use Types Packs/Day Years [...] on filedocumented in this encounter Care Teams Material Handling Warehouse Supervisor Relationship Specialty Start Date End Date Ashely Hayes MD [address] [place] [address] PCP - General Pulmonary Disease 12/20/16 07/26/21 Pcp, Not Required [address] [place] [id number] PCP - General 07/27/21 Self-Referred, Patient 07/24/21 Wolf Pate MD [address] [place] [phone] [email or web address] 07/26/21 documented as of this encounter Additional Source Comments The information contained in this document represents components of the legal health record. It is not the complete legal health record.[facility]
--- OUTSIDE RECORDS SUMMARY | 2024-10-28 10:09 | XMS_ITS | Clinical Summary ---
Author Organization [facility] Address [address] [place] [address] Phone Care Team Providers Care Bilingual Sales Representative Name Role Phone Self-Referred, Patient Unavailable Unavailab Wofl Alvarado MD Unavailable Pcp, Not Required Primary Care Provider Unavaila [...] 66 Admit Type: Outpatient Gender: Female Room: [place] [address] Exam Type: Colonoscopy Indications: Iron deficiency anemia [...] monitored continuously. The Olympus adult variable colonoscope [id number] #3 was introduced through the anus and [...] 9:55 AM Procedure Code(s): --- Professional --- 45545, Colonoscopy, flexible; with removal of tumor(s), polyp(s), or other lesion(s) by snare technique --- Technical --- 41062, Colonoscopy, flexible; with removal of tumor(s), polyp(s), or other lesion(s) by snare technique Diagnosis Code(s): --- Professional --- D12.3, Benign neoplasm of transverse colon (hepatic flexure orsplenic flexure) K62.1, Rectal polyp D50.9, Iron deficiency anemia, unspecified --- Technical --- D12.3, Benign neoplasm of transverse colon (hepatic flexure orsplenic flexure) K62.1, Rectal polyp D50.9, Iron deficiency anemia, unspecified CPT copyright 2016 [employer]. All rights reserved. The codes documented in this report are preliminary and upon medical biller coder reviewmay be revised to meet current compliance requirements. [address] [place] [address] us Unknown Unknown GI PROCEDURE ORDERABLES Edite d Result - Final from Last 3 Months or Most Recently Relevant to Health Maintenance Insurance [facility] MEDICARE SUPPLEMENT MEDICARE PART A & B Member Subscriber Plan / Payer (Ef fective 2017-Present) Name:Korina Hancock Relation to Subscriber:Self Name:KORINA HANCOCK Payer ID:Not on file Type:Indemnity Address: [place] [id number] MEDICARE PART A & [place] [address] MEDICARE SUPPLEMENT MEDICARE PART A & B Member Subscriber Plan / Payer (Ef fective 2015-Present) Name:Korina Hancock Member ID:[id number] Relation to Subscriber:Self Name:Korina Hancock Subscriber ID:[id number] Payer ID:[id number] Group ID:Not on file Type:Medicare Address: [employer] [address] MEDICARE PART A & [place] [address] MEDICARE SUPPLEMENT MEDICARE PART A & B MEDICARE PART A & B Member Subscriber Plan / Payer ( fective 2017-Present) Name:AndieKorina unger Relation to Subscriber:Self Name:KORINA HANCOCK Payer ID:Not on file Type:Indemnity Address: [place] [id number] MEDICARE PART A & B [facility] MEDICARE SUPPLEMENT MEDICARE PART A & B [facility] MEDICARE SUPPLEMENT MEDICARE PART A & B Care Teams Bilingual Sales Representative Relationship Specialty Start Date End Date Pcp, Not Required [address] [place] [address] PCP - General 07/27/21 Self-Referred, Patient 07/24/21 Wolf Pate MD [address] [place] [phone] [email or web address] 07/26/21 Additional Source Comments The information contained in this document represents components of the legal health record. It is not the complete legal health record.[facility]
--- OUTSIDE RECORDS SUMMARY | 2024-10-28 10:09 | XMS_ITS | Encounter Summary ---
Author Organization [facility] Address [address] [facility] [address] [place] [address] Phone Care Team Providers Care Stamp Presser Name Role Phone Ailyn Garzon MD Primary Care Provider [phone] Encounter Details Date Type Department Care Team (Late st Contact Info) Description 11/13/2021 Documentation Only [facility] [address] [facility] [address] [place] [phone] Tamara Hendrickson Social History Tobacco Use Types [...] [facility] [address] [facility] [facility] [address] [place] [phone] Chris Gonzláes MD [address] [facility] [address] [place] [phone] documented as of this encounter Visit Diagnoses Not on filedocumented in this encounter Care Teams Stamp Presser Relationship Specialty Start Date End Date Ailyn Garzon MD [facility] [address] [facility] PCP - General Internal Medicine 09/10/21 documented as of this encounter
--- OUTSIDE RECORDS SUMMARY | 2024-10-28 10:09 | XMS_ITS | Clinical Summary ---
Author Organization [facility] Address [address] [address] Phone Care Team Providers Care Supervisor Print Line Name Role Phone Ailyn Garzon MD Primary Care Provider [phone] Allergies Active Allergy Reactions Criticality Noted Date [...] Office Visit [facility] [address] [phone] Chris Gonzáles MD Chronic kidney disease, not otherwise specified (Primary Dx); Diabetes mellitus, not otherwise specified (HCC); Hypertension; Hypercalcemia; Monoclonal gammopathy of undetermined significance (MGUS) 08/02/2024 Orders Only [facility] [address] [address] Jw Modi MD Chronic kidney disease, stage [...] Office Visit [facility] [address] [address] Chris Gonzáles MD [address] [phone] Health Maintenance Due Date Last [...] resultswithin the time period is included. Pathologist [facility] PTH 23 15 - 65 pg/mL [facility] Blood Venous blood / Unknown 10/12/2024 10:31 AM EDT 10/12/2024 Chris Gonzáles MD LAB BLOOD ORDERABLES Final Resul t [facility] [address] [place] [address] * (ABNORMAL) CBC (10/12/2024 10:30 AM EDT) Pathologist [facility] WBC 7.2 3.4 - 10.8 x10E3/uL [facility] RBC 5.55(H) 3.77 - 5.28 x10E6/uL [facility] Hemoglobin 12.5 11.1 - 15.9 g/dL [facility] Hematocrit 41.5 34.0 - 46.6 % [facility] MCV 75(L) 79 - 97 fL [facility] MCH 22.5(L) 26.6 - 33.0 pg [facility] MCHC 30.1(L) 31.5 - 35.7 g/dL [facility] RDW 16.8(H) 11.7 - 15.4 % [facility] Platelets 373 150 - 450 x10E3/uL [facility] 10/12/2024 10:3 0 AM EDT 10/12/2024 us Chris Gonzáles MD LAB BLOOD ORDERABLES Final Resul t [facility] [address] [place] [address] * (ABNORMAL) Urine Immunofixation Electrophoresis (10/12/2024 10:29 AM EDT) Pathologist [facility] APARNA Interpretation: U Comment(A) [facility] Comment: A faint band was noted in lambda; suggestive of free monoclonal protein. Recommend retesting in 4-6 months. Urine 10/12/2024 10:2 9 AM EDT 10/12/2024 us Chris Gonzáles MD LAB URINE ORDERABLES [facility]ul t [facility] [address] [place] [address] * (ABNORMAL) [place]/Lambda free LT chains w/ratio, Serum (10/12/2024 10:29 AM EDT) Pathologist [facility] Free [place] Lt Chains, S 31.2(H) 3.3 - 19.4 mg/L [facility] Free Lambda Lt Chains, S 29.0(H) 5.7 - 26.3 mg/L [facility] Free [place]/Lambda Ratio 1.08 0.26 - 1.65 [facility] Blood Venous blood / Unknown 10/12/2024 10:29 AM EDT 10/12/2024 us Chris Gonzáles MD LAB BLOOD ORDERABLES Final Resul t Performing Organization Address [facility] Co de Phone Number [email or web address] [address] [place] [address] * (ABNORMAL) Calcium (10/12/2024 10:29 AM EDT) Calcium 10.7(H) 8.7 - 10.3 mg/dL [facility] Comment:Verified by repeat analysis Blood Venous blood / Unknown 10/12/2024 10:29 AM EDT 10/12/2024 us Chris Gonzáles MD LAB BLOOD ORDERABLES Final Resul t Performing Organization Address [facility] de Phone Number [facility] [address] [place] [address] * (ABNORMAL) Protein, Total, Random Urine w/Creatinine (Protein/Creat Ratio) (10/06/2024 11:27 AM EDT) Creatinine, Ur 116.9 Not Estab. mg/dL [facility] Protein, Ur 30.7 Not Estab. mg/dL [facility] Urine Protein/Creati nine Ratio 263(H) 0 - 200 mg/g creat [facility] Urine specimen (specimen) Urine specimen obtained by clean catch procedure / Unknown 10/06/2024 11:27 AM EDT 10/06/2024 us Jw Modi MD LAB URINE ORDERABLES Final Re sult Performing Organization Address [facility] Co de Phone Number [email or web address] [facility] [address] [place] [address] * Vitamin D 25 Hydroxy (10/06/2024 11:27 AM EDT) Vitamin D, 25-OH, Total 36.6 30.0 - 100.0 ng/mL [facility] Comment: Vitamin D deficiency has been defined by the [place] of [employer] and an Endocrine Society practice guideline as a level of serum 25-OH vitamin D less than 20 ng/mL (1,2). The Endocrine Society went on to further define vitamin D insufficiency as a level between 21 and 29 ng/mL (2). 1. IOM ([place] of [employer]). 2010. Dietary reference intakes for [...] BLOOD ORDERABLES Final Re sult [facility] [address] [place] [address] * (ABNORMAL) CBC and Differential (10/06/2024 11:27 AM EDT) WBC 7.0 3.4 - 10.8 x10E3/uL [facility] RBC 6.10(H) 3.77 - 5.28 x10E6/uL [facility] Hemoglobin 13.4 11.1 - 15.9 g/dL [facility] Hematocrit 46.0 34.0 - 46.6 % [facility] MCV 75(L) 79 - 97 fL [facility] MCH 22.0(L) 26.6 - 33.0 pg [facility] MCHC 29.1(L) 31.5 - 35.7 g/dL [facility] RDW 15.8(H) 11.7 - 15.4 % [facility] Platelets 351 150 - 450 x10E3/uL [facility] Neutrophils Relative 56 Not Estab. % [facility] Lymphocytes Relative 33 Not Estab. % [facility] Monocytes 7 Not Estab. % [facility] Eosinophils Relative 3 Not Estab. % [facility] Basophils Relative 1 Not Estab. % [facility] Neutrophils Absolute 3.9 1.4 - 7.0 x10E3/uL [facility] Lymphocytes Absolute 2.3 0.7 - 3.1 x10E3/uL [facility] Monocytes Absolute 0.5 0.1 - 0.9 x10E3/uL [facility] Eosinophils Absolute 0.2 0.0 - 0.4 x10E3/uL [facility] Basophils Absolute 0.0 0.0 - 0.2 x10E3/uL [facility] Immature Granulocytes 0 Not Estab. % [facility] Immature Grans (Absolute) 0.0 0.0 - 0.1 x10E3/uL [facility] Blood specimen (specimen) Venous blood / Unknown 10/06/2024 11:27 AM EDT 10/06/2024 us Jw Modi MD LAB BLOOD ORDERABLES Final Re sult [facility] [address] [place] [address] * Uric Acid (10/06/2024 11:27 AM EDT) Uric Acid 5.0 3.1 - 7.9 mg/dL [facility] Comment:Therapeutic target f or gout patients: <6.0 Blood specimen (specimen) Venous blood / Unknown 10/06/2024 11:27 AM EDT 10/06/2024 us Jw Modi MD LAB BLOOD ORDERABLES Final Re sult Performing Organization Address [facility]/ZIP Co de Phone Number [facility] [address] [place] [address] * Phosphorus (10/06/2024 11:27 AM EDT) Phosphorus 3.3 3.0 - 4.3 mg/dL [facility] Blood specimen (specimen) Venous blood / Unknown 10/06/2024 11:27 AM EDT 10/06/2024 Jw Modi MD LAB BLOOD ORDERABLES Final Re sult Performing Organization Address [facility] de Phone Number [facility] [address] [place] [address] * Magnesium (10/06/2024 11:27 AM EDT) Magnesium 1.8 1.6 - 2.3 mg/dL [facility] Blood specimen (specimen) Venous blood / Unknown 10/06/2024 11:27 AM EDT 10/06/2024 us Jw Modi MD LAB BLOOD ORDERABLES Final Re sult Performing Organization Address [facility] Co de Phone Number [facility] [address] [place] [address] * (ABNORMAL) Comprehensive Metabolic Panel (10/06/2024 11:27 AM EDT) Glucose 169(H) 70 - 99 mg/dL [facility] BUN 22 8 - 27 mg/dL [facility] Creatinine 1.12(H) 0.57 - 1.00 mg/dL [facility] eGFR CKD-EPI CR 2020 52(L) >59 mL/min/1.7 3 [facility] BUN/Creatinine Ratio 20 12 - 28 [facility] Sodium 138 134 - 144 mmol/L [facility] Potassium 5.1 3.5 - 5.2 mmol/L [facility] Chloride 101 96 - 106 mmol/L [facility] Bicarbonate (CO2) 17(L) 20 - 29 mmol/L [facility] Calcium 10.7(H) 8.7 - 10.3 mg/dL [facility] Total Protein 7.8 6.0 - 8.5 g/dL [facility] Albumin 4.7 3.8 - 4.8 g/dL [facility] Globulin 3.1 1.5 - 4.5 g/dL [facility] Total Bilirubin 0.3 0.0 - 1.2 mg/dL [facility] Alkaline Phosphatase 82 44 - 121 IU/L [facility] AST (SGOT) 20 0 - 40 IU/L [facility] ALT (SGPT) 16 0 - 32 IU/L [facility] Blood specimen (specimen) Venous blood / Unknown 10/06/2024 11:27 AM EDT 10/06/2024 us Jw Modi MD LAB BLOOD ORDERABLES Final Re sult [facility] [address] [place] [address] * (ABNORMAL) Hemoglobin A1c (2023 11:26 AM EDT) Hemoglobin A1C 7.2(H) 4.8 - 5.6 % [facility] Comment: Prediabetes: 5.7 - 6.4 Diabetes: >6.4 Glycemic control for adults with diabetes: <7.0 Blood specimen (specimen) Venous blood / Unknown 2023 11:26 AM EDT 2023 Narrative [facility] - 05/24/2023 3:06 AM EDT Performed at: - [facility] [address] [id number] [employer] Fabricator: Kortney Alves MD, Phone: [phone] Alexandra Lara MD LAB BLOOD ORDERABLES Final Result [facility] from Last 3 Months or Most Recently Relevant to Health Maintenance Insurance Medicare [facility] Medicare [facility] Care Teams Supervisor Print Line Relationship Specialty Start Date End Date Ailyn Garzon MD [address] [place], [place] PCP - General Internal Medicine 09/10/21
== END 2024-10-28 09:53 | disposition home or self-care (01) ==
LOC: HO.ENCR 08:59
PROVIDERS: PCP Internal Medicine; Visit Provider Internal Medicine Endocrinology, Diabetes & Metabolism
DX: M81.0 Age-related osteoporosis without current pathological fracture (principal); E11.65 Type 2 diabetes mellitus with hyperglycemia; Z79.4 Long term (current) use of insulin; E04.1 Nontoxic single thyroid nodule
CPT/HCPCS: 99214; G2211

== ENCOUNTER → 2024-10-28 08:58 | Outpatient (BNVA) | payer MEDICARE, OTHER, SELFPAY | PROVIDERS: PCP Internal Medicine; Visit Provider Internal Medicine Endocrinology, Diabetes & Metabolism | DX: M81.0 Age-related osteoporosis without current pathological fracture (principal); E11.65 Type 2 diabetes mellitus with hyperglycemia; Z79.4 Long term (current) use of insulin; E04.1 Nontoxic single thyroid nodule; Z98.890 Other specified postprocedural states | CPT/HCPCS: 82947; 99212 ==

== ENCOUNTER 2025-01-19 08:56 | Outpatient (AMB) | payer MEDICARE, OTHER, SELFPAY ==
--- NOTE | 2025-01-19 08:57 | MHC.OFFVIS ---
Intake Visit Reasons: T2DM, osteoporosis Allergies atorvastatin Adverse Reaction (Intermediate, Verified 10/28/24 09:19) myalgia dulaglutide (From Trulicity) Adverse Reaction (Intermediate, Verified 10/28/24 09:19) nausea glipizide Adverse Reaction (Intermediate, Verified 10/28/24 09:19) patient PENDING SALE TO [facility] Medical History (Updated 10/24/24 @ 11:32 by Ailyn Garzon MD) Abnormal SPEP Vaginitis Diabetes mellitus Breast cancer screening Dysuria SOB (shortness of breath) on exertion Guaiac positive stools Cough CKD (chronic kidney disease) Vitamin D deficiency Thyroid nodule H. pylori duodenitis Esophageal hernia Tubular adenoma of colon Common bile duct dilatation GERD (gastroesophageal reflux disease) Hypercholesterolemia Osteoporosis Hypertension Type 2 diabetes mellitus with hyperglycemia Insomnia Surgical History Hx of cataract surgery History of back surgery S/P epidural steroid injection Status post lumbar spine surgery for decompression of spinal cord H/O: hysterectomy History of partial hysterectomy Family History Father No problems noted. Mother Diabetes Social History Household Members: None Housing: House Are you a primary intensive care ambulance paramedic to a significant other at home: No Alcohol intake: never Patient Tobacco Use Status: Never used Tobacco Tobacco use type: Cigarette e-Cigarette/Vaping Use: Never Used Second Hand Smoke Exposure: No service: No Current occupational status: retired Cognitive needs: No Hearing needs: No Vision needs: Yes (Glasses) Coding
--- NOTE | 2025-01-19 09:00 | MHC.OFFVIS ---
Vital Signs 01/19/25 09:06 Height 5 ft 3.31 in Weight 158 lb 11.725 oz BMI 27.8 BP 124/64 Blood Pressure Location Rt brachial Position Sitting Pulse 78 Pulse Source Pulse Oximeter Pulse Oximetry (%) 97 Oxygen Delivery Method Room Air Intake Visit Reasons: T2DM, osteoporosis Intake Note: Patient present today to follow up on Diabetes Mellitus and Osteoporosis. Patient receives Dexcom supplies through: [employer] Last Diabetic Eye exam: approx 3 month ago Last Podiatry Visit: Does not see a Director Clinical Data Random Glucose: 199 mg/dl HgA1C: 8.8% 01/19/2025 Administrative Fellow Required: No Accompanied by: Self / Same As Patient Allergies atorvastatin Adverse Reaction (Intermediate, Verified 01/19/25 09:07) myalgia [facility] Adverse Reaction (Intermediate, Verified 01/19/25 09:07) nausea glipizide Adverse Reaction (Intermediate, Verified 01/19/25 09:07) patient Medication List - Last Reconciled 01/19/25 by Luis Brooks MD amlodipine 5 mg (1/2 x 10 mg) PO DAILY ascorbic acid (vitamin C) 500 mg PO DAILY aspirin 81 mg PO DAILY blood sugar diagnostic (OneTouch Ultra Test strips) 3x daily blood-glucose sensor (Dexcom G7 Sensor device) As directed change every 10 days calcium citrate 500 mg (2 x 250 mg calcium) PO BID clotrimazole 1% 1 appl topical BID 4 weeks doxepin (Silenor) 3 mg PO BEDTIME PRN ferrous sulfate 325 mg PO DAILY gabapentin 200 mg (2 x 100 mg) PO BEDTIME 90 days insulin aspart U-100 (Novolog FlexPen U-100 Insulin aspart) 10 units (0.1 mL) subcut TID insulin degludec (Tresiba FlexTouch U-100 insulin) 30 units (0.3 mL) subcut DAILY ketorolac 0.5% drps ophthalmic (eye) losartan 100 mg PO DAILY metformin 500 mg PO BID pen needle, diabetic As directed rosuvastatin 40 mg PO DAILY tirzepatide (Mounjaro) 2.5 mg (0.5 mL) subcut QWEEK 3 months HPI Comments Details: 74 YO F with PMHx T2DM who is seen in F/U for Osteoporosis , hyperparathyroidism and type 2 diabetes. Of note, the patient is somewhat of a poor historian. 1) T2DM: Initially diagnosed with T2DM in 1999. Was initially started on treatment with Metformin. She started using Insulin in 2016. Current regimen Metformin 500 mg PO BID and Tresiba 30 units daily and Novolog 10 units TID . mounjaro 2..5 mg Qwkly She has failed treatment with Trulicity as well as Glipizide. She was unable to tolerate the Trulicity due to GI distress. She was intolerant to Jardiance due to recurrent vaginal yeast infection.. Uses Dexcom sensor. Download shows she is using the sensor 100% of the time. Average glucose is 218 with G mi of 8.5 and standard deviation 32.7 . 35% range with 65% hyperglycemia and no hypoglycemia . Pattern shows post-breakfast excursion with maintain hyperglycemia throughout the afternoon Reports rare low sugars when she does not eat. Is aware of the rule of 15's to treat. No low sugars since her last visit. Treats lows with juice. Checks sugar after to ensure it is rising. Family history of T2DM in her Mother. Has eyes checked yearly, last eye exam 3 mos ago , has retinopathy. Has neuropathy. Is on Gabapentin. Has nephropathy, on Losartan 100 mg PO daily. UAC 27.4 01/06/2021. Has HLD, on Atorvastatin 40 mg PO daily. Now on 80 mg atorvastatin . Admits to only taking 40 mg at present Denies CAD. Had diabetes education. 2) Osteoporosis: She has a longstanding history of hypercalcemia. She also has a long standing history of Osteoporosis of her spine and hip. She appears to have failed treatment with Fosamax. BMD has acutely worsened over the past 2 years. After our initial visit we completed a full workup for secondary causes of Osteoporosis. SPEP revealed possible elevated M protein. She was referred to Heme-Onc and had additional testing. This was thought to represent MGUS. She continues to follow with Heme-Onc. First diagnosed in her late 50's. Received treatment in the past with Fosamax for 1 years 5 yrs a go , but stopped this around the age of 65. Tolerated treatment well without complication. No history of pathologic fracture or ONJ. Has 0 servings of dietary calcium. Does not take Calcium. Takes 5000 IU of Vitamin D daily. Fracture history: Did have a fracture of her leg. This was a fragility fracture. She had a hysterectomy in her mid 40's and never had symptoms of menopause after. History of Kidney stones: Denies Family history of Osteoporosis in her Mother. UTD on dental cleanings and sees dentist every 6 months. No planned upcoming dental work or extractions. We discussed Prolia and she was initially agreeable to this, but then changed her mind and refused treatment. Also has a NTMNG. She underwent FNA biopsy 08/15/2022 of her left mid pole 1.7 cm thyroid nodule with benign (bethesda category II) cytology. DXA: 07/30/2022 FINDINGS: AP SPINE L1-L2 (excluding L3 and L4): The data of L1-L4 has been changed to exclude the L3 and L4 vertebral bodies, because hardware at these levels may cause overestimation of lumbar spine density. Current: BMD 0.771 g/cm2, Z-score -1.5, T-score -3.3, osteoporosis, 14.6% increase from previous, 3.1% decrease from baseline (<5% change is not significant). Prior: BMD 0.673 g/cm2. Baseline: BMD 0.796 g/cm2. LEFT FEMUR, NECK: Current: BMD 0.652 g/cm2, Z-score -1.0, T-score -2.8, osteoporosis. Prior: BMD 0.641 g/cm2. Baseline: BMD 0.716 g/cm2. LEFT FEMUR, TOTAL: Current: BMD 0.641 g/cm2, Z-score -1.3, T-score -2.9, osteoporosis, 1.6% increase from previous, 11.8% decrease from baseline (<5% change is not significant). Prior: BMD 0.631 g/cm2. Baseline: BMD 0.727 g/cm2. LEFT FOREARM RADIUS 33%: BMD 0.517 g/cm2, Z-score -2.1, T-score -4.1, osteoporosis. Prior:? Not previously measured. Labs: Laboratory Tests 03/27/22 08:20 Creatinine 1.05 Estimated GFR 52 The patient is a 74-year-old female presenting with concerns related to osteoporosis and hypercalcemia management. Labs at [facility] showed mildly elevated calcium with inappropriately normal to high normal PTH levels. She then saw Dr. Castaneda for possible surgical consultation who felt that this may not represent primary hyperparathyroidism and ordered a different assay of PTH which is pending and will be available tomorrow. Dr Castaneda repeat labs which showed a corrected calcium for albumin was normal, normal PTH and a undetectable 24 hour urinary calcium Consideration was given to Prolia in the setting of CKD stage IIIB. Seeing Dr. aPl nephrology 04/2025 . Not taking calcium supplementation [facility] Medical History (Updated 10/24/24 @ 11:32 by Ailyn Garzon MD) Abnormal SPEP Vaginitis Diabetes mellitus Breast cancer screening Dysuria SOB (shortness of breath) on exertion Guaiac positive stools Cough CKD (chronic kidney disease) Vitamin D deficiency Thyroid nodule H. pylori duodenitis Esophageal hernia Tubular adenoma of colon Common bile duct dilatation GERD (gastroesophageal reflux disease) Hypercholesterolemia Osteoporosis Hypertension Type 2 diabetes mellitus with hyperglycemia Insomnia Surgical History Hx of cataract surgery History of back surgery S/P epidural steroid injection Status post lumbar spine surgery for decompression of spinal cord H/O: hysterectomy History of partial hysterectomy Family History Father No problems noted. Mother Diabetes Social History Household Members: None Housing: House Are you a primary critical care paramedic to a significant other at home: No Alcohol intake: never Patient Tobacco Use Status: Never used Tobacco Tobacco use type: Cigarette e-Cigarette/Vaping Use: Never Used Second Hand Smoke Exposure: No service: No Current occupational status: retired Cognitive needs: No Hearing needs: No Vision needs: Yes (Glasses) Physical Exam Vital Signs: Last Vital Signs BP 124/64 01/19/25 09:06 BMI result Body Mass Index 27.8 Absence of Cushingoid features. Absence of acromegalic features. Neck exam reveals nl size thyroid about 15 gms. No thyroid nodules palpable. No carotid bruits present. Lungs CTA. Heart S1 S2, Reg R/R. No M/R/ G. Skin exam reveals absence of vitiligo or acanthosis nigricans. Abdominal exam reveals Soft NT/ND with NA BS. No organomegaly present. Neck Other: . Extrem Other: Visual exam of foot performed. No ulcerations or open lesions. No onchomycosis, no callouses.Pulses 2 + distally Sensation intact to monofilament exam. Vibratory sensation sensed is intact with 128 Hz tuning fork Results Reviewed Results Reviewed: Laboratory Last Values Glucose (Clinic) 199 mg/dL (60-115) H 01/19/25 09:12 Assessment & Plan Assessment & Plan (1) Osteoporosis: Code(s): M81.0 - Age-related osteoporosis without current pathological fracture Category: Medical Plan: Secondary workup was negative except for MGUS. Patient is currently on calcium and vitamin-D with high risk for fracture. Repeat workup at [facility] showed normal corrected calcium , normal PTH but low 24 hour urinary calcium We will restart the calcium supplementation to calcium citrate 600 mg b.i.d. [id number] as well as vitamin D3 2000 IU per day . Will recheck calcium, albumin, PTH, 25 hydroxy vitamin-D, 24 hour urine for calcium and creatinine in 8 weeks at [facility] ( [facility]) Have patient follow-up with Nephrology for optimization of CKD-BMD. Once patient is calcium replete, could then consider use of Prolia T (2) Type 2 diabetes mellitus with hyperglycemia: Comment: Dr. Villalta and Edith Code(s): E11.65 - Type 2 diabetes mellitus with hyperglycemia Category: Medical Qualifiers: Diabetes mellitus residential insulin use: with residential use Qualified Code(s): E11.65 - Type 2 diabetes mellitus with hyperglycemia; Z79.4 - sprayer hand (current) use of insulin Plan: This 72-year-old white female with history of type 2 diabetes being treated with half dose metformin , Mounjaro and basal-bolus insulin with i deteriorated poor glycemic control and known microvascular complications namely CKD and neuropathy. Plan is to increase the Tresiba to 36 units and then 42 units if not optimal to attempt to get point of care <150 . Will increase Mounjaro to 5 mg Q weekly Lastly she was asked to contact the bareback rider Dr. pal regarding the declining GFR and optimization of CKD- BMD. Will have patient follow-up with the natural resources extension educator in six weeks and with me in three months (3) Thyroid nodule: Code(s): E04.1 - Nontoxic single thyroid nodule Category: Medical Plan: Status post FNA of right midpole nodule with benign cytology. Recent US showed R lower pole nodule as well I have patient follow up with Dr. Quesada an expert in thyroid ultrasound practice Continue surveillance through ultrasound evaluations and consider further assessments of FNA if indicated by physical findings and repeat ulcer. Orders: Orders AMB Hemoglobin A1c Today E11.65 - Type 2 diabetes mellitus with hyperglycemia, Z79.4 - sprayer hand (current) use of insulin Parathyroid Hormone Intact 3 Months M81.0 - Age-related osteoporosis without current pathological fracture Creatinine, 24 Hr Group 3 Months M81.0 - Age-related osteoporosis without current pathological fracture Calcium, 24 Hr Ur 10 Weeks M81.0 - Age-related osteoporosis without current pathological fracture Vitamin D 25-OH Total 3 Months M81.0 - Age-related osteoporosis without current pathological fracture Medications: New Mounjaro (tirzepatide) 5 mg (0.5 mL) subcut QWEEK 2 mL 5RF NS Changed From insulin degludec (Tresiba FlexTouch U-100 insulin) 30 units (0.3 mL) subcut DAILY 30 mL 5RF To Tresiba FlexTouch U-100 (insulin degludec) 36 units (0.36 mL) subcut DAILY 30 mL 5RF NS Discontinued tirzepatide (Mounjaro) for 4 weeks Discontinued Reason: Doctor's Order 2.5 mg (0.5 mL) subcut QWEEK 3 months 6.5 mL 4RF Coding Level of Care Code Complex visit Add On G2211 Diagnoses Osteoporosis M81.0 Type 2 diabetes mellitus with hyperglycemia, with long-term current use of insulin E11.65; Z79.4 Diabetes mellitus residential insulin use: with galvanizer use Thyroid nodule E04.1
[2025-01-19 09:06] VITALS: BP 124/64; PULSE 78; O2SAT 97; BMI 27.8
[2025-01-19 09:17] LABS: Glucose, Whole Blood 199 mg/dL (60-115)
--- OUTSIDE RECORDS SUMMARY | 2025-01-19 09:24 | XMS_ITS | Clinical Summary ---
Author Organization [facility] Address [address] [place] [address] Phone Care Team Providers Care Animal Anatomist Name Role Phone Self-Referred, Patient Unavailable Unavailab Wolf Alvarado MD Unavailable Pcp, Not Required Primary [...] 66 Admit Type: Outpatient Gender: Female Room: [place] [address] Exam Type: Colonoscopy Indications: Iron deficiency anemia [...] monitored continuously. 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 All rights reserved. The codes documented in this report are preliminary and upon surgical nurse reviewmay be revised to meet current compliance requirements. [address] [place] [address] us Unknown Unknown GI PROCEDURE ORDERABLES Edite d Result - Final from Last 3 Months or Most Recently Relevant to Health Maintenance Insurance [facility] MEDICARE SUPPLEMENT MEDICARE PART A & B Member Subscriber Plan / Payer (Ef fective 2017-Present) Name:Korina Hancock Relation to Subscriber:Self Name:KORINA HANCOCK Payer ID:Not on file Type:Indemnity Address: [place] [id number] MEDICARE PART A [place] [address] [address] MEDICARE SUPPLEMENT MEDICARE PART A & B Member Subscriber Plan / Payer (Ef fective 2015-Present) Name:Korina Hancock Member ID:[id number] Relation to Subscriber:Self Name:Korina Hancock Subscriber ID:[id number] Payer ID:[id number] Group ID:Not on file Type:Medicare Address: [employer] [id number] MEDICARE PART A [place] [address] [address] MEDICARE SUPPLEMENT MEDICARE PART A & B MEDICARE PART A & B Member Subscriber Plan / Payer ( fective 2017-Present) Name:AndieKorina unger Relation to Subscriber:Self Name:KORINA HANCOCK Payer ID:Not on file Type:Indemnity Address: [place] [id number] MEDICARE PART A & B [facility] MEDICARE SUPPLEMENT MEDICARE PART A & B [facility] MEDICARE SUPPLEMENT MEDICARE PART A & B Care Teams Animal Anatomist Relationship Specialty Start Date End Date Pcp, Not Required [address] [place] [address] PCP - General 07/27/21 Self-Referred, Patient 07/24/21 Wolf Pate MD [address] [place] [phone] [email or web address] 07/26/21 Additional Source Comments The information contained in this document represents components of the legal health record. It is not the complete legal health record.[facility]
--- OUTSIDE RECORDS SUMMARY | 2025-01-19 09:24 | XMS_ITS | Encounter Summary ---
Author Organization [facility] Address [address] [place] [address] Phone Care Team Providers Care Director Of Managed Services Name Role Phone Ashely Hayes MD Primary Care Provider Self-Referred, Patient Unavailable Unavailab Wolf Alvarado MD Unavailable [phone] Pcp, Not Required Primary Care Provider Unavaila ble Encounter Details Date Type Department Care Team (Late st Contact Info) Description 12/23/2016 Procedure Pass [facility] Endoscopy Admitting Dept Virtual Department [address] [place] [address] Social History Tobacco Use Types Packs/Day Years [...] on filedocumented in this encounter Care Teams Director Of Managed Services Relationship Specialty Start Date End Date Ashely Hayes MD [address] [place] [address] PCP - General Pulmonary Disease 12/20/16 07/26/21 Pcp, Not Required [address] [place] [id number] PCP - General 07/27/21 Self-Referred, Patient 07/24/21 Wolf Pate MD [address] [place] [phone] [email or web address] Oncology 07/26/21 documented as of this encounter Additional Source Comments The information contained in this document represents components of the legal health record. It is not the complete legal health record.[facility]
== END 2025-01-19 09:33 | disposition home or self-care (01) ==
LOC: HO.ENCR 08:56
PROVIDERS: PCP Internal Medicine; Visit Provider Internal Medicine Endocrinology, Diabetes & Metabolism
DX: E11.65 Type 2 diabetes mellitus with hyperglycemia (principal); Z79.4 Long term (current) use of insulin; M81.0 Age-related osteoporosis without current pathological fracture; E04.1 Nontoxic single thyroid nodule
CPT/HCPCS: 99214; G2211

== ENCOUNTER → 2025-01-19 08:56 | Outpatient (BNVA) | payer MEDICARE, OTHER, SELFPAY | PROVIDERS: PCP Internal Medicine; Visit Provider Internal Medicine Endocrinology, Diabetes & Metabolism | DX: E11.65 Type 2 diabetes mellitus with hyperglycemia (principal); Z79.4 Long term (current) use of insulin; Z79.84 Long term (current) use of oral hypoglycemic drugs; Z79.85 Long-term (current) use of injectable non-insulin antidiabetic drugs; Z79.82 Long term (current) use of aspirin; M81.0 Age-related osteoporosis without current pathological fracture; E04.1 Nontoxic single thyroid nodule | CPT/HCPCS: 82947; 99212 ==

== ENCOUNTER 2025-01-21 11:51 | Outpatient (REF) | payer MEDICARE, OTHER, SELFPAY ==
--- NOTE | ~2025-01-21 | MM_ITS ---
EXAMINATION: MM SCREENING DIGITAL BREAST TOMOSYNTHESIS, BILATERAL CLINICAL INFORMATION: Screening. Asymptomatic. COMPARISON: Mammography: Comparison is made with available priors TECHNIQUE: Digital breast mammography with tomosynthesis is performed in both the craniocaudal and mediolateral oblique views along with computer-aided detection (CAD). FINDINGS: There are scattered areas of fibroglandular density. There are no significant masses, abnormal calcifications, or other abnormalities. MM/MM tomosynthesis screening BI IMPRESSION: No mammographic evidence of malignancy. ASSESSMENT: BI-RADS Category 1: Negative RECOMMENDATION: Routine annual mammography screening. 1 year F/U This examination should not preclude the clinical evaluation of a suspicious palpable abnormality. This patient's information was entered into a reminder system with a target due date for their next mammogram. Electronically signed by: Opal Key DO 01/24/2025 12:45 PM [facility]
== END 2025-01-21 11:52 | disposition home or self-care (01) ==
LOC: HO.MAMMO 11:51
PROVIDERS: PCP Internal Medicine; Visit Provider Internal Medicine
DX: Z12.31 Encounter for screening mammogram for malignant neoplasm of breast (principal)
CPT/HCPCS: 77063; 77067

== ENCOUNTER → 2025-01-21 12:00 | Outpatient (BNV) | payer MEDICARE, OTHER, SELFPAY | PROVIDERS: PCP Internal Medicine; Visit Provider Internal Medicine | DX: Z12.31 Encounter for screening mammogram for malignant neoplasm of breast (principal) | CPT/HCPCS: 77063; 77067 ==